=== PATIENT | female | born 1970 | race Caucasian/White ===

== ENCOUNTER 2017-06-17 14:29 | Inpatient (IN) | payer OTHER ==
--- NOTE | 2017-06-17 14:47 | PDOC ---
Rapid Medical Evaluation Time Seen by Provider: 06/17/17 14:44 Medical Evaluation: 06/17/17 14:44 I have performed a brief in-person evaluation of this patient. The patient presents with a chief complaint of: sharp pain to LLQ since yesterday x denies hematuria, hx of stones but this is different pain, +nausea, denies vomiting/diarrhea, fever yesterday 102F, LMP - "around beg to middle of month" Pertinent physical exam findings: well appearing, VSS, no abd tenderness/ guarding I have ordered the following: labs, urine The patient will proceed to the ED for further evaluation. Discharge Disposition - Diagnosis Left sided abdominal pain - Referrals - Patient Instructions - Post Discharge Activity
[2017-06-17 15:08] LABS: HEMOGLOBIN 13.4 GM/dL (10.7-15.3); MCH 29.7 pg (25.7-33.7); MCHC 34.5 g/dl (32.0-36.0); MEAN PLT VOLUME 8.8 fl (7.5-11.1); PLATELET COUNT 177 K/MM3 (134-434); RBC 4.53 M/mm3 (3.60-5.2); WHITE BLOOD COUNT 9.1 K/mm3 (4.0-10.0)
[2017-06-17 15:45] LABS: ALBUMIN 3.5 g/dl (3.4-5.0); ANION GAP 8 (8-16); BILIRUBIN,TOTAL 0.5 mg/dL (0.2-1.0); BLOOD UREA NITROGEN 5 mg/dL (7-18); CALCIUM 8.5 mg/dL (8.5-10.1); CHLORIDE 106 mmol/L (98-107); CO2 25 mmol/L (21-32); CREATININE 0.6 mg/dL (0.55-1.02); GLUCOSE,RANDOM 101 mg/dL (74-106); POTASSIUM 3.6 mmol/L (3.5-5.1); SGOT/AST 261 U/L (15-37); SODIUM 139 mmol/L (136-145); TOT PROT 7.2 g/dl (6.4-8.2)
[2017-06-17 15:46] LABS: ALK PHOS 330 U/L (45-117)
[2017-06-17 15:47] LABS: SGPT/ALT 457 U/L (12-78)
--- NOTE | 2017-06-17 16:07 | PDOC ---
History of Present Illness - General Chief Complaint: Pain Stated Complaint: LEFT SIDE PAIN Time Seen by Provider: 06/17/17 14:44 History Source: Patient Exam Limitations: No Limitations - History of Present Illness Initial Comments: 06/17/17 16:32 Patient is a 46-year-old female past medical history of depression, anxiety, asthma, who presents emergency department today complaining of left lower quadrant pain. Patient states her pain began approximately 3 days ago and has worsened since. She describes the pain as sharp. It radiates to her suprapubic region. She states that the pain is worse when sitting up. She is tried taking ibuprofen at home with no relief. She states that she ate out at [employer] 2- 3 days ago. Patient finished antibiotic treatment "amoxicillin "for recent tooth infection. Admits to subjective fevers, chills, abdominal pain. Denies shortness of breath, difficulty breathing, chest pain, palpitations, nausea, vomiting, diarrhea, constipation, frequency, urgency and hematuria. Last LMP was 05/31/2017. Past History - Travel Traveled outside of the country in the last 30 days: No Close contact w/someone who was outside of country & ill: No - Past Medical History Allergies/Adverse Reactions: Allergies Allergy/AdvReac Type Severity Reaction Status Date / Time No Known Allergies Allergy Verified 06/17/17 14:44 Home Medications: Ambulatory Orders Butalb/Acetaminophen/Caffeine [Bqojsg-Fyugmigs-Fvws 50-325-40] 1 each PO DAILY 06/17/17 Cholecalciferol (Vitamin D3) [Vitamin D3 -] 1,000 unit PO DAILY 06/17/17 Fluticasone Propionate [Flovent Diskus] 250 mcg IH DAILY 06/17/17 Hydroxyzine HCl 50 mg PO DAILY 06/17/17 Montelukast Na [Singulair -] 10 mg PO HS 06/17/17 Nystatin Cream [Mycostatin Cream -] 1 applic TP DAILY 06/17/17 Ranitidine [Zantac -] 150 mg PO BID 06/17/17 Trazodone HCl 50 mg PO DAILY 06/17/17 Norethindrone 0.35 mg PO DAILY 06/20/17 COPD: No Psychiatric Problems: Yes (depression, anxeity, panic attacks) Other medical history: migraines - Suicide/Smoking/Psychosocial Hx Smoking History: Never smoked Information on smoking cessation initiated: No Hx Alcohol Use: No Drug/Substance Use Hx: No Substance Use Type: None Review of Systems - Review of Systems Able to Perform ROS?: Yes Comments:: 06/17/17 16:29 CONSTITUTIONAL: Presnt: subjective fever, chills Absent: diaphoresis, generalized weakness, malaise, loss of appetite HEENT: Absent: rhinorrhea, nasal congestion, throat pain, throat swelling, difficulty swallowing, mouth swelling, ear pain, eye pain, visual Changes CARDIOVASCULAR: Absent: chest pain, loss of consciousness, palpitations, irregular heart rate, peripheral edema RESPIRATORY: Absent: cough, shortness of breath, dyspnea with exertion, orthopnea, wheezing, stridor, hemoptysis GASTROINTESTINAL: Present: abdominal pain, LLQ Absent: abdominal distension, nausea, vomiting, diarrhea, constipation, melena, hematochezia GENITOURINARY: Absent: dysuria, frequency, urgency, hesitancy, hematuria, flank pain, genital pain MUSCULOSKELETAL: Absent: myalgia, arthralgia, joint swelling SKIN: Absent: rash, itching, pallor HEMATOLOGIC/IMMUNOLOGIC: Absent: easy bleeding, easy bruising, lymphadenopathy, frequent infections ENDOCRINE: Absent: unexplained weight gain, unexplained weight loss, heat intolerance, cold intolerance NEUROLOGIC: Absent: headache, focal weakness or paresthesias, dizziness, unsteady gait, seizure, mental status changes, bladder or bowel incontinence PSYCHIATRIC: Absent: anxiety, depression, suicidal or homicidal ideation, hallucinations. Is the patient limited [place] proficient: No *Physical Exam - Vital Signs Last Vital Signs Temp Pulse Resp BP Pulse Ox 98.5 F 88 18 141/80 100 06/17/17 14:45 06/17/17 14:45 06/17/17 14:45 06/17/17 14:45 06/17/17 14:45 - Physical Exam Comments: 06/17/17 16:29 GENERAL: Well developed, well nourished. Awake and alert. No acute distress. HEENT: Normocephalic, atraumatic. PERRLA, EOMI. No conjunctival pallor. Sclera are non- icteric. Moist mucous membranes. Oropharynx is clear. NECK: Supple. Full ROM. No JVD. Carotid pulses 2+ and symmetric, without bruits. No thyromegaly. No lymphadenopathy. CARDIOVASCULAR: Regular rate and rhythm. No murmurs, rubs, or gallops. Distal pulses are 2+ and symmetric. PULMONARY: No evidence of respiratory distress. Lungs clear to auscultation bilaterally. No wheezing, rales or rhonchi. ABDOMINAL: Present: LLQ pain with light and deep palpation. Soft. Non-distended. No rebound or guarding. No organomegaly. Normoactive bowel sounds. MUSCULOSKELETAL Normal range of motion at all joints. No bony deformities or tenderness. No CVA tenderness. EXTREMITIES: No cyanosis. No clubbing. No edema. No calf tenderness. SKIN: Warm and dry. Normal capillary refill. No rashes. No jaundice. NEUROLOGICAL: Alert, awake, appropriate. Cranial nerves 2-12 intact. No deficits to light touch and temperature in face, upper extremities and lower extremities. No motor deficits in the in face, upper extremities and lower extremities. Normoreflexic in the upper and lower extremities. Normal speech. Toes are down- going bilaterally. Gait is normal without ataxia. PSYCHIATRIC: Cooperative. Good eye contact. Appropriate mood and affect. ED Treatment Course - LABORATORY CBC & Chemistry Diagram: 06/19/17 07:24 06/18/17 07:05 - ADDITIONAL ORDERS Additional order review: Laboratory Results 06/17/17 14:55 Sodium 139 Potassium 3.6 Chloride 106 Carbon Dioxide 25 Anion Gap 8 BUN 5 L Creatinine 0.6 Creat Clearance w eGFR > 60 Random Glucose 101 Calcium 8.5 Total Bilirubin 0.5 AST 261 H ALT 457 H Alkaline Phosphatase 330 H Total Protein 7.2 Albumin 3.5 06/17/17 14:55 RBC 4.53 MCV 86.0 MCHC 34.5 RDW 14.0 MPV 8.8 Neutrophils % No Result Required. Lymphocytes % No Result Required. Medical Decision Making - Medical Decision Making 06/17/17 16:30 Patient is a 46-year-old female with past medical history of depression, anxiety , asthma, who presents to emergency department today complaining of left lower quadrant pain. Patient recently finished amoxicillin for tooth infection. Also ate at a restaurant, possible food poisoning? Left lower quadrant pain on exam with light and deep palpation. Labs ordered RME. We'll scan patient at this time with IV contrast and oral contrast to rule out diverticulitis versus colitis. Less likely kidney stone or appendicitis given location of pain. We'll reevaluate. 06/17/17 18:28 Labs remarkable for elevated liver enzymes. Pt. still pending CT. 06/17/17 19:00 Sign out given to ERICK Vázquez. Pt. pending CT and dispo. *DC/Admit/Observation/Transfer Diagnosis at time of Disposition: Left sided abdominal pain, Splenic infarction - Referrals - Patient Instructions - Post Discharge Activity
[2017-06-17 16:31] LABS: URINE APPEARANCE SLCLOUDY; URINE BILIRUBIN NEGATIVE (<2.0 mg/dL); URINE BLOOD 1+ (NEGATIVE); URINE COLOR YELLOW; URINE GLUCOSE (UA) NEGATIVE (NEGATIVE); URINE KETONE NEGATIVE (NEGATIVE); URINE LEUK ESTERASE NEGATIVE (NEGATIVE); URINE NITRITE NEGATIVE (NEGATIVE); URINE PROTEIN NEGATIVE (NEGATIVE)
[2017-06-17] MEDS ORDERED: SODIUM CHLORIDE 1,000 ML IV STA (16:32)
[2017-06-17] MEDS ORDERED: ACETAMINOPHEN 1000 MG/100 ML VIAL (NON FORMULARY) IVPB ONE (16:32)
[2017-06-17 16:33] LABS: PLATELET ESTIMATE ADEQUATE
[2017-06-17 16:51] LABS: HCG,QUALITATIVE URINE NEGATIVE
[2017-06-17 16:56] LABS: EPI CELLS MODERATE /HPF (FEW); URINE BACTERIA RARE /hpf (NONE SEEN); URINE MUCUS RARE
[2017-06-17] MEDS ORDERED: ACETAMINOPHEN INJECTION 100 ML IVPB ONE (16:56)
--- NOTE | 2017-06-17 21:15 | PDOC ---
*Physical Exam - Vital Signs Last Vital Signs Temp Pulse Resp BP Pulse Ox 98.5 F 88 18 141/80 100 06/17/17 14:45 06/17/17 14:45 06/17/17 14:45 06/17/17 14:45 06/17/17 14:45 Heart Score/ECG Review - History History: Slightly suspicious - Electrocardiogram EKG: Normal - Age Age: >/= 65 - Risk Factors Risk Factors Heart Score: Yes Hx Obesity Based on the list above the patient has:: 1-2 risk factors - Troponin Troponin: </= normal limit - Score Heart Score - Total: 3 ED Treatment Course - LABORATORY CBC & Chemistry Diagram: 06/17/17 14:55 06/17/17 14:55 - ADDITIONAL ORDERS Additional order review: Laboratory Results 06/17/17 06/17/17 16:13 14:55 Sodium 139 Potassium 3.6 Chloride 106 Carbon Dioxide 25 Anion Gap 8 BUN 5 L Creatinine 0.6 Creat Clearance w eGFR > 60 Random Glucose 101 Calcium 8.5 Total Bilirubin 0.5 AST 261 H ALT 457 H Alkaline Phosphatase 330 H Total Protein 7.2 Albumin 3.5 Urine Color Yellow Urine Appearance Slcloudy Urine pH 5.0 Ur Specific [place] 1.013 Urine Protein Negative Urine Glucose (UA) Negative Urine Ketones Negative Urine Blood 1+ H Urine Nitrite Negative Urine Bilirubin Negative Urine Urobilinogen 2.0 H Ur Leukocyte Esterase Negative Urine WBC (Auto) 3 Urine RBC (Auto) 4 Ur Epithelial Cells Moderate Urine Bacteria Rare Urine Mucus Rare Urine HCG, Qual Negative 06/17/17 14:55 RBC 4.53 MCV 86.0 MCHC 34.5 RDW 14.0 MPV 8.8 Neutrophils % No Result Required. Lymphocytes % No Result Required. - Medications Given in the ED: ED Medications Discontinued Medications Generic Name Dose Route Start Last Admin Trade Name Freq PRN Reason Stop Dose Admin Acetaminophen 1,000 mg 06/17/17 16:32 06/17/17 17:01 Ofirmev Injection - IVPB 06/17/17 16:33 1,000 mg ONCE ONE Administration Sodium Chloride 1,000 mls @ 1,000 mls/hr 06/17/17 16:32 06/17/17 16:45 Normal Saline - IV 06/17/17 17:31 1,000 mls/hr ASDIR STA Administration Progress Note - Progress Note Progress Note: 2101hrs: Spoke to Dr. Quintanilla/GI section gang. As per Dr. Jarrett, pt needs to be admitted with a hematology consult. Dr Jarrett re Hospitalist admit. Dr. Quintanilla will see pt tomorrow. 2120hrs: Spoke to Dr. Villalobos/hematology. Start Heparin bolus then drip. Will see pt in the am 2122hrs: [facility] *DC/Admit/Observation/Transfer Diagnosis at time of Disposition: Left sided abdominal pain, Splenic infarction - Discharge Dispostion Admit: Yes - Referrals Referrals: ON STAFF,NOT [Primary Care Provider] - - Patient Instructions - Post Discharge Activity
[2017-06-17] MEDS ORDERED: HEPARIN NA (PORCINE) 5,000 UNITS/ML 1ML VIAL IVPUSH PRN ×2 (22:26)
[2017-06-17] MEDS ORDERED: ACETAMINOPHEN 325 MG TABLET (FP) PO PRN (23:59)
--- NOTE | 2017-06-18 00:01 | HP ---
CHIEF COMPLAINT: " LUQ pain, fever " PCP: Dr. Cole. HISTORY OF PRESENT ILLNESS: Patient is a 46 year old female presented to the ED with the chief complaint of "LUQ pain" x 3 days. As per the patient, she started having LUQ suddenly, periumbilical area, intermittent, sharp, stabbing type of pain, non radiating, not relieved by any measures, limiting her to move or even sleep, 10/10 in intensity prompting to visit the ED for further evaluation . It was associated with nausea but no vomiting. Since 3 days, also had chest tightness, in the sternal area, non radiating, 5/10 in intensity. Patient mentions she had a temp of 101 F, had tooth ache, x 1.5 wks ago for which she visited her dentist. She was told she had a tooth infection and was given Amoxicillin QID, course of treatment is not completed but she stopped it yesterday due to LUQ thinking the abx to be the attributing cause. Also has been taking Motrin for tooth ache and Fever x 1 week. Denies sob, cough, palpitation, headache, dizziness, loc, trauma. Gives h/o use of OCP for more than 10 yrs, stopped taking OCP's since Feb, 2017. Sleep disturbed due to pain. Appetite decreased. Bowel/Bladder habit normal. LMP: 05/31/2017 As per the ED PA, she spoke with Dr. Villalobos/Dr. Jarrett who recommended to start the patient on Heparin drip. ER course was notable for: (1) Afebrile, hemodynamically stable, Transaminitis (2) Abdomen/Pelvis CT: showed Splenic infarct, spleenomegaly (3) NS 1L; Heparin Drip Recent Travel: None PAST MEDICAL HISTORY: Depression, Anxiety, Asthma PAST SURGICAL HISTORY: None Social History: Smoking: Denies Alcohol: Rarely Drugs: Denies Family History: Non contributory Allergies No Known Allergies Allergy (Verified 06/17/17 14:44) HOME MEDICATIONS: Home Medications Medication Instructions Recorded Butalb/Acetaminophen/Caffeine 1 each PO DAILY 06/17/17 [[id number] 50-325-40] Cholecalciferol (Vitamin D3) 1,000 unit PO DAILY 06/17/17 [Vitamin D3 -] Fluticasone Propionate [Flovent 250 mcg IH DAILY 06/17/17 Diskus] Hydroxyzine HCl 50 mg PO DAILY 06/17/17 Montelukast Na [Singulair -] 10 mg PO HS 06/17/17 Nystatin Cream [Mycostatin Cream -] 1 applic TP DAILY 06/17/17 Ranitidine [Zantac -] 150 mg PO BID 06/17/17 Trazodone HCl 50 mg PO DAILY 06/17/17 REVIEW OF SYSTEMS CONSTITUTIONAL: Present: Fever Absent: chills, diaphoresis, generalized weakness, malaise, loss of appetite, weight change HEENT: Absent: rhinorrhea, nasal congestion, throat pain, throat swelling, difficulty swallowing, mouth swelling, ear pain, eye pain, visual changes CARDIOVASCULAR: Absent: chest pain, syncope, palpitations, irregular heart rate, lightheadedness , peripheral edema RESPIRATORY: Absent: cough, shortness of breath, dyspnea with exertion, orthopnea, wheezing, stridor, hemoptysis GASTROINTESTINAL: Present: abdominal pain, nausea Absent:abdominal distension, vomiting, diarrhea, constipation, melena, hematochezia GENITOURINARY: Absent: dysuria, frequency, urgency, hesitancy, hematuria, flank pain, genital pain MUSCULOSKELETAL: Absent: myalgia, arthralgia, joint swelling, back pain, neck pain SKIN: Absent: rash, itching, pallor HEMATOLOGIC/IMMUNOLOGIC: Absent: easy bleeding, easy bruising, lymphadenopathy, frequent infections ENDOCRINE: Absent: unexplained weight gain, unexplained weight loss, heat intolerance, cold intolerance NEUROLOGIC: Absent: headache, focal weakness or paresthesias, dizziness, unsteady gait, seizure, mental status changes, bladder or bowel incontinence PSYCHIATRIC: Absent: anxiety, depression, suicidal or homicidal ideation, hallucinations. PHYSICAL EXAMINATION Vital Signs - 24 hr 06/17/17 14:45 Temperature 98.5 F Pulse Rate 88 Respiratory 18 Rate Blood Pressure 141/80 O2 Sat by Pulse 100 Oximetry (%) GENERAL: Young obese female, lying comfortably in bed, Awake, alert, and fully oriented, in no acute distress. HEAD: Normal with no signs of trauma. EYES: EOM intact, no pallor or icterus. EARS, NOSE, THROAT: Ears normal. Moist mucous membranes. NECK: Supple. LUNGS: Breath sounds equal, clear to auscultation bilaterally. No wheezes, and no crackles. No accessory muscle use. HEART: Regular rate and rhythm, normal S1 and S2 without murmur. ABDOMEN: Soft, tenderness in the LUQ, umbilical area, not distended, normoactive bowel sounds, no guarding, no rebound, no masses. Palpable spleen. No hepatomegaly. MUSCULOSKELETAL: Normal range of motion at all joints. No bony deformities or tenderness. No CVA tenderness. UPPER EXTREMITIES: 2+ pulses, warm, well-perfused. No cyanosis. No clubbing. No peripheral edema. LOWER EXTREMITIES: 2+ pulses, warm, well-perfused. No calf tenderness. No peripheral edema. NEUROLOGICAL: No facial droop, Cranial nerves II-XII intact. Normal speech. Gait not observed. PSYCHIATRIC: Cooperative. Good eye contact. Appropriate mood and affect. SKIN: Warm, dry, normal turgor, no rashes or lesions noted, normal capillary refill. Laboratory Results - last 24 hr 06/17/17 06/17/17 06/17/17 14:55 14:55 16:13 WBC 9.1 RBC 4.53 Hgb 13.4 Hct 39.0 MCV 86.0 MCH 29.7 MCHC 34.5 RDW 14.0 Plt Count 177 MPV 8.8 Neutrophils % No Result Required. Neutrophils % (Manual) 28.0 L Band Neutrophils % 6.0 Lymphocytes % No Result Required. Lymphocytes % (Manual) 54.0 H Monocytes % (Manual) 1 L Eosinophils % (Manual) 1.0 Basophils % (Manual) 0.0 Platelet Estimate Adequate Sodium 139 Potassium 3.6 Chloride 106 Carbon Dioxide 25 Anion Gap 8 BUN 5 L Creatinine 0.6 Creat Clearance w eGFR > 60 Random Glucose 101 Calcium 8.5 Total Bilirubin 0.5 AST 261 H ALT 457 H Alkaline Phosphatase 330 H Total Protein 7.2 Albumin 3.5 Urine Color Yellow Urine Appearance Slcloudy Urine pH 5.0 Ur Specific [place] 1.013 Urine Protein Negative Urine Glucose (UA) Negative Urine Ketones Negative Urine Blood 1+ H Urine Nitrite Negative Urine Bilirubin Negative Urine Urobilinogen 2.0 H Ur Leukocyte Esterase Negative Urine WBC (Auto) 3 Urine RBC (Auto) 4 Ur Epithelial Cells Moderate Urine Bacteria Rare Urine Mucus Rare Urine HCG, Qual Negative Abdomen/Pelvis CT: A 4.3 x 2.7 cm splenic focus is seen strongly suggestive of infarction, probably acute or subacute. Correlate clinically and with follow-up CT. Mild splenomegaly (14.3 cm length). A 2 cm involuting left ovarian cyst is noted. No definite CT evidence of acute diverticulitis or colitis. A 1 cm left hepatic lobe hypodense focus is seen probably representing a cyst. Characterization is somewhat difficult on this exam due to the small size of this focus. Correlate with 3 month follow- up MRI or CT. ASSESSMENT/PLAN: Patient is a 46 year old female presented to the ED with the chief complaint of "LUQ pain" x 3 days. # Splenic infarction acute vs subacute likely due to use of OCP would like to r/o malignancy c/o LUQ, periumbilical area x [address] abdomen/Pelvis showed Acute vs subacute infarction 4.3 cm x 2.7 cm Admit in Med-Surg IV Heparin Drip started, monitor PTT and adjust as per protocol Watch for any bleeding Duplex of B/L lower ext-negative for DVT Dr. Ortiz consult requested Dr. Villalobos consult requested # LUQ pain could also be due to Left ovarian cyst 2cm, would recommend to follow up with [facility] as outpatient. # Transminitis AST/ALT/ALP: 261/451/330 Will send Hepatitis panel Repeat LFTS in AM # Chest pain low suspicion for ACS but will order Troponin to r/o EKG NSR # Depression/Anxiety Used to take Hydroxyzine 50mg Daily, Trazodone 50mg PO daily but stopped taking it # Asthma- Not in exacerbation Not taking [place]et[place]ast anymore . # FEN Not on IV fluids, can tolerate PO Electrolytes WNL Regular diet # Prophylaxis For DVT: On Heparin drip For GI: Ranitidine # Code Status: Full Code # Dispo: Admitted in Med Surg. Duration of stay unknown. Illness, Investigation and Plan of care explained to the patient. She verbalized understanding. Case discussed with Dr. Lunsford. Visit type - Emergency Visit Emergency Visit: Yes ED Registration Date: 06/17/17 Care time: The patient presented to the Emergency Department on the above date and was hospitalized for further evaluation of their emergent condition. - New Patient This patient is new to me today: Yes Date on this admission: 06/17/17 - Critical Care Critical Care patient: No Hospitalist Screening - Colonoscopy Questionnaire Colonoscopy Questionnaire: Colonoscopy Questionnaire - Patient: 50 - 75 years old and never had a screening colonoscopy: Unknown History of colon or rectal polyps, or CA: Unknown History of IBD, Crohn's disease or UC: Unknown History of abdominal radiation therapy as a child: Unknown - Relative: 1 with colon or rectal CA, or polyps at age 60 or younger: Unknown Colon or rectal CA diagnosed at age 45 or younger: Unknown Multiple relatives with colon or rectal CA: Unknown - Outcome: Screening Result: Negative Screen
[2017-06-18 00:43] LABS: INR 1.12 (0.82-1.09); PROTHROMBIN TIME (PATIENT) 12.6 SEC (9.7-13.0)
[2017-06-18] MEDS: HEPARIN INFUSION - 25,000 UNITS/500 ML INFUS.BAG IVPB SCH (02:26)
[2017-06-18 04:18] VITALS: BMI 34.2
--- NOTE | 2017-06-18 06:48 | PN ---
Teaching Attending Note Name of Resident: Caroline Lawson ATTENDING PHYSICIAN STATEMENT I saw and evaluated the patient. I reviewed the resident's note and discussed the case with the resident. I agree with the resident's findings and plan as documented. 46 y/o F presented c/o LLQ abdominal pain for 3 days with no improvement and chest tightness. Pain described as 10/10. Patient had recent dental infection and was treated with amoxicillin prior to onset of symptoms. On evaluation found to have splenic infarct. Patient started on heparin drip as per recommendation of GI and hematology consultants. morphine prn for pain. DVT prophylaxis already on anticoagulation.
[2017-06-18 07:45] LABS: HEMATOCRIT 38.1 % (32.4-45.2); HEMOGLOBIN 13.3 GM/dL (10.7-15.3); MCH 30.1 pg (25.7-33.7); MEAN CELL VOLUME 86.2 fl (80-96); MEAN PLT VOLUME 8.8 fl (7.5-11.1); PLATELET COUNT 166 K/MM3 (134-434); RBC 4.42 M/mm3 (3.60-5.2); RDW 13.9 % (11.6-15.6); WHITE BLOOD COUNT 7.7 K/mm3 (4.0-10.0)
[2017-06-18 08:53] LABS: CHLORIDE 105 mmol/L (98-107); POTASSIUM 3.5 mmol/L (3.5-5.1); SODIUM 140 mmol/L (136-145)
[2017-06-18 09:06] LABS: ALBUMIN 3.3 g/dl (3.4-5.0); ALK PHOS 298 U/L (45-117); ANION GAP 10 (8-16); BILIRUBIN,TOTAL 0.6 mg/dL (0.2-1.0); BLOOD UREA NITROGEN 4 mg/dL (7-18); CALCIUM 8.3 mg/dL (8.5-10.1); CO2 25 mmol/L (21-32); CREATININE 0.5 mg/dL (0.55-1.02); GLUCOSE,RANDOM 94 mg/dL (74-106); SGOT/AST 269 U/L (15-37); TOT PROT 6.8 g/dl (6.4-8.2)
[2017-06-18 09:07] LABS: SGPT/ALT 457 U/L (12-78)
[2017-06-18] MEDS ORDERED: PT OWN MED DRAWER 7, Y5N ONE (09:23)
[2017-06-18] MEDS: ONDANSETRON 4 MG/2 ML VIAL IVPB PRN ×2 (09:45→20:57)
[2017-06-18] MEDS: morphine SULFATE 4 MG/ML VIAL IVPUSH PRN ×2 (09:45→20:48)
[2017-06-18] MEDS: NYSTATIN 100,000 UNIT/GM TOPICAL CREAM 15 GM TUBE TP SCH (09:46)
[2017-06-18] MEDS ORDERED: RANITIDINE HCL 150 MG TABLET (FP) PO SCH (10:00)
--- NOTE | 2017-06-18 11:31 | EKG ---
Test Reason : Blood Pressure : / mmHG Vent. Rate : 073 BPM Atrial Rate : 073 BPM P-R Int : 136 ms QRS Dur : 072 ms QT Int : 364 ms P-R-T Axes : 021 014 023 degrees QTc Int : 401 ms NORMAL SINUS RHYTHM WITH SINUS ARRHYTHMIA NORMAL ECG NO PREVIOUS ECGS AVAILABLE Confirmed by LIVE GARCIA MD ([id number]) on 06/18/2017 11:31:14 AM Referred By: Confirmed By:LIVE GARCIA MD
--- NOTE | 2017-06-18 12:41 | CONSULT ---
Consult - text type - Consultation Consultation Note: HEMATOLOGY CONSULT NOTE HISTORY OF PRESENT ILLNESS: This is a 46 year old female who came in with Left upper quadrant pain for 2 days worse on inspiration. She also ahs periumbilical pain. She recently had a course of antibiotics for a suspected dental infection, completed 3 days ago which was mainly characteized by fever. No h/o of sore throat recently. She has been using OCP for 10 years but she is currently not on OCP. She never had blood clots before. No h/o of erythema after showering (PV). 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 The portal vein is intact. Recent Travel: None PAST MEDICAL HISTORY: Depression, Anxiety, Asthma PAST SURGICAL HISTORY: None Social History: Smoking: Denies Alcohol: Rarely Drugs: Denies Family History: Non contributory Allergies No Known Allergies Allergy (Verified 06/17/17 14:44) HOME MEDICATIONS: Home Medications Medication Instructions Recorded Butalb/Acetaminophen/Caffeine 1 each PO DAILY 06/17/17 [Nzylcu-Wqrrvgbp-Aaty 50-325-40] Cholecalciferol (Vitamin D3) 1,000 unit PO DAILY 06/17/17 [Vitamin D3 -] Fluticasone Propionate [Flovent 250 mcg IH DAILY 06/17/17 Diskus] Hydroxyzine HCl 50 mg PO DAILY 06/17/17 Montelukast Na [Singulair -] 10 mg PO HS 06/17/17 Nystatin Cream [Mycostatin Cream -] 1 applic TP DAILY 06/17/17 Ranitidine [Zantac -] 150 mg PO BID 06/17/17 Trazodone HCl 50 mg PO DAILY 06/17/17 REVIEW OF SYSTEMS CONSTITUTIONAL: Present: Fever Absent: chills, diaphoresis, generalized weakness, malaise, loss of appetite, weight change HEENT: Absent: rhinorrhea, nasal congestion, throat pain, throat swelling, difficulty swallowing, mouth swelling, ear pain, eye pain, visual changes CARDIOVASCULAR: Absent: chest pain, syncope, palpitations, irregular heart rate, lightheadedness , peripheral edema RESPIRATORY: Absent: cough, shortness of breath, dyspnea with exertion, orthopnea, wheezing, stridor, hemoptysis GASTROINTESTINAL: Present: abdominal pain, nausea Absent:abdominal distension, vomiting, diarrhea, constipation, melena, hematochezia GENITOURINARY: Absent: dysuria, frequency, urgency, hesitancy, hematuria, flank pain, genital pain MUSCULOSKELETAL: Absent: myalgia, arthralgia, joint swelling, back pain, neck pain SKIN: Absent: rash, itching, pallor HEMATOLOGIC/IMMUNOLOGIC: Absent: easy bleeding, easy bruising, lymphadenopathy, frequent infections ENDOCRINE: Absent: unexplained weight gain, unexplained weight loss, heat intolerance, cold intolerance NEUROLOGIC: Absent: headache, focal weakness or paresthesias, dizziness, unsteady gait, seizure, mental status changes, bladder or bowel incontinence PSYCHIATRIC: Absent: anxiety, depression, suicidal or homicidal ideation, hallucinations. PHYSICAL EXAMINATION Vital Signs Period Temp Pulse Resp BP Sys/Gauthier Pulse Ox Last 24 Hr 97.7 F-98.5 F 79-88 18-19 109-141/49-80 98-100 GENERAL: lying comfortably in bed, Awake, alert, and fully oriented, in no acute distress. HEAD: Normal with no signs of trauma. EYES: EOM intact, no pallor or icterus. EARS, NOSE, THROAT: Ears normal. Moist mucous membranes. NECK: Supple. LUNGS: Breath sounds equal, clear to auscultation bilaterally. No wheezes, and no crackles. No accessory muscle use. HEART: Regular rate and rhythm, normal S1 and S2 without murmur. ABDOMEN: Soft, tenderness in the LUQ, no guarding, no rebound, no masses. MUSCULOSKELETAL: Normal range of motion at all joints. No bony deformities or tenderness. No CVA tenderness. UPPER EXTREMITIES: 2+ pulses, warm, well-perfused. No cyanosis. No clubbing. No peripheral edema. LOWER EXTREMITIES: 2+ pulses, warm, well-perfused. No calf tenderness. No peripheral edema. NEUROLOGICAL: No facial droop, Cranial nerves II-XII intact. Normal speech. Gait not observed. PSYCHIATRIC: Cooperative. Good eye contact. Appropriate mood and affect. SKIN: Warm, dry, normal turgor, no rashes or lesions noted, normal capillary refill. CBC, BMP 06/18/17 07:05 06/18/17 07:05 Abdomen/Pelvis CT: A 4.3 x 2.7 cm splenic focus is seen strongly suggestive of infarction, probably acute or subacute. Correlate clinically and with follow-up CT. Mild splenomegaly (14.3 cm length). A 2 cm involuting left ovarian cyst is noted. No definite CT evidence of acute diverticulitis or colitis. A 1 cm left hepatic lobe hypodense focus is seen probably representing a cyst. Characterization is somewhat difficult on this exam due to the small size of this focus. Correlate with 3 month follow- up MRI or CT. Duplex of B/L lower ext-negative for DVT ASSESSMENT/PLAN: Patient is a 46 year old female presented to the ED with the chief complaint of "LUQ pain" x 3 days. Acute Splenic infarction The ddx is broad - Hypercoagulable state, MPN- PV anyi., Infective endocarditis- recent dental infection, Pancreatitis, EBV infection -I am inclined to think that this in an infectious cause at this time due to the recent h/o of fevers followed by transaminitis and splenic infarction -Continue heparin drip per protocol -We will send VAIBHAV mutations on Tuesday to r/o PV -Blood cx* 2 to r/o infective endocarditis, TTE initially -We will send hypercoagulable once she is off heparin and if her other tests are negative -EBV, Parvo virus, CMV serology (agree with Hepatitis serology) -Amylase, Lipase to r/o pancreatitis -An ID consult will be helpful if the primary team agrees -Continue pain control as per primary team Transaminitis
--- NOTE | 2017-06-18 13:24 | CON.GI ---
Consult Consult Specialty:: Gastroenterology ( covering Dr Cole) Referred by:: Neeraj Vázquez NP Reason for Consultation:: Abdominal pain - History of Present Illness Chief Complaint: Sharp left abdominal pain History of Present Illness: 46F developed abrupt onset left paraumbical pain yesterday. The pain is not affected by eating or defecation. She denies nausea or vomiting. The pain has a pleuritic component and is aggravated by deep inspiration and coughing. It is also aggravated by changing her position. She has chronic constipation but no other GI problems. 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 She denies IVDA,tattoos, blood transfusions and alcohol usage. She was taking control until 03/10. She denies any history of previous thrombosis or bleeding after wisdom tooth extractions. She did have post bunionectomy bleeding which was attributed to weight bearing too soon postoperatively. - History Source History Provided By: Patient Limitations to Obtaining History: No Limitations - Past Medical History Cardio/Vascular: Yes: Hyperlipdemia Pulmonary: Yes: Asthma Renal/: Yes: Renal Calculi (required ESWL) ...LMP: 05/31/17 ...: No Endocrine: Yes: Other (" prediabetic") - Past Surgical History Additional Surgical History: bunionectomy. wisdom teeth extractions - Alcohol/Substance Use Hx Alcohol Use: No - Smoking History Smoking history: Never smoked Home Medications - Allergies Allergies/Adverse Reactions: Allergies Allergy/AdvReac Type Severity Reaction Status Date / Time No Known Allergies Allergy Verified 06/17/17 14:44 - Home Medications Home Medications: Ambulatory Orders Butalb/Acetaminophen/Caffeine [Taqvpi-Ksrzioub-Bbtw 50-325-40] 1 each PO DAILY 06/17/17 Cholecalciferol (Vitamin D3) [Vitamin D3 -] 1,000 unit PO DAILY 06/17/17 Fluticasone Propionate [Flovent Diskus] 250 mcg IH DAILY 06/17/17 Hydroxyzine HCl 50 mg PO DAILY 06/17/17 Montelukast Na [Singulair -] 10 mg PO HS 06/17/17 Nystatin Cream [Mycostatin Cream -] 1 applic TP DAILY 06/17/17 Ranitidine [Zantac -] 150 mg PO BID 06/17/17 Trazodone HCl 50 mg PO DAILY 06/17/17 Family Disease History - Family Disease History Family Disease History: Diabetes: Father ( [place] in his 50's), Mother (thyroid disease, 85), Brother, Sister, Heart Disease: Father Review of Systems - Review of Systems Constitutional: reports: No Symptoms Eyes: reports: No Symptoms HENT: reports: No Symptoms Neck: reports: No Symptoms Cardiovascular: reports: No Symptoms Respiratory: reports: No Symptoms Gastrointestinal: reports: Constipation Genitourinary: reports: No Symptoms Musculoskeletal: reports: No Symptoms Neurological: reports: No Symptoms Physical Exam-GI Vital Signs: Vital Signs Temperature 98.0 F 06/18/17 11:00 Pulse Rate 82 06/18/17 11:00 Respiratory Rate 19 06/18/17 11:00 Blood Pressure 124/69 06/18/17 11:00 O2 Sat by Pulse Oximetry (%) 98 06/18/17 03:45 CBC,CMP WBC 7.7 K/mm3 (4.0-10.0) 06/18/17 07:05 RBC 4.42 M/mm3 (3.60-5.2) 06/18/17 07:05 Hgb 13.3 GM/dL (10.7-15.3) 06/18/17 07:05 Hct 38.1 % (32.4-45.2) 06/18/17 07:05 MCV 86.2 fl (80-96) 06/18/17 07:05 MCH 30.1 pg (25.7-33.7) 06/18/17 07:05 MCHC 35.0 g/dl (32.0-36.0) 06/18/17 07:05 RDW 13.9 % (11.6-15.6) 06/18/17 07:05 Plt Count 166 K/MM3 (134-434) 06/18/17 07:05 MPV 8.8 fl (7.5-11.1) 06/18/17 07:05 Neutrophils % No Result Required. 06/18/17 07:05 Neutrophils % (Manual) 28.0 % (42.8-82.8) L 06/17/17 14:55 Band Neutrophils % 6.0 % 06/17/17 14:55 Lymphocytes % No Result Required. 06/18/17 07:05 Lymphocytes % (Manual) 54.0 % (8-40) H 06/17/17 14:55 Monocytes % (Manual) 1 % (3.8-10.2) L 06/17/17 14:55 Eosinophils % (Manual) 1.0 % (0-4.5) 06/17/17 14:55 Basophils % (Manual) 0.0 % (0-2.0) 06/17/17 14:55 Platelet Estimate Adequate 06/17/17 14:55 Sodium 140 mmol/L (136-145) 06/18/17 07:05 Potassium 3.5 mmol/L (3.5-5.1) 06/18/17 07:05 Chloride 105 mmol/L (98-107) 06/18/17 07:05 Carbon Dioxide 25 mmol/L (21-32) 06/18/17 07:05 Anion Gap 10 (8-16) 06/18/17 07:05 BUN 4 mg/dL (7-18) L 06/18/17 07:05 Creatinine 0.5 mg/dL (0.55-1.02) L 06/18/17 07:05 Creat Clearance w eGFR > 60 (>60) 06/18/17 07:05 Random Glucose 94 mg/dL (74-106) 06/18/17 07:05 Calcium 8.3 mg/dL (8.5-10.1) L 06/18/17 07:05 Total Bilirubin 0.6 mg/dL (0.2-1.0) 06/18/17 07:05 AST 269 U/L (15-37) H 06/18/17 07:05 ALT 457 U/L (12-78) H 06/18/17 07:05 Alkaline Phosphatase 298 U/L (45-117) H 06/18/17 07:05 Troponin I < 0.02 ng/ml (0.00-0.05) 06/18/17 07:05 Total Protein 6.8 g/dl (6.4-8.2) 06/18/17 07:05 Albumin 3.3 g/dl (3.4-5.0) L 06/18/17 07:05 Current Medications Generic Name Dose Route Start Last Admin Trade Name Freq PRN Reason Stop Dose Admin Acetaminophen 650 mg 04/27/18 23:59 Tylenol - PO 06/19/17 06:00 ONCE PRN PAIN LEVEL 7 - 10 Heparin Sodium (Porcine) 1,000 unit 06/17/17 22:26 06/18/17 11:46 Heparin - IVPUSH 1,000 unit PRN PRN Administration Heparin Heparin Sodium (Porcine) 5,000 unit 06/17/17 22:26 Heparin - IVPUSH PRN PRN Heparin Heparin Sodium/Dextrose 25,000 units in 500 mls @ 20 mls/hr 06/17/17 22:30 11:46 Heparin Infusion - IVPB 1,100 units/hr TITR DAKSHA 22 mls/hr Protocol Titration 1,000 UNITS/HR Morphine Sulfate 1 mg 06/18/17 06:49 06/18/17 09:45 Morphine Sulfate IVPUSH 1 mg Q6H PRN Administration PAIN LEVEL 6-10 Nystatin 1 applic 06/18/17 10:00 06/18/17 09:46 Mycostatin Cream - TP Not Given DAILY [facility] Ondansetron HCl 4 mg 06/18/17 09:26 06/18/17 09:45 Zofran Injection IVPB 4 mg Q6H PRN Administration NAUSEA AND/OR VOMITING Constitutional: Yes: Calm Eyes: Yes: Conjunctiva Clear HENT: Yes: Normocephalic Neck: Yes: Trachea Midline Cardiovascular: Yes: Regular Rate and Rhythm Respiratory: Yes: CTA Bilaterally ...Auscultate: Yes: Normoactive Bowel Sounds ...Palpate: Yes: Tenderness (left subcostal and left paraumbilical areas) ...Rectal Exam: Yes: Guaiac Negative, Sphincter Tone Normal Edema: No Peripheral Pulses WNL: Yes Neurological: Yes: Alert, Oriented Labs: CBC, BMP 06/18/17 07:05 06/18/17 07:05 INR, PTT INR 1.12 (0.82-1.09) 06/17/17 23:39 Laboratory Tests 06/17/17 06/18/17 06/18/17 14:55 07:05 07:05 Hgb 13.3 Plt Count 166 Total Bilirubin 0.5 0.6 AST 261 H 269 H ALT 457 H 457 H Alkaline Phosphatase 330 H 298 H Albumin 3.5 Imaging - Results Cat Scan: Report Reviewed (Flakito Joshi Name: [facility] DEPARTMENT OF RADIOLOGY Phys: Sciliano, Yumiko PA : 1970 Age: 46 Sex: F [facility] Acct: [id number] Loc: [address] Exam Date: 06/17/17 Status: KAYE Jasso [id number] Unit Number: [id number] EXAM#: TYPE/EXAM: RESULT: [id number] CT/ABDOMEN PELVIS CT WITH CONTR Abdomen / pelvis CT (with intravenous and oral contrast) Clinical information given: left lower quadrant pain Multiplanar imaging was performed utilizing intravenous as well as oral contrast. No prior imaging studies are available at this facility for direct comparison. An approximately 4.3 x 2.7 cm nonenhancing wedge-shaped focus is seen within the spleen inferiorly strongly suggestive of infarction, probably acute/subacute. The spleen is enlarged measuring 14.3 cm in length. The splenic vein appears patent. No evidence of pneumoperitoneum , free intraperitoneal fluid or bowel obstruction. A 2 cm involuting left ovarian cyst is seen. No CT evidence of acute diverticulitis or colitis. Mild to moderate colitis may not be demonstrable on CT. The partially visualized appendix demonstrates no obvious pathology. A discrete 1 cm left hepatic lobe low-attenuation focus is seen probably representing a cyst. The pancreas, gallbladder, adrenal glands and right kidney demonstrate no discrete abnormality. No biliary tract dilatation is noted. 3 mm nonobstructing left renal lower pole calculus There is no aortic aneurysm. No definite lymphadenopathy is identified. There is no gross small bowel pathology. The visualized osseous structures demonstrate no obvious acute abnormality. IMPRESSION: A 4.3 x 2.7 cm splenic focus is seen strongly suggestive of infarction, probably acute or subacute. Correlate clinically and with follow-up CT. Mild splenomegaly (14.3 cm length). A 2 cm involuting left ovarian cyst is noted. No definite CT evidence of acute diverticulitis or colitis. A 1 cm left hepatic lobe hypodense focus is seen probably representing a cyst. Characterization is somewhat difficult on this exam due to the small size of this focus. Correlate with 3 month follow - up MRI or CT. Reported By: Cristian Littlejohn MD 06/17/171929 Yumiko Brice Technologist: Rivera Gunn Transcribed Date/Time: 1929 [employer] Dba: Cristian Littlejohn Printed Date/Time: By: Signed by: Cristian Littlejohn Signed on: 17-Jun-2017 19:31) Problem List - Problems (1) Splenic infarction Assessment/Plan: Tamara pain appears to be related to the splenic infarction which seems to be related to her control usage. Given her lack of etiologies for liver disease and given the hypolucent liver area on the CT a hepatic thrombosis is also possible. I will nevertheless screen for chronic liver diseases and get a GB sonogram. Miralax xavi be given for her constipation Code(s): D73.5 - INFARCTION OF SPLEEN (2) Renal calculi Code(s): N20.0 - CALCULUS OF KIDNEY (3) Asthma Code(s): J45.909 - UNSPECIFIED ASTHMA, UNCOMPLICATED (4) Constipation Assessment/Plan: Suspect functional constipation. Will order Miralax Code(s): K59.00 - CONSTIPATION, UNSPECIFIED (5) Left sided abdominal pain Code(s): R10.9 - UNSPECIFIED ABDOMINAL PAIN (6) Abnormal liver enzymes Assessment/Plan: Will screen for liver diseases and gallstones but given hypolucent area on CT a hepatic thrombosis is possible. Code(s): R74.8 - ABNORMAL LEVELS OF OTHER SERUM ENZYMES
[2017-06-18 13:47] LABS: AMYLASE 31 U/L (25-115); LIPASE 74 U/L (73-393)
[2017-06-18 15:05] LABS: PLATELET ESTIMATE NORMAL
[2017-06-19 07:45] LABS: BASO % 0.4 % (0-2.0); EOS % 0.5 % (0-4.5); HEMATOCRIT 37.2 % (32.4-45.2); LYMPH % 52.8 % (8-40); MCHC 34.9 g/dl (32.0-36.0); MEAN CELL VOLUME 85.9 fl (80-96); MEAN PLT VOLUME 8.5 fl (7.5-11.1); MONO % 9.3 % (3.8-10.2); PLATELET COUNT 183 K/MM3 (134-434); RBC 4.33 M/mm3 (3.60-5.2); RDW 13.8 % (11.6-15.6)
[2017-06-19 08:55] LABS: ALBUMIN 3.1 g/dl (3.4-5.0); BILIRUBIN,DIRECT 0.3 mg/dL (0.0-0.2); BILIRUBIN,TOTAL 0.5 mg/dL (0.2-1.0); TOT PROT 7.1 g/dl (6.4-8.2)
--- NOTE | 2017-06-19 09:24 | PN ---
<Alvin Tinsley - Last Filed: 06/19/17 13:54> Physical Exam: SUBJECTIVE: Patient seen and examined. requests to change pain medication, morphine is making her dizzy and gives her a headache as it is wearing off. feels more comfortable since admission. denies sob, had some substernal chest pain wit/movement in bed last night, nonradiating, now resolved. OBJECTIVE: Vital Signs Period Temp Pulse Resp BP Sys/Gauthier Pulse Ox Last 24 Hr 97.7 F-99.3 F 82-97 19-22 124-142/60-74 98 GENERAL: The patient is awake, alert, in no acute distress. HEAD: Normal with no signs of trauma. EYES: PERRL, extraocular movements intact, sclera anicteric, conjunctiva clear. No ptosis. ENT: oropharynx clear without exudates, moist mucous membranes. no thrush NECK: Trachea midline, full range of motion, supple. no lad, no thyromegaly LUNGS: Breath sounds equal, clear to auscultation bilaterally, no wheezes, no crackles, no accessory muscle use. HEART: Regular rate and rhythm, S1, S2 without murmur, rub or gallop. ABDOMEN: Soft, nontender, nondistended, normoactive bowel sounds, no guarding, no rebound, no masses. EXTREMITIES: 2+ dp and radial b/l pulses, warm, well-perfused, no edema. NEUROLOGICAL: Cranial nerves II through XII grossly intact. Normal speech. facial symmetry PSYCH: Normal mood, normal affect. SKIN: Warm, dry, normal turgor, no rashes or lesions noted Laboratory Results - last 24 hr 06/18/17 06/18/17 06/18/17 06:55 07:05 07:05 WBC RBC Hgb Hct MCV MCH MCHC RDW Plt Count MPV Neutrophils % Neutrophils % (Manual) 21.2 L D Band Neutrophils % 13.1 Lymphocytes % Lymphocytes % (Manual) 48.5 H Monocytes % Monocytes % (Manual) 7 D Eosinophils % Eosinophils % (Manual) 1.0 Basophils % Basophils % (Manual) 0.0 Myelocytes % (Man) 0 Promyelocytes % (Man) 0 Blast Cells % (Manual) 0 Nucleated RBC % 0 Metamyelocytes 0 Platelet Estimate Normal PTT (Actin FS) Sodium 140 Potassium 3.5 Chloride 105 Carbon Dioxide 25 Anion Gap 10 BUN 4 L Creatinine 0.5 L Creat Clearance w eGFR > 60 Random Glucose 94 Calcium 8.3 L Ferritin Total Bilirubin 0.6 Direct Bilirubin AST 269 H ALT 457 H Alkaline Phosphatase 298 H Troponin I Cancelled < 0.02 C-Reactive Protein Total Protein 6.8 Albumin 3.3 L Total Amylase 31 Lipase 74 Hep C Ab Diagnostic Liver Fibrosis Interp 06/18/17 06/18/17 06/19/17 09:35 18:00 07:24 WBC RBC Hgb Hct MCV MCH MCHC RDW Plt Count MPV Neutrophils % Neutrophils % (Manual) Band Neutrophils % Lymphocytes % Lymphocytes % (Manual) Monocytes % Monocytes % (Manual) Eosinophils % Eosinophils % (Manual) Basophils % Basophils % (Manual) Myelocytes % (Man) Promyelocytes % (Man) Blast Cells % (Manual) Nucleated RBC % Metamyelocytes Platelet Estimate PTT (Actin FS) 52.2 H 58.6 H Sodium Potassium Chloride Carbon Dioxide Anion Gap BUN Creatinine Creat Clearance w eGFR Random Glucose Calcium Ferritin Total Bilirubin Direct Bilirubin AST ALT Alkaline Phosphatase Troponin I C-Reactive Protein Total Protein Albumin Total Amylase Lipase Hep C Ab Diagnostic <0.1 Liver Fibrosis Interp 06/19/17 06/19/17 06/19/17 07:24 07:24 07:24 WBC 9.0 RBC 4.33 Hgb 13.0 Hct 37.2 MCV 85.9 MCH 30.0 MCHC 34.9 RDW 13.8 Plt Count 183 MPV 8.5 Neutrophils % 37.0 L Neutrophils % (Manual) Band Neutrophils % Lymphocytes % 52.8 H Lymphocytes % (Manual) Monocytes % 9.3 Monocytes % (Manual) Eosinophils % 0.5 Eosinophils % (Manual) Basophils % 0.4 Basophils % (Manual) Myelocytes % (Man) Promyelocytes % (Man) Blast Cells % (Manual) Nucleated RBC % Metamyelocytes Platelet Estimate PTT (Actin FS) Sodium Potassium Chloride Carbon Dioxide Anion Gap BUN Creatinine Creat Clearance w eGFR Random Glucose Calcium Ferritin 474.841 H Total Bilirubin 0.5 Direct Bilirubin 0.3 H AST 228 H ALT 457 H Alkaline Phosphatase 303 H Troponin I C-Reactive Protein 1.8 H Total Protein 7.1 Albumin 3.1 L Total Amylase Lipase Hep C Ab Diagnostic Liver Fibrosis Interp Active Medications Generic Name Dose Route Start Last Admin Trade Name Freq PRN Reason Stop Dose Admin Heparin Sodium (Porcine) 1,000 unit 06/17/17 22:26 06/18/17 11:46 Heparin - IVPUSH 1,000 unit PRN PRN Administration Heparin Heparin Sodium (Porcine) 5,000 unit 06/17/17 22:26 Heparin - IVPUSH PRN PRN Heparin Heparin Sodium/Dextrose 25,000 units in 500 mls @ 20 mls/hr 06/17/17 22:30 11:46 Heparin Infusion - IVPB 1,100 units/hr TITR DAKSHA 22 mls/hr Protocol Titration 1,000 UNITS/HR Morphine Sulfate 1 mg 06/18/17 06:49 06/18/17 20:48 Morphine Sulfate IVPUSH 1 mg Q6H PRN Administration PAIN LEVEL 6-10 Nystatin 1 applic 06/18/17 10:00 06/18/17 09:46 Mycostatin Cream - TP Not Given DAILY [facility] Ondansetron HCl 4 mg 06/18/17 09:26 06/18/17 20:57 Zofran Injection IVPB 4 mg Q6H PRN Administration NAUSEA AND/OR VOMITING Polyethylene Glycol 17 gm 06/19/17 10:00 Miralax (For Daily Use) - PO DAILY [facility] ASSESSMENT/PLAN: 46 yr old woman with hx migraines, asthma presents with abdominal pain found to have splenic infarction #spleenic infarction, etiology unclear. multiple differentials including: SE of control, endocarditis s/p dental surgery for dental infection, EBV or other viral syndrome, coagulopathy - lab work-up pending to identify cause, per GI and hematology - TTE likely tomorrow to r/o vegetations, bld cx pending, - heparin drip as per protocol, goal PTT 50-60 - pain control; changed morphine to oxycodone 5mg q6hr - zofran 4mg ivpb q6hr prn #Transaminitis - given hypolucent area on CT a hepatic thrombosis is possible - continue to trend - avoid hepatotoxic medications - u/s without gallstones, no ductal dilation, hepatocellular disease with fatty liver #constipation - no bm in 2 days - miralax qd #asthma - continue flovent #Migraine - defer foirocet due to acetominophen for now, if it worsens will explore options for pain control with patient #dvt - on heparin drip #diet - regular Visit type - Emergency Visit Emergency Visit: No - New Patient This patient is new to me today: Yes Date on this admission: 06/19/17 - Critical Care Critical Care patient: No - Discharge Referral Referred to [facility] No <Tisha Veloz - Last Filed: 06/19/17 19:38> Physical Exam: Continue Current management. Continue IV heparin . Labs are pending for EBV, anticoagable w/u , GI and hematology on the case.
--- NOTE | 2017-06-19 10:12 | PN ---
Progress Note (short form) - Note Progress Note: HEMATOLOGY Progress Note: Patient seen and examined Her pain is better No complaints Vital Signs Period Temp Pulse Resp BP Sys/Gauthier Pulse Ox Last 24 Hr 97.7 F-99.3 F 82-97 19-22 124-142/60-74 98 AFVSS HEENT: [place], EOM Intact Skin: No rashes, Integument intact CBC, BMP 06/19/17 07:24 06/18/17 07:05 Current Medications Generic Name Dose Route Start Last Admin Trade Name Freq PRN Reason Stop Dose Admin Docusate Sodium 100 mg 06/19/17 10:00 Colace - PO DAILY DAK[facility] Heparin Sodium (Porcine) 1,000 unit 06/17/17 22:26 06/18/17 11:46 Heparin - IVPUSH 1,000 unit PRN PRN Administration Heparin Heparin Sodium (Porcine) 5,000 unit 06/17/17 22:26 Heparin - IVPUSH PRN PRN Heparin Heparin Sodium/Dextrose 25,000 units in 500 mls @ 20 mls/hr 06/17/17 22:30 11:46 Heparin Infusion - IVPB 1,100 units/hr TITR DAKSHA 22 mls/hr Protocol Titration 1,000 UNITS/HR Nystatin 1 applic 06/18/17 10:00 06/18/17 09:46 Mycostatin Cream - TP Not Given DAILY [facility] Ondansetron HCl 4 mg 06/18/17 09:26 06/18/17 20:57 Zofran Injection IVPB 4 mg Q6H PRN Administration NAUSEA AND/OR VOMITING Oxycodone HCl 5 mg 06/19/17 09:26 Roxicodone - PO Q6H PRN PAIN LEVEL 4 - 6 Polyethylene Glycol 17 gm 06/19/17 10:00 Miralax (For Daily Use) - PO DAILY [facility] Labs: reviewed A/P Patient is a 46 year old female presented to the ED with the chief complaint of LUQ pain due to a splenic infarct Acute Splenic infarction and transaminitis The ddx is broad - Hypercoagulable state, MPN- PV anyi., Infective endocarditis- recent dental infection, Pancreatitis, EBV infection -I am inclined to think that this in an infectious cause at this time due to the recent h/o of fevers followed by transaminitis and splenic infarction -Continue heparin drip per protocol -We will send VAIBHAV mutations on Tuesday to r/o PV -Blood cx* 2 to r/o infective endocarditis, TTE initially -We will send hypercoagulable once she is off heparin and if her other tests are negative -EBV, (?mononucleosis, recent h/o of dental infection on antibiotics followed by transmainitis and splenomegaly) -Parvo virus, CMV serology (agree with Hepatitis serology) -Amylase, Lipase - normal -An ID consult will be helpful if the primary team agrees -Continue pain control as per primary team
[2017-06-19] MEDS ORDERED: PT OWN MED DRAWER 7, Y5N ONE ×2 (10:21→23:13)
[2017-06-19] MEDS: DOCUSATE SODIUM 100 MG CAPSULE (FP) PO SCH (10:27)
[2017-06-19] MEDS: ONDANSETRON 4 MG/2 ML VIAL IVPB PRN (10:27)
[2017-06-19] MEDS: oxyCODONE HCL 5 MG TABLET PO PRN ×3 (10:28→23:09)
[2017-06-19] MEDS: POLYETHYLENE GLYCOL 3350 119 GM BTL PO SCH (10:31)
[2017-06-19] MEDS: NYSTATIN 100,000 UNIT/GM TOPICAL CREAM 15 GM TUBE TP SCH (10:32)
--- NOTE | 2017-06-19 11:05 | PN ---
GI Progress Note Subjective: GI Note ( covering Dr Cole) : Abdominal pain had subsided but recurred when she got out of bed. Tolerating feedings.LFTs minimally changed. CRP surprisingly low - Objective Vital Signs: Vital Signs Temperature 98.7 F 06/19/17 06:27 Pulse Rate 89 06/19/17 06:27 Respiratory Rate 20 06/19/17 06:27 Blood Pressure 142/73 06/19/17 06:27 O2 Sat by Pulse Oximetry (%) 98 06/18/17 21:00 Laboratory Tests 06/18/17 06/19/17 06/19/17 07:05 07:24 07:24 Ferritin 474.841 H Total Bilirubin 0.6 0.5 Direct Bilirubin 0.3 H AST 269 H 228 H ALT 457 H 457 H Alkaline Phosphatase 298 H 303 H C-Reactive Protein 1.8 H Albumin 3.1 L Total Amylase 31 Lipase 74 Constitutional: Anxious ...Auscultate: Yes: Normoactive Bowel Sounds ...Palpate: Yes: Soft, Tenderness (less tender today in LUQ) Labs: CBC, BMP 06/19/17 07:24 06/18/17 07:05 INR, PTT INR 1.12 (0.82-1.09) 06/17/17 23:39 Problem List - Problems (1) Splenic infarction Assessment/Plan: Pain due to splenic infarction. Possible liver thrombosis as well. Agree with need for TTE to exclude SBE but will start with echo. Code(s): D73.5 - INFARCTION OF SPLEEN (2) Renal calculi Code(s): N20.0 - CALCULUS OF KIDNEY (3) Asthma Code(s): J45.909 - UNSPECIFIED ASTHMA, UNCOMPLICATED (4) Constipation Code(s): K59.00 - CONSTIPATION, UNSPECIFIED (5) Left sided abdominal pain Code(s): R10.9 - UNSPECIFIED ABDOMINAL PAIN (6) Abnormal liver enzymes Assessment/Plan: HCV negative, others pending. Await sonogram for gallstones. Discussed possibility of BERMUDEZ and the need to adopt a Weight Watcher's type diet and exercise regimen Code(s): R74.8 - ABNORMAL LEVELS OF OTHER SERUM ENZYMES
[2017-06-19] MEDS: MOMETASONE FUROATE 220 MCG/IH INHALER IH SCH (23:21)
[2017-06-20] MEDS: HEPARIN INFUSION - 25,000 UNITS/500 ML INFUS.BAG IVPB SCH ×4 (02:16→23:16)
[2017-06-20] MEDS: oxyCODONE HCL 5 MG TABLET PO PRN ×3 (06:27→16:57)
[2017-06-20 08:15] LABS: BILIRUBIN,DIRECT 0.4 mg/dL (0.0-0.2); BILIRUBIN,TOTAL 0.6 mg/dL (0.2-1.0); TOT PROT 7.1 g/dl (6.4-8.2)
[2017-06-20] MEDS: POLYETHYLENE GLYCOL 3350 119 GM BTL PO SCH (09:24)
[2017-06-20] MEDS: DOCUSATE SODIUM 100 MG CAPSULE (FP) PO SCH (09:24)
[2017-06-20] MEDS ORDERED: PT OWN MED DRAWER 7, Y5N ONE (09:27)
[2017-06-20] MEDS: ONDANSETRON 4 MG/2 ML VIAL IVPB PRN ×2 (10:10→16:48)
--- NOTE | 2017-06-20 11:21 | PN ---
<Soren Wyatt - Last Filed: 06/20/17 15:28> Physical Exam: SUBJECTIVE: Patient seen and examined No acute events overnight. Patient continues to have pain. OBJECTIVE: Vital Signs Period Temp Pulse Resp BP Sys/Gauthier Pulse Ox Last 24 Hr 98.0 F-98.6 F 72-85 20-22 120-142/62-77 98 GENERAL: The patient is awake, alert, in no acute distress. HEAD: Normal with no signs of trauma. EYES: PERRL, extraocular movements intact, sclera anicteric, conjunctiva clear. No ptosis. ENT: oropharynx clear without exudates, moist mucous membranes. no thrush NECK: Trachea midline, full range of motion, supple. no lad, no thyromegaly LUNGS: Breath sounds equal, clear to auscultation bilaterally, no wheezes, no crackles, no accessory muscle use. HEART: Regular rate and rhythm, S1, S2 without murmur, rub or gallop. ABDOMEN: Soft, nontender, nondistended, normoactive bowel sounds, no guarding, no rebound, no masses. EXTREMITIES: 2+ dp and radial b/l pulses, warm, well-perfused, no edema. NEUROLOGICAL: Cranial nerves II through XII grossly intact. Normal speech. facial symmetry PSYCH: Normal mood, normal affect. SKIN: Warm, dry, normal turgor, no rashes or lesions noted Laboratory Results - last 24 hr 06/20/17 06/20/17 06:35 06:35 PTT (Actin FS) 53.4 H Total Bilirubin 0.6 Direct Bilirubin 0.4 H AST 272 H ALT 454 H Alkaline Phosphatase 295 H Total Protein 7.1 Albumin 3.0 L Active Medications Generic Name Dose Route Start Last Admin Trade Name Freq PRN Reason Stop Dose Admin Docusate Sodium 100 mg 06/19/17 10:00 06/20/17 09:24 Colace - PO 100 mg DAILY DAKSHA Administration Heparin Sodium (Porcine) 1,000 unit 06/17/17 22:26 06/18/17 11:46 Heparin - IVPUSH 1,000 unit PRN PRN Administration Heparin Heparin Sodium (Porcine) 5,000 unit 06/17/17 22:26 Heparin - IVPUSH PRN PRN Heparin Heparin Sodium/Dextrose 25,000 units in 500 mls @ 20 mls/hr 06/17/17 22:30 05:18 Heparin Infusion - IVPB 1,100 units/hr TITR DAKSHA 22 mls/hr Protocol Administration 1,000 UNITS/HR Mometasone Furoate 1 puff 06/19/17 22:00 06/19/17 23:21 Asmanex 220mcg - IH 1 puff HS DAKSHA Administration Nystatin 1 applic 06/18/17 10:00 06/19/17 10:32 Mycostatin Cream - TP 1 applic DAILY DAKSHA Administration Ondansetron HCl 4 mg 06/18/17 09:26 06/20/17 10:10 Zofran Injection IVPB 4 mg Q6H PRN Administration NAUSEA AND/OR VOMITING Oxycodone HCl 10 mg 06/20/17 11:06 06/20/17 11:18 Roxicodone - PO 10 mg Q4H PRN Administration PAIN LEVEL 4 - 6 Polyethylene Glycol 17 gm 06/19/17 10:00 06/20/17 09:24 Miralax (For Daily Use) - PO 17 gm DAILY DAKSHA Administration ASSESSMENT/PLAN: 46 yr old woman with hx migraines, asthma presents with abdominal pain 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 multiple differentials including: SE of control, endocarditis s/p dental surgery for dental infection, EBV or other viral syndrome, coagulopathy - TTE-- PASP 37 mmHg, no vegetations. LV normal. EF normal - heparin drip as per protocol, goal PTT 50-60 - pain control; changed morphine to oxycodone 10mg q4hr - zofran 4mg ivpb q6hr prn #Transaminitis - given hypolucent area on CT a hepatic thrombosis is possible - continue to trend - avoid hepatotoxic medications - u/s without gallstones, no ductal dilation, hepatocellular disease with fatty liver #constipation - miralax qd #asthma - continue flovent #Migraine - defer foirocet due to acetominophen for now, if it worsens will explore options for pain control with patient #dvt - on heparin drip #diet - regular Visit type - Emergency Visit Emergency Visit: Yes ED Registration Date: 06/17/17 Care time: The patient presented to the Emergency Department on the above date and was hospitalized for further evaluation of their emergent condition. - New Patient This patient is new to me today: Yes Date on this admission: 06/20/17 - Critical Care Critical Care patient: No <Tisha Veloz - Last Filed: 06/20/17 21:01> Physical Exam: Patient continues to have pain, will increase to 10mg po q6h Oxycodone prn. Vital Signs Temperature 99.4 F 06/20/17 16:15 Pulse Rate 82 06/20/17 16:15 Respiratory Rate 20 06/20/17 16:15 Blood Pressure 124/69 06/20/17 16:15 O2 Sat by Pulse Oximetry (%) 98 06/20/17 09:00 CBCD WBC 9.0 K/mm3 (4.0-10.0) 06/19/17 07:24 RBC 4.33 M/mm3 (3.60-5.2) 06/19/17 07:24 Hgb 13.0 GM/dL (10.7-15.3) 06/19/17 07:24 Hct 37.2 % (32.4-45.2) 06/19/17 07:24 MCV 85.9 fl (80-96) 06/19/17 07:24 MCHC 34.9 g/dl (32.0-36.0) 06/19/17 07:24 RDW 13.8 % (11.6-15.6) 06/19/17 07:24 Plt Count 183 K/MM3 (134-434) 06/19/17 07:24 MPV 8.5 fl (7.5-11.1) 06/19/17 07:24 CMP Sodium 140 mmol/L (136-145) 06/18/17 07:05 Potassium 3.5 mmol/L (3.5-5.1) 06/18/17 07:05 Chloride 105 mmol/L (98-107) 06/18/17 07:05 Carbon Dioxide 25 mmol/L (21-32) 06/18/17 07:05 Anion Gap 10 (8-16) 06/18/17 07:05 BUN 4 mg/dL (7-18) L 06/18/17 07:05 Creatinine 0.5 mg/dL (0.55-1.02) L 06/18/17 07:05 Creat Clearance w eGFR > 60 (>60) 06/18/17 07:05 Random Glucose 94 mg/dL (74-106) 06/18/17 07:05 Calcium 8.3 mg/dL (8.5-10.1) L 06/18/17 07:05 Total Bilirubin 0.6 mg/dL (0.2-1.0) 06/20/17 06:35 AST 272 U/L (15-37) H 06/20/17 06:35 ALT 454 U/L (12-78) H 06/20/17 06:35 Alkaline Phosphatase 295 U/L (45-117) H 06/20/17 06:35 Total Protein 7.1 g/dl (6.4-8.2) 06/20/17 06:35 Albumin 3.0 g/dl (3.4-5.0) L 06/20/17 06:35 CARDIAC ENZYMES Troponin I < 0.02 ng/ml (0.00-0.05) 06/18/17 07:05 Current Medications Generic Name Dose Route Start Last Admin Trade Name Freq PRN Reason Stop Dose Admin Docusate Sodium 100 mg 06/19/17 10:00 06/20/17 09:24 Colace - PO 100 mg DAILY DAKSHA Administration Heparin Sodium (Porcine) 1,000 unit 06/17/17 22:26 06/18/17 11:46 Heparin - IVPUSH 1,000 unit PRN PRN Administration Heparin Heparin Sodium (Porcine) 5,000 unit 06/17/17 22:26 Heparin - IVPUSH PRN PRN Heparin Heparin Sodium/Dextrose 25,000 units in 500 mls @ 20 mls/hr 06/17/17 22:30 05:18 Heparin Infusion - IVPB 1,100 units/hr TITR DAKSHA 22 mls/hr Protocol Administration 1,000 UNITS/HR Mometasone Furoate 1 puff 06/19/17 22:00 06/19/17 23:21 Asmanex 220mcg - IH 1 puff HS DAKSHA Administration Nystatin 1 applic 06/18/17 10:00 06/20/17 13:35 Mycostatin Cream - TP 1 applic DAILY DAKSHA Administration Ondansetron HCl 4 mg 06/18/17 09:26 06/20/17 16:48 Zofran Injection IVPB 4 mg Q6H PRN Administration NAUSEA AND/OR VOMITING Oxycodone HCl 10 mg 06/20/17 11:06 06/20/17 16:57 Roxicodone - PO 10 mg Q6H PRN Administration PAIN LEVEL 4 - 6 Polyethylene Glycol 17 gm 06/19/17 10:00 06/20/17 09:24 Miralax (For Daily Use) - PO 17 gm DAILY DAKSHA Administration Home Medications Medication Instructions Recorded Butalb/Acetaminophen/Caffeine 1 each PO DAILY 06/17/17 [Ujorar-Qiyvkkbp-Bvrg 50-325-40] Cholecalciferol (Vitamin D3) 1,000 unit PO DAILY 06/17/17 [Vitamin D3 -] Fluticasone Propionate [Flovent 250 mcg IH DAILY 06/17/17 Diskus] Hydroxyzine HCl 50 mg PO DAILY 06/17/17 Montelukast Na [Singulair -] 10 mg PO HS 06/17/17 Nystatin Cream [Mycostatin Cream -] 1 applic TP DAILY 06/17/17 Ranitidine [Zantac -] 150 mg PO BID 06/17/17 Trazodone HCl 50 mg PO DAILY 06/17/17 Norethindrone 0.35 mg PO DAILY 06/20/17
--- NOTE | 2017-06-20 12:24 | EKG ---
Test Reason : Blood Pressure : / mmHG Vent. Rate : 084 BPM Atrial Rate : 084 BPM P-R Int : 148 ms QRS Dur : 086 ms QT Int : 364 ms P-R-T Axes : 026 014 023 degrees QTc Int : 430 ms NORMAL SINUS RHYTHM NORMAL ECG WHEN COMPARED WITH ECG OF 17-JUN-2017 21:44, NO SIGNIFICANT CHANGE WAS FOUND Confirmed by JEAN CRUZ MD ([id number]) on 06/20/2017 12:24:39 PM Referred By: Dave ALEXANDER Confirmed By:JEAN CURZ MD
[2017-06-20] MEDS: NYSTATIN 100,000 UNIT/GM TOPICAL CREAM 15 GM TUBE TP SCH (13:35)
--- NOTE | 2017-06-20 18:38 | PN ---
Progress Note (short form) - Note Progress Note: Patient seen and examined c/o LUQ pain Last Vital Signs Temp Pulse Resp BP Pulse Ox 99.4 F 82 20 124/69 98 06/20/17 16:15 06/20/17 16:15 06/20/17 16:15 06/20/17 16:15 06/20/17 09:00 Cor: RSR, No murmurs, No gallops Lungs: Clear to P&A Abd: Soft, Normal bowel sounds, No organomegaly Ext:No significant edema Abnormal Lab Results 06/20/17 06/20/17 06:35 06:35 PTT (Actin FS) 53.4 H Direct Bilirubin 0.4 H AST 272 H ALT 454 H Alkaline Phosphatase 295 H Albumin 3.0 L Active Medications Generic Name Dose Route Start Last Admin Trade Name Freq PRN Reason Stop Dose Admin Docusate Sodium 100 mg 06/19/17 10:00 06/20/17 09:24 Colace - PO 100 mg DAILY DAKSHA Administration Heparin Sodium (Porcine) 1,000 unit 06/17/17 22:26 06/18/17 11:46 Heparin - IVPUSH 1,000 unit PRN PRN Administration Heparin Heparin Sodium (Porcine) 5,000 unit 06/17/17 22:26 Heparin - IVPUSH PRN PRN Heparin Heparin Sodium/Dextrose 25,000 units in 500 mls @ 20 mls/hr 06/17/17 22:30 05:18 Heparin Infusion - IVPB 1,100 units/hr TITR DAKSHA 22 mls/hr Protocol Administration 1,000 UNITS/HR Mometasone Furoate 1 puff 06/19/17 22:00 06/19/17 23:21 Asmanex 220mcg - IH 1 puff HS DAKSHA Administration Nystatin 1 applic 06/18/17 10:00 06/20/17 13:35 Mycostatin Cream - TP 1 applic DAILY DAKSHA Administration Ondansetron HCl 4 mg 06/18/17 09:26 06/20/17 16:48 Zofran Injection IVPB 4 mg Q6H PRN Administration NAUSEA AND/OR VOMITING Oxycodone HCl 10 mg 06/20/17 11:06 06/20/17 16:57 Roxicodone - PO 10 mg Q4H PRN Administration PAIN LEVEL 4 - 6 Polyethylene Glycol 17 gm 06/19/17 10:00 06/20/17 09:24 Miralax (For Daily Use) - PO 17 gm DAILY DAKSHA Administration A/P 46 y/o patient with h/o tooth infection 2 weeks ago, comes in with LUQ abdominal pain, splenic infarct, abnotmal LFTs, lymphocytosis will check thrombophilia w/u, MPD w/u. Flow, JAK2, PNH w/u, DARLEEN,RF Check protein studies, ESR, CRP cultures neg. --chck ID consult abnl LFTs? fatty liver. checking duplex Agree with heparin --bridge to coumadin?
[2017-06-20] MEDS: MOMETASONE FUROATE 220 MCG/IH INHALER IH SCH (23:17)
[2017-06-21 00:14] LABS: HBSAG SCREEN Negative (Negative); HEP A AB, IGM Negative (Negative); HEP B CORE AB, TOT Negative (Negative)
[2017-06-21] MEDS: oxyCODONE HCL 5 MG TABLET PO PRN ×2 (03:23→17:55)
[2017-06-21] MEDS: ONDANSETRON 4 MG/2 ML VIAL IVPB PRN ×2 (03:24→10:52)
[2017-06-21 07:50] LABS: HEMATOCRIT 36.7 % (32.4-45.2); HEMOGLOBIN 12.7 GM/dL (10.7-15.3); MCH 29.8 pg (25.7-33.7); MCHC 34.7 g/dl (32.0-36.0); MEAN PLT VOLUME 8.8 fl (7.5-11.1); PLATELET COUNT 194 K/MM3 (134-434); RBC 4.27 M/mm3 (3.60-5.2); RDW 13.8 % (11.6-15.6); WHITE BLOOD COUNT 9.7 K/mm3 (4.0-10.0)
[2017-06-21] MEDS ORDERED: PT OWN MED DRAWER 7, Y5N ONE (07:59)
[2017-06-21 08:54] LABS: ALBUMIN 3.1 g/dl (3.4-5.0); ANION GAP 9 (8-16); BILIRUBIN,DIRECT 0.3 mg/dL (0.0-0.2); CALCIUM 8.6 mg/dL (8.5-10.1); CHLORIDE 101 mmol/L (98-107); CO2 28 mmol/L (21-32); CREATININE 0.6 mg/dL (0.55-1.02); GLUCOSE,RANDOM 88 mg/dL (74-106); POTASSIUM 3.5 mmol/L (3.5-5.1); SGOT/AST 229 U/L (15-37); SODIUM 138 mmol/L (136-145)
[2017-06-21 08:56] LABS: ALK PHOS 294 U/L (45-117); BILIRUBIN,TOTAL 0.6 mg/dL (0.2-1.0); BLOOD UREA NITROGEN 5 mg/dL (7-18); TOT PROT 7.3 g/dl (6.4-8.2)
--- NOTE | 2017-06-21 09:02 | PN ---
Teaching Attending Note Name of Resident: Soren Wyatt ATTENDING PHYSICIAN STATEMENT I saw and evaluated the patient. I reviewed the resident's note and discussed the case with the resident. I agree with the resident's findings and plan as documented. SUBJECTIVE: Patient continues to have LUQ pain, otherwise no acute distress. OBJECTIVE: Vital Signs Temperature 99.3 F 06/21/17 06:00 Pulse Rate 90 06/21/17 06:00 Respiratory Rate 20 06/21/17 06:00 Blood Pressure 128/54 06/21/17 06:00 O2 Sat by Pulse Oximetry (%) 98 06/20/17 21:00 GENERAL: The patient is awake, alert, in no acute distress. HEAD: Normal with no signs of trauma. EYES: PERRL, extraocular movements intact, sclera anicteric, conjunctiva clear. ENT: oropharynx clear without exudates, moist mucous membranes. no thrush NECK: Trachea midline, full range of motion, supple. no lad, no thyromegaly LUNGS: Breath sounds equal, clear to auscultation bilaterally, no wheezes, no crackles, no accessory muscle use. HEART: Regular rate and rhythm, S1, S2 positive without murmur, rub or gallop. ABDOMEN: Soft, mild tenderness on palpation LUQ , nondistended, normoactive bowel sounds, no guarding, no rebound, no masses. EXTREMITIES: pulses are positive , warm, well-perfused, no edema. NEUROLOGICAL: Cranial nerves II through XII grossly intact. Normal speech. PSYCH: Normal mood, normal affect. SKIN: Warm, dry, normal turgor, no rashes or lesions noted CBCD WBC 9.7 K/mm3 (4.0-10.0) 06/21/17 06:15 RBC 4.27 M/mm3 (3.60-5.2) 06/21/17 06:15 Hgb 12.7 GM/dL (10.7-15.3) 06/21/17 06:15 Hct 36.7 % (32.4-45.2) 06/21/17 06:15 MCV 86.0 fl (80-96) 06/21/17 06:15 MCHC 34.7 g/dl (32.0-36.0) 06/21/17 06:15 RDW 13.8 % (11.6-15.6) 05/01/18 06:15 Plt Count 194 K/MM3 (134-434) 06/21/17 06:15 MPV 8.8 fl (7.5-11.1) 06/21/17 06:15 CMP Sodium 140 mmol/L (136-145) 06/18/17 07:05 Potassium 3.5 mmol/L (3.5-5.1) 06/18/17 07:05 Chloride 105 mmol/L (98-107) 06/18/17 07:05 Carbon Dioxide 25 mmol/L (21-32) 06/18/17 07:05 Anion Gap 10 (8-16) 06/18/17 07:05 BUN 4 mg/dL (7-18) L 06/18/17 07:05 Creatinine 0.5 mg/dL (0.55-1.02) L 06/18/17 07:05 Creat Clearance w eGFR > 60 (>60) 06/18/17 07:05 Random Glucose 94 mg/dL (74-106) 06/18/17 07:05 Calcium 8.3 mg/dL (8.5-10.1) L 06/18/17 07:05 Total Bilirubin 0.6 mg/dL (0.2-1.0) 06/20/17 06:35 AST 272 U/L (15-37) H 06/20/17 06:35 ALT 454 U/L (12-78) H 06/20/17 06:35 Alkaline Phosphatase 295 U/L (45-117) H 06/20/17 06:35 Total Protein 7.1 g/dl (6.4-8.2) 06/20/17 06:35 Albumin 3.0 g/dl (3.4-5.0) L 06/20/17 06:35 CARDIAC ENZYMES Troponin I < 0.02 ng/ml (0.00-0.05) 06/18/17 07:05 Current Medications Generic Name Dose Route Start Last Admin Trade Name Freq PRN Reason Stop Dose Admin Docusate Sodium 100 mg 06/19/17 10:00 06/20/17 09:24 Colace - PO 100 mg DAILY DAKSHA Administration Heparin Sodium (Porcine) 1,000 unit 06/17/17 22:26 06/18/17 11:46 Heparin - IVPUSH 1,000 unit PRN PRN Administration Heparin Heparin Sodium (Porcine) 5,000 unit 06/17/17 22:26 Heparin - IVPUSH PRN PRN Heparin Heparin Sodium/Dextrose 25,000 units in 500 mls @ 20 mls/hr 06/17/17 22:30 23:16 Heparin Infusion - IVPB Not Given TITR [facility] Protocol 1,000 UNITS/HR Mometasone Furoate 1 puff 06/19/17 22:00 06/20/17 23:17 Asmanex 220mcg - IH Not Given HS [facility] Nystatin 1 applic 06/18/17 10:00 06/20/17 13:35 Mycostatin Cream - TP 1 applic DAILY [facility] Administration Ondansetron HCl 4 mg 06/18/17 09:26 06/21/17 03:24 Zofran Injection IVPB 4 mg Q6H PRN Administration NAUSEA AND/OR VOMITING Oxycodone HCl 10 mg 06/20/17 21:00 06/21/17 03:23 Roxicodone - PO 10 mg Q6H PRN Administration PAIN LEVEL 4 - 6 Polyethylene Glycol 17 gm 06/19/17 10:00 06/20/17 09:24 Miralax (For Daily Use) - PO 17 gm DAILY [facility] Administration Home Medications Medication Instructions Recorded Butalb/Acetaminophen/Caffeine 1 each PO DAILY 06/17/17 [Oqttaf-Tadszkpl-Ksku 50-325-40] Cholecalciferol (Vitamin D3) 1,000 unit PO DAILY 06/17/17 [Vitamin D3 -] Fluticasone Propionate [Flovent 250 mcg IH DAILY 06/17/17 Diskus] Hydroxyzine HCl 50 mg PO DAILY 06/17/17 Montelukast Na [Singulair -] 10 mg PO HS 06/17/17 Nystatin Cream [Mycostatin Cream -] 1 applic TP DAILY 06/17/17 Ranitidine [Zantac -] 150 mg PO BID 06/17/17 Trazodone HCl 50 mg PO DAILY 06/17/17 Norethindrone 0.35 mg PO DAILY 06/20/17 Microbiology Laboratory Tests 06/18/17 06/18/17 06/19/17 07:05 09:35 07:24 CLARISSA & SPEP Interp Total Protein (CLARISSA) Albumin (CLARISSA) Albumin/Globulin (CLARISSA) Uyqqg-7-Dbygftfkb CLARISSA Dwgwz-4-Huuupnjqb CLARISSA Gamma Globulins (CLARISSA) CLARISSA M-Micheal IEP IgG IEP IgA IEP IgM Rheumatoid Factor DARLEEN Screen Iuic-5-Wdmrlswssqax Ab Beta-2-GPI IgM Ab Smooth Musc &CERTIFIED PATHOLOGY ASSISTANT Intrp Anti-Cardiolipin IgG Ab Anti-Cardiolipin IgA Ab Free [place] LC, Quant Free Lambda LC, Quant Free [place]/Lambda Ratio CMV IgM Ab Pending CMV DNA Qual PCR Pending EBV Nuclear Antigen Pending Hep A IgM Ab Confirm Negative Hepatitis A Ab Total Positive H Hep Bs Antigen Negative Hep Bs Antibody Reactive Hep B Core Total Ab Negative Hep C Ab Diagnostic <0.1 Parvovirus B19 IgG Ab Pending Parvovirus B19 IgM Ab Pending Prothrombin [id number] Mut Factor II DNA Comment 06/19/17 06/21/17 06/21/17 07:24 06:15 06:15 CLARISSA & SPEP Interp Total Protein (CLARISSA) Albumin (CLARISSA) Albumin/Globulin (CLARISSA) Coini-2-Ycezkayiy CLARISSA Mzdxi-2-Lkrgvoejl CLARISSA Gamma Globulins (CLARISSA) CLARISSA M-Micheal IEP IgG IEP IgA IEP IgM Rheumatoid Factor 22.3 H DARLEEN Screen Negative Tbcw-7-Yvdeliuqavme Ab Beta-2-GPI IgM Ab Smooth Musc &CERTIFIED PATHOLOGY ASSISTANT Intrp 17 Anti-Cardiolipin IgG Ab Anti-Cardiolipin IgA Ab Free [place] LC, Quant Pending Free Lambda LC, Quant Pending Free [place]/Lambda Ratio Pending CMV IgM Ab CMV DNA Qual PCR EBV Nuclear Antigen Hep A IgM Ab Confirm Hepatitis A Ab Total Hep Bs Antigen Hep Bs Antibody Hep B Core Total Ab Hep C Ab Diagnostic Parvovirus B19 IgG Ab Parvovirus B19 IgM Ab Prothrombin [id number] Mut Factor II DNA Comment 06/21/17 06/21/17 06:15 09:05 CLARISSA & SPEP Interp Pending Total Protein (CLARISSA) Pending Albumin (CLARISSA) Pending Albumin/Globulin (CLARISSA) Pending Psgxv-4-Vpdlsiujn CLARISSA Pending Sodze-0-Xvhwppbsd CLARISSA Pending Gamma Globulins (CLARISSA) Pending CLARISSA M-Micheal Pending IEP IgG Pending IEP IgA Pending IEP IgM Pending Rheumatoid Factor DARLEEN Screen Korw-8-Gnhuqompkevf Ab Pending Beta-2-GPI IgM Ab Pending Smooth Musc &CERTIFIED PATHOLOGY ASSISTANT Intrp Anti-Cardiolipin IgG Ab Pending Anti-Cardiolipin IgA Ab Pending Free [place] LC, Quant Free Lambda LC, Quant Free [place]/Lambda Ratio CMV IgM Ab CMV DNA Qual PCR EBV Nuclear Antigen Hep A IgM Ab Confirm Hepatitis A Ab Total Hep Bs Antigen Hep Bs Antibody Hep B Core Total Ab Hep C Ab Diagnostic Parvovirus B19 IgG Ab Parvovirus B19 IgM Ab Prothrombin [id number] Mut Pending Factor II DNA Comment Pending 06/18/17 17:55 Blood - Peripheral Venous Blood Culture - Preliminary NO GROWTH OBTAINED AFTER 48 HOURS, INCUBATION TO CONTINUE FOR 3 DAYS. 06/18/17 17:55 Blood - Peripheral Venous Blood Culture - Preliminary NO GROWTH OBTAINED AFTER 48 HOURS, INCUBATION TO CONTINUE FOR 3 DAYS. 06/17/17 16:13 Urine - Urine Clean Catch Urine Culture - Final NO GROWTH OBTAINED CT of abdomen: 1cm left hepatic lobe hypodense foci presenting a cyst ASSESSMENT AND PLAN: 46 yr old woman with hx migraines, asthma presents with abdominal pain found to have splenic infarction # Acute splenic infarction, etiology unclear Possible due to EBV/Infectios [place] , with use of antibiotic anyi B LACTAMS. Possible SE of control, possible endocarditis s/p dental surgery for dental infection : echo was negative for vegetations. LV normal. EF normal, If high suspesion of endocarditis suspected we will need ADRIEN ; coagulopathy continue heparin drip as per protocol, goal PTT 50-60, pain control; changed morphine to oxycodone 10mg q4hr, zofran 4mg ivpb q6hr prn #Transaminitis - given hypoense area on CT a hepatic thrombosis is possible, will monitor, will continue to monitor US: positive for fatty Liver, avoid hepatotoxic agents. #constipation on miralax qd continue #asthma continue flovent #Migraine - defer Fioricet due to acetaminophen for now #dvt - on heparin drip #diet - regular Laboratory Tests 06/17/17 06/18/17 06/18/17 16:13 07:05 09:35 Direct Bilirubin AST ALT Alkaline Phosphatase Urine Total Protein Urine PEP Interpret Urine HCG, Qual Negative CSF IgG Interpretation CLARISSA & SPEP Interp Total Protein (CLARISSA) Albumin (CLARISSA) Albumin/Globulin (CLARISSA) Dntgm-2-Smqewvyvk CLARISSA Aakwr-7-Ivjgyczoy CLARISSA Gamma Globulins (CLARISSA) CLARISSA M-Micheal IEP IgG IEP IgA IEP IgM Rheumatoid Factor DARLEEN Screen Lmcm-2-Ogkdljixinyd Ab Beta-2-GPI IgM Ab Smooth Musc &CERTIFIED PATHOLOGY ASSISTANT Intrp Anti-Cardiolipin IgG Ab Anti-Cardiolipin IgA Ab Anti-Cardiolipin IgM Ab Free [place] LC, Quant Free Lambda LC, Quant Free [place]/Lambda Ratio CMV IgM Ab CMV DNA Qual PCR EBV Nuclear Antigen Hep A IgM Ab Confirm Negative Hepatitis A Ab Total Positive H Hep Bs Antigen Negative Hep Bs Antibody Reactive Hep B Core Total Ab Negative Hep C Ab Diagnostic <0.1 Parvovirus B19 IgG Ab Parvovirus B19 IgM Ab Prothrombin [id number] Mut Factor II DNA Comment 06/19/17 06/19/17 06/21/17 07:24 07:24 06:15 Direct Bilirubin 0.3 H AST 229 H ALT 459 H Alkaline Phosphatase 294 H Urine Total Protein Urine PEP Interpret Urine HCG, Qual CSF IgG Interpretation Pending CLARISSA & SPEP Interp Total Protein (CLARISSA) Albumin (CLARISSA) Albumin/Globulin (CLARISSA) Sapco-3-Zjrbysqoj CLARISSA Nrdca-7-Zqjijksrv CLARISSA Gamma Globulins (CLARISSA) CLARISSA M-Micheal IEP IgG IEP IgA IEP IgM Rheumatoid Factor DARLEEN Screen Negative Polu-1-Owsgdzqsozqd Ab Beta-2-GPI IgM Ab Smooth Musc &CERTIFIED PATHOLOGY ASSISTANT Intrp 17 Anti-Cardiolipin IgG Ab Anti-Cardiolipin IgA Ab Anti-Cardiolipin IgM Ab Free [place] LC, Quant Free Lambda LC, Quant Free [place]/Lambda Ratio CMV IgM Ab Pending CMV DNA Qual PCR Pending EBV Nuclear Antigen >600 Hep A IgM Ab Confirm Hepatitis A Ab Total Hep Bs Antigen Hep Bs Antibody Hep B Core Total Ab Hep C Ab Diagnostic Parvovirus B19 IgG Ab Pending Parvovirus B19 IgM Ab Pending Prothrombin [id number] Mut Factor II DNA Comment 06/21/17 06/21/17 06/21/17 06:15 06:15 06:15 Direct Bilirubin AST ALT Alkaline Phosphatase Urine Total Protein Pending Urine PEP Interpret Pending Urine HCG, Qual CSF IgG Interpretation CLARISSA & SPEP Interp Pending Total Protein (CLARISSA) Pending Albumin (CLARISSA) Pending Albumin/Globulin (CLARISSA) Pending Zwods-1-Ehpepuwle CLARISSA Pending Hkimw-1-Iyzobfgad CLARISSA Pending Gamma Globulins (CLARISSA) Pending CLARISSA M-Micheal Pending IEP IgG Pending IEP IgA Pending IEP IgM Pending Rheumatoid Factor 22.3 H DARLEEN Screen Pgyu-3-Uphkzfvcteqb Ab Beta-2-GPI IgM Ab Smooth Musc &CERTIFIED PATHOLOGY ASSISTANT Intrp Anti-Cardiolipin IgG Ab Anti-Cardiolipin IgA Ab Anti-Cardiolipin IgM Ab Free [place] LC, Quant Pending Free Lambda LC, Quant Pending Free [place]/Lambda Ratio Pending CMV IgM Ab CMV DNA Qual PCR EBV Nuclear Antigen Hep A IgM Ab Confirm Hepatitis A Ab Total Hep Bs Antigen Hep Bs Antibody Hep B Core Total Ab Hep C Ab Diagnostic Parvovirus B19 IgG Ab Parvovirus B19 IgM Ab Prothrombin [id number] Mut Factor II DNA Comment 06/21/17 09:05 Direct Bilirubin AST ALT Alkaline Phosphatase Urine Total Protein Urine PEP Interpret Urine HCG, Qual CSF IgG Interpretation CLARISSA & SPEP Interp Total Protein (CLARISSA) Albumin (CLARISSA) Albumin/Globulin (CLARISSA) Fchvh-2-Fbsljevqn CLARISSA Vzvgg-8-Cfllutoqe CLARISSA Gamma Globulins (CLARISSA) CLARISSA M-Micheal IEP IgG IEP IgA IEP IgM Rheumatoid Factor DARLEEN Screen Fyxl-0-Ebzkkwxrvrte Ab Pending Beta-2-GPI IgM Ab Pending Smooth Musc &CERTIFIED PATHOLOGY ASSISTANT Intrp Anti-Cardiolipin IgG Ab Pending Anti-Cardiolipin IgA Ab Pending Anti-Cardiolipin IgM Ab Pending Free [place] LC, Quant Free Lambda LC, Quant Free [place]/Lambda Ratio CMV IgM Ab CMV DNA Qual PCR EBV Nuclear Antigen Hep A IgM Ab Confirm Hepatitis A Ab Total Hep Bs Antigen Hep Bs Antibody Hep B Core Total Ab Hep C Ab Diagnostic Parvovirus B19 IgG Ab Parvovirus B19 IgM Ab Prothrombin [id number] Mut Pending Factor II DNA Comment Pending
[2017-06-21 09:16] LABS: PLATELET ESTIMATE NORMAL; SGPT/ALT 459 U/L (12-78)
[2017-06-21] MEDS: DOCUSATE SODIUM 100 MG CAPSULE (FP) PO SCH (09:44)
[2017-06-21] MEDS: POLYETHYLENE GLYCOL 3350 119 GM BTL PO SCH (09:45)
[2017-06-21] MEDS: NYSTATIN 100,000 UNIT/GM TOPICAL CREAM 15 GM TUBE TP SCH (09:45)
--- NOTE | 2017-06-21 10:21 | PN ---
Physical Exam: SUBJECTIVE: Patient seen and examined No acute events overnight. Patient continues to have abdominal pain. OBJECTIVE: Vital Signs Period Temp Pulse Resp BP Sys/Gauthier Pulse Ox Last 24 Hr 98.6 F-99.4 F 82-97 20-20 120-128/54-71 98 GENERAL: The patient is awake, alert, in no acute distress. HEAD: Normal with no signs of trauma. EYES: PERRL, extraocular movements intact, sclera anicteric, conjunctiva clear. No ptosis. ENT: oropharynx clear without exudates, moist mucous membranes. no thrush NECK: Trachea midline, full range of motion, supple. no lad, no thyromegaly LUNGS: Breath sounds equal, clear to auscultation bilaterally, no wheezes, no crackles, no accessory muscle use. HEART: Regular rate and rhythm, S1, S2 without murmur, rub or gallop. ABDOMEN: Soft, mild suprapubic/epigastric tenderness, nondistended, normoactive bowel sounds, no guarding, no rebound, no masses. EXTREMITIES: 2+ dp and radial b/l pulses, warm, well-perfused, no edema. NEUROLOGICAL: Cranial nerves II through XII grossly intact. Normal speech. facial symmetry PSYCH: Normal mood, normal affect. SKIN: Warm, dry, normal turgor, no rashes or lesions noted Laboratory Results - last 24 hr 06/18/17 06/19/17 06/21/17 07:05 07:24 06:15 WBC RBC Hgb Hct MCV MCH MCHC RDW Plt Count MPV Neutrophils % Neutrophils % (Manual) Band Neutrophils % Lymphocytes % Lymphocytes % (Manual) Monocytes % (Manual) Eosinophils % (Manual) Basophils % (Manual) Myelocytes % (Man) Promyelocytes % (Man) Blast Cells % (Manual) Nucleated RBC % Metamyelocytes Platelet Estimate ESR PTT (Actin FS) 51.8 H Sodium Potassium Chloride Carbon Dioxide Anion Gap BUN Creatinine Random Glucose Calcium Total Bilirubin Direct Bilirubin AST ALT Alkaline Phosphatase Total Protein Albumin Rheumatoid Factor DARLEEN Screen Negative Smooth Musc &[employer]CH[employer] Intrp 17 Hep A IgM Ab Confirm Negative Hepatitis A Ab Total Positive H Hep Bs Antigen Negative Hep Bs Antibody Reactive Hep B Core Total Ab Negative 06/21/17 06/21/17 06/21/17 06:15 06:15 06:15 WBC 9.7 RBC 4.27 Hgb 12.7 Hct 36.7 MCV 86.0 MCH 29.8 MCHC 34.7 RDW 13.8 Plt Count 194 MPV 8.8 Neutrophils % No Result Required. Neutrophils % (Manual) 32.0 L D Band Neutrophils % 0.0 Lymphocytes % No Result Required. Lymphocytes % (Manual) 40.0 Monocytes % (Manual) 4 Eosinophils % (Manual) 1.0 Basophils % (Manual) 1.0 D Myelocytes % (Man) 0 Promyelocytes % (Man) 0 Blast Cells % (Manual) 0 Nucleated RBC % 1 H Metamyelocytes 0 Platelet Estimate Normal ESR PTT (Actin FS) Sodium 138 Potassium 3.5 Chloride 101 Carbon Dioxide 28 Anion Gap 9 BUN 5 L Creatinine 0.6 Random Glucose 88 Calcium 8.6 Total Bilirubin 0.6 Direct Bilirubin 0.3 H AST 229 H ALT 459 H Alkaline Phosphatase 294 H Total Protein 7.3 Albumin 3.1 L Rheumatoid Factor 22.3 H DARLEEN Screen Smooth Musc &[employer] Intrp Hep A IgM Ab Confirm Hepatitis A Ab Total Hep Bs Antigen Hep Bs Antibody Hep B Core Total Ab 06/21/17 06:15 WBC RBC Hgb Hct MCV MCH MCHC RDW Plt Count MPV Neutrophils % Neutrophils % (Manual) Band Neutrophils % Lymphocytes % Lymphocytes % (Manual) Monocytes % (Manual) Eosinophils % (Manual) Basophils % (Manual) Myelocytes % (Man) Promyelocytes % (Man) Blast Cells % (Manual) Nucleated RBC % Metamyelocytes Platelet Estimate ESR 33 H PTT (Actin FS) Sodium Potassium Chloride Carbon Dioxide Anion Gap BUN Creatinine Random Glucose Calcium Total Bilirubin Direct Bilirubin AST ALT Alkaline Phosphatase Total Protein Albumin Rheumatoid Factor DARLEEN Screen Smooth Musc &[employer] Intrp Hep A IgM Ab Confirm Hepatitis A Ab Total Hep Bs Antigen Hep Bs Antibody Hep B Core Total Ab Active Medications Generic Name Dose Route Start Last Admin Trade Name Freq PRN Reason Stop Dose Admin Docusate Sodium 100 mg 06/19/17 10:00 06/21/17 09:44 Colace - PO 100 mg DAILY DAKSHA Administration Heparin Sodium (Porcine) 1,000 unit 06/17/17 22:26 06/18/17 11:46 Heparin - IVPUSH 1,000 unit PRN PRN Administration Heparin Heparin Sodium (Porcine) 5,000 unit 06/17/17 22:26 Heparin - IVPUSH PRN PRN Heparin Heparin Sodium/Dextrose 25,000 units in 500 mls @ 20 mls/hr 06/17/17 22:30 23:16 Heparin Infusion - IVPB Not Given TITR DAKSHA Protocol 1,000 UNITS/HR Mometasone Furoate 1 puff 06/19/17 22:00 06/20/17 23:17 Asmanex 220mcg - IH Not Given HS DAKSHA Nystatin 1 applic 06/18/17 10:00 06/21/17 09:45 Mycostatin Cream - TP 1 applic DAILY DAKSHA Administration Ondansetron HCl 4 mg 06/18/17 09:26 06/21/17 03:24 Zofran Injection IVPB 4 mg Q6H PRN Administration NAUSEA AND/OR VOMITING Oxycodone HCl 10 mg 06/20/17 21:00 06/21/17 03:23 Roxicodone - PO 10 mg Q6H PRN Administration PAIN LEVEL 4 - 6 Polyethylene Glycol 17 gm 06/19/17 10:00 06/21/17 09:45 Miralax (For Daily Use) - PO 17 gm DAILY DAKSHA Administration ASSESSMENT/PLAN: 46 yr old woman with hx migraines, asthma presents with abdominal pain 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 multiple differentials including: SE of control, endocarditis s/p dental surgery for dental infection, EBV or other viral syndrome, coagulopathy - TTE-- PASP 37 mmHg, no vegetations. LV normal. EF normal - heparin drip as per protocol, goal PTT 50-60 - pain control; continue oxycodone 10mg q4hr - zofran 4mg ivpb q6hr prn -cardio consulted for ADRIEN, cardiac causes = #Transaminitis - given hypolucent area on CT a hepatic thrombosis is possible - continue to trend - avoid hepatotoxic medications - u/s without gallstones, no ductal dilation, hepatocellular disease with fatty liver #constipation - miralax qd #asthma - continue flovent #Migraine - defer foirocet due to acetominophen for now, if it worsens will explore options for pain control with patient #dvt - on heparin drip #diet - regular Visit type - Emergency Visit Emergency Visit: Yes ED Registration Date: 06/17/17 Care time: The patient presented to the Emergency Department on the above date and was hospitalized for further evaluation of their emergent condition. - New Patient This patient is new to me today: No - Critical Care Critical Care patient: No
--- NOTE | 2017-06-21 12:17 | PN ---
Progress Note (short form) - Note Progress Note: ID Consult dictated 46 y/o female admitted with splenic infarct after recent dental infection. Low index of suspicion for septic emboli secondary to infectious endocarditis. Will repeat BC, ESR, CRP. Observe off antibiotics. HIV testing (pt consents)
--- NOTE | 2017-06-21 13:20 | CONS ---
INFECTIOUS DISEASE CONSULTATION DATE OF CONSULTATION: DATE OF DICTATION: 06/21/2017 Patient is a 46-year-old female who is evaluated for possible septic emboli. She was admitted to the hospital on June 17, 2017, with left paraumbilical pain and fever. She was found on CAT scan to have a splenic infarct. Her course was complicated by continued abdominal pain and elevated liver enzymes. A workup for hypercoagulable state is in progress. Of note, the patient had a dental infection approximately 1 week prior to onset of symptoms. She reports seeing a dentist and was advised to have a tooth extraction because the tooth was infected. She was given a course of amoxicillin which she took. She reports resolution of the dental pain. Patient did complain of fever prior to admission. However, she has been afebrile in the hospital. At the present time, she is awake and alert. She has no complaints of fever or shaking chills. No sore throat, neck pain, cervical lymphadenopathy, and no complaints of chest pain, shortness of breath, cough, sputum production, vomiting, or diarrhea. PAST MEDICAL HISTORY: Positive for asthma. ALLERGIES: No known allergies. SOCIAL HISTORY: She lives at home. She is not presently working. She denies any ill contacts. No contacts with small children. She denies HIV risk factors, states she tested HIV negative 3 months ago. Denies tobacco, alcohol, or illicit drug use. No recent travel. She was born in [place] and has been a long-time resident. LABORATORY DATA: White count 9.7; hematocrit 36.7; platelet count 194; neutrophils 32, lymphocytes 40, monocytes 4. ESR 33. C-reactive protein 1.8. Creatinine 0.6. Blood cultures negative. Echocardiogram negative for valvular vegetations. PHYSICAL EXAMINATION: General: She is awake, in no acute distress, supine in bed. Vital Signs: Temperature 99.4; blood pressure 124/71; pulse 90, regular; respirations 20 per minute. HEENT: Sclerae are anicteric. Oropharynx: No injection or exudate. No gingival inflammation. Neck: Supple. No palpable adenopathy. Heart: Sounds S1, S2. No murmur. Lungs: Clear. Abdomen: Soft. There is left paraumbilical tenderness to palpation. No mass, rebound, or rigidity. Extremities: Negative for edema. Skin: No rash. IMPRESSION: A 46-year-old female admitted with splenic infarct and elevated liver enzymes after recent dental infection. A low index of suspicion for septic emboli secondary to infectious endocarditis. We will repeat blood cultures, sedimentation rate, and C-reactive protein. Observe off antibiotic therapy. HIV testing (patient consents). Continue hypercoagulable workup. Will follow. Thank you for the kind referral. JOSE ALMODOVAR M.D. [id number]
--- NOTE | 2017-06-21 14:11 | PN ---
Progress Note (short form) - Note Progress Note: pt seen and examined chart reviewed pain persistent. EBV nuclear antigen positive. Cor: RSR, No murmurs, No gallops Lungs: Clear to P&A Abd: Soft, Normal bowel sounds, No organomegaly Ext:No significant edema Temp Pulse Resp BP Pulse Ox 99.4 F 90 20 124/71 98 06/21/17 10:00 06/21/17 10:00 06/21/17 10:00 06/21/17 10:00 06/21/17 09:00 CBC, BMP 06/21/17 06:15 06/21/17 06:15 Current Medications Generic Name Dose Route Start Last Admin Trade Name Freq PRN Reason Stop Dose Admin Docusate Sodium 100 mg 06/19/17 10:00 06/21/17 09:44 Colace - PO 100 mg DAILY DAKSHA Administration Heparin Sodium (Porcine) 1,000 unit 06/17/17 22:26 06/18/17 11:46 Heparin - IVPUSH 1,000 unit PRN PRN Administration Heparin Heparin Sodium (Porcine) 5,000 unit 06/17/17 22:26 Heparin - IVPUSH PRN PRN Heparin Heparin Sodium/Dextrose 25,000 units in 500 mls @ 20 mls/hr 06/17/17 22:30 23:16 Heparin Infusion - IVPB Not Given TITR [facility] Protocol 1,000 UNITS/HR Sodium Chloride 1,000 mls @ 125 mls/hr 06/21/17 12:15 1/2 Normal Saline IV ASDIR DAKSHA Mometasone Furoate 1 puff 06/19/17 22:00 06/20/17 23:17 Asmanex 220mcg - IH Not Given HS [facility] Nystatin 1 applic 06/18/17 10:00 06/21/17 09:45 Mycostatin Cream - TP 1 applic DAILY DAKSHA Administration Ondansetron HCl 4 mg 06/18/17 09:26 06/21/17 10:52 Zofran Injection IVPB 4 mg Q6H PRN Administration NAUSEA AND/OR VOMITING Oxycodone HCl 10 mg 06/20/17 21:00 06/21/17 03:23 Roxicodone - PO 10 mg Q6H PRN Administration PAIN LEVEL 4 - 6 Polyethylene Glycol 17 gm 06/19/17 10:00 06/21/17 09:45 Miralax (For Daily Use) - PO 17 gm DAILY DAKSHA Administration Splenic infarct ?likely hepatic thrombosis recent Tooth infection Transaminitis ?etiology Fatty liver vs hepatocellular disease---> ??cause of such high LFTs ID c/s reviewed EBV nuclear Ag >600, positive. For Cardiology c/s to r./o cardio-embolic cause Hypercoag w/u pending GI w/u pending Rx: for Now c/w Heparin drip. care home AC to be decided --bridge to coumadin?
[2017-06-21 14:16] LABS: PROTEIN C ACTIVITY 95 % (73-180)
[2017-06-21] MEDS: SODIUM CHLORIDE 0.45% 1,000 ML IV SCH (18:53)
[2017-06-21] MEDS: HEPARIN INFUSION - 25,000 UNITS/500 ML INFUS.BAG IVPB SCH ×2 (23:27→23:28)
[2017-06-21] MEDS: MOMETASONE FUROATE 220 MCG/IH INHALER IH SCH (23:27)
[2017-06-22 07:29] LABS: HEMATOCRIT 36.3 % (32.4-45.2); HEMOGLOBIN 12.6 GM/dL (10.7-15.3); MCH 29.9 pg (25.7-33.7); MCHC 34.6 g/dl (32.0-36.0); MEAN CELL VOLUME 86.3 fl (80-96); MEAN PLT VOLUME 8.4 fl (7.5-11.1); PLATELET COUNT 191 K/MM3 (134-434); RDW 14.2 % (11.6-15.6); WHITE BLOOD COUNT 9.9 K/mm3 (4.0-10.0)
[2017-06-22 07:59] LABS: CHLORIDE 101 mmol/L (98-107); POTASSIUM 3.7 mmol/L (3.5-5.1); SODIUM 138 mmol/L (136-145)
[2017-06-22 08:10] LABS: ALK PHOS 285 U/L (45-117); ANION GAP 10 (8-16); BILIRUBIN,TOTAL 0.6 mg/dL (0.2-1.0); BLOOD UREA NITROGEN 5 mg/dL (7-18); CALCIUM 8.4 mg/dL (8.5-10.1); CO2 27 mmol/L (21-32); CREATININE 0.6 mg/dL (0.55-1.02); GLUCOSE,RANDOM 95 mg/dL (74-106); SGOT/AST 154 U/L (15-37); SGPT/ALT 365 U/L (12-78); TOT PROT 7.1 g/dl (6.4-8.2)
[2017-06-22 10:12] LABS: ALPHA 2 MACROGLOBULINS,QN 197 mg/dL (110-276); ALT(SGPT)P5P 407 IU/L (0-40); CHOLESTEROL TOTAL 152 mg/dL (100-199); FIBROSIS SCORE 0.47 (0.00-0.21); GGT= 780 IU/L (0-60); GLUCOSE SERUM 97 mg/dL (65-99); HEIGHT 64 in (.); WEIGHT- 199 LBS (.)
[2017-06-22] MEDS: NYSTATIN 100,000 UNIT/GM TOPICAL CREAM 15 GM TUBE TP SCH (10:32)
[2017-06-22] MEDS: DOCUSATE SODIUM 100 MG CAPSULE (FP) PO SCH (10:32)
[2017-06-22] MEDS: POLYETHYLENE GLYCOL 3350 119 GM BTL PO SCH ×2 (10:32→21:55)
[2017-06-22] MEDS: SODIUM CHLORIDE 0.45% 1,000 ML IV SCH ×2 (10:34→12:56)
[2017-06-22] MEDS: oxyCODONE HCL 5 MG TABLET PO PRN ×2 (10:40→21:55)
--- NOTE | 2017-06-22 12:07 | PN ---
Progress Note, Physician History of Present Illness: complaints of minimal pain in the left upper quadrant. No acute events overnight. Also, the liver report noted and discussed with the patient. - Current Medication List Current Medications: Active Medications Docusate Sodium (Colace -) 100 mg PO DAILY DAKSHA Last Admin: 06/22/17 10:32 Dose: 100 mg Heparin Sodium (Porcine) (Heparin -) 1,000 unit IVPUSH PRN PRN PRN Reason: Heparin Last Admin: 06/18/17 11:46 Dose: 1,000 unit Heparin Sodium (Porcine) (Heparin -) 5,000 unit IVPUSH PRN PRN PRN Reason: Heparin Heparin Sodium/Dextrose (Heparin Infusion -) 25,000 units in 500 mls @ 20 mls/ hr IVPB TITR DAKSHA; 1,000 UNITS/HR PRN Reason: Protocol Last Titration: 06/22/17 08:42 Dose: 1,100 units/hr, 22 mls/hr Sodium Chloride (1/2 Normal Saline) 1,000 mls @ 125 mls/hr IV ASDIR DAKSHA Last Admin: 06/22/17 10:34 Dose: 125 mls/hr Mometasone Furoate (Asmanex 220mcg -) 1 puff IH HS DAKSHA Last Admin: 06/21/17 23:27 Dose: Not Given Nystatin (Mycostatin Cream -) 1 applic TP DAILY DAKSHA Last Admin: 06/22/17 10:32 Dose: 1 applic Ondansetron HCl (Zofran Injection) 4 mg IVPB Q6H PRN PRN Reason: NAUSEA AND/OR VOMITING Last Admin: 06/21/17 10:52 Dose: 4 mg Oxycodone HCl (Roxicodone -) 10 mg PO Q6H PRN PRN Reason: PAIN LEVEL 4 - 6 Last Admin: 06/22/17 10:40 Dose: 10 mg Polyethylene Glycol (Miralax (For Daily Use) -) 17 gm PO DAILY DAKSHA Last Admin: 06/22/17 10:32 Dose: 17 gm - Objective Vital Signs: Vital Signs Temperature 99.3 F 06/22/17 06:14 Pulse Rate 92 H 06/22/17 06:14 Respiratory Rate 20 06/22/17 06:14 Blood Pressure 114/59 06/22/17 06:14 O2 Sat by Pulse Oximetry (%) 98 06/21/17 21:00 Constitutional: Yes: No Distress Eyes: Yes: Conjunctiva Clear HENT: Yes: Atraumatic Neck: Yes: Supple Cardiovascular: Yes: Regular Rate and Rhythm Respiratory: Yes: Regular Gastrointestinal: Yes: Normal Bowel Sounds, Soft. No: Tenderness Neurological: Yes: Alert, Oriented Labs: CBC, BMP 06/22/17 06:49 06/22/17 06:49 INR, PTT INR 1.12 (0.82-1.09) 06/17/17 23:39 Laboratory Results - last 24 hr 06/19/17 06/19/17 06/21/17 07:24 07:24 06:15 WBC RBC Hgb Hct MCV MCH MCHC RDW Plt Count MPV Total Counted Neutrophils % Neutrophils % (Manual) Band Neutrophils % Lymphocytes % Lymphocytes % (Manual) Monocytes % (Manual) Metamyelocytes ESR Haptoglobin 137 PTT (Actin FS) Protein C Activity 95 Protein S Activity 60 L Sodium Potassium Chloride Carbon Dioxide Anion Gap BUN Creatinine Creat Clearance w eGFR Glucose 97 Random Glucose Calcium Total Bilirubin 0.3 GGT 780 H AST 226 H ALT 407 H Alkaline Phosphatase Liver Fibrosis Score 0.47 H Liver Fibrosis Stage F1-f2 C-Reactive Protein Total Protein Total Protein (PEP) Albumin Albumin (PEP) Globulin Albumin/Globulin Ratio Bohwl-1-Ebyccdyfj (%) Oosid-6-Frzfyefqs (%) Banwy-2-Vspuabxfapote 197 Beta Globulins Beta Globulins (%) Gamma Globulins (%) M-Micheal % Triglycerides 231 H Cholesterol 152 Apolipoprotein A-1 100 L TSH 3.30 Patient Height (cm) 64 Patient Weight (kg) 199 CSF IgG Interpretation CLARISSA M-Micheal Rheumatoid Factor 22.3 H EBV Nuclear Antigen >600.0 H HIV 1&2 Antibody Screen HIV P24 Antigen Ref Test Comments 06/21/17 06/21/17 06/22/17 06:15 06:15 06:49 WBC RBC Hgb Hct MCV MCH MCHC RDW Plt Count MPV Total Counted Neutrophils % Neutrophils % (Manual) Band Neutrophils % Lymphocytes % Lymphocytes % (Manual) Monocytes % (Manual) Metamyelocytes ESR Haptoglobin PTT (Actin FS) 50.6 H Protein C Activity Protein S Activity Sodium Potassium Chloride Carbon Dioxide Anion Gap BUN Creatinine Creat Clearance w eGFR Glucose Random Glucose Calcium Total Bilirubin GGT AST ALT Alkaline Phosphatase Liver Fibrosis Score Liver Fibrosis Stage C-Reactive Protein Total Protein Total Protein (PEP) Cancelled Albumin Albumin (PEP) Cancelled Globulin Cancelled Albumin/Globulin Ratio Cancelled Qvwhd-2-Eyvapqput (%) Cancelled Jlxof-9-Legxrvpqf (%) Cancelled Xlyfv-5-Gyxvjlwchpisd Beta Globulins Cancelled Beta Globulins (%) Cancelled Gamma Globulins (%) Cancelled M-Micheal % Cancelled Triglycerides Cholesterol Apolipoprotein A-1 TSH Cancelled Patient Height (cm) Patient Weight (kg) CSF IgG Interpretation CLARISSA M-Micheal Cancelled Rheumatoid Factor EBV Nuclear Antigen HIV 1&2 Antibody Screen HIV P24 Antigen Ref Test Comments Cancelled 06/22/17 06/22/17 06/22/17 06:49 06:49 06:49 WBC RBC Hgb Hct MCV MCH MCHC RDW Plt Count MPV Total Counted Neutrophils % Neutrophils % (Manual) Band Neutrophils % Lymphocytes % Lymphocytes % (Manual) Monocytes % (Manual) Metamyelocytes ESR 64 H Haptoglobin PTT (Actin FS) Protein C Activity Protein S Activity Sodium 138 Potassium 3.7 Chloride 101 Carbon Dioxide 27 Anion Gap 10 BUN 5 L Creatinine 0.6 Creat Clearance w eGFR > 60 Glucose Random Glucose 95 Calcium 8.4 L Total Bilirubin 0.6 GGT AST 154 H ALT 365 H Alkaline Phosphatase 285 H Liver Fibrosis Score Liver Fibrosis Stage C-Reactive Protein 1.6 H Total Protein 7.1 Total Protein (PEP) Albumin 3.0 L Albumin (PEP) Globulin Albumin/Globulin Ratio Ovkio-9-Pwwsmopop (%) Iccik-7-Dujqezujb (%) Bghht-7-Qestknkbtxnaj Beta Globulins Beta Globulins (%) Gamma Globulins (%) M-Micheal % Triglycerides Cholesterol Apolipoprotein A-1 TSH Patient Height (cm) Patient Weight (kg) CSF IgG Interpretation CLARISSA M-Micheal Rheumatoid Factor EBV Nuclear Antigen HIV 1&2 Antibody Screen Negative HIV P24 Antigen Negative Ref Test Comments 06/22/17 06:49 WBC 9.9 RBC 4.20 Hgb 12.6 Hct 36.3 MCV 86.3 MCH 29.9 MCHC 34.6 RDW 14.2 Plt Count 191 MPV 8.4 Total Counted 100 Neutrophils % No Result Required. Neutrophils % (Manual) 43.0 D Band Neutrophils % 4.0 Lymphocytes % No Result Required. Lymphocytes % (Manual) 40.0 Monocytes % (Manual) 5 Metamyelocytes 1 D ESR Haptoglobin PTT (Actin FS) Protein C Activity Protein S Activity Sodium Potassium Chloride Carbon Dioxide Anion Gap BUN Creatinine Creat Clearance w eGFR Glucose Random Glucose Calcium Total Bilirubin GGT AST ALT Alkaline Phosphatase Liver Fibrosis Score Liver Fibrosis Stage C-Reactive Protein Total Protein Total Protein (PEP) Albumin Albumin (PEP) Globulin Albumin/Globulin Ratio Tavpp-8-Blfqqcnmb (%) Ftgnr-8-Qifbljxqn (%) Cemyg-7-Qfkphxqdfvlrt Beta Globulins Beta Globulins (%) Gamma Globulins (%) M-Micheal % Triglycerides Cholesterol Apolipoprotein A-1 TSH Patient Height (cm) Patient Weight (kg) CSF IgG Interpretation CLARISSA M-Micheal Rheumatoid Factor EBV Nuclear Antigen HIV 1&2 Antibody Screen HIV P24 Antigen Ref Test Comments Laboratory Tests 06/17/17 06/17/17 06/17/17 14:55 14:55 16:13 WBC 9.1 RBC 4.53 Hgb 13.4 Hct 39.0 MCV 86.0 MCH 29.7 MCHC 34.5 RDW 14.0 Plt Count 177 MPV 8.8 Total Counted Neutrophils % No Result Required. Neutrophils % (Manual) 28.0 L Band Neutrophils % 6.0 Lymphocytes % No Result Required. Lymphocytes % (Manual) 54.0 H Monocytes % Monocytes % (Manual) 1 L Eosinophils % Eosinophils % (Manual) 1.0 Basophils % Basophils % (Manual) 0.0 Myelocytes % (Man) Promyelocytes % (Man) Blast Cells % (Manual) Nucleated RBC % Metamyelocytes Platelet Estimate Adequate ESR Haptoglobin PT with INR INR PTT (Actin FS) Protein C Activity Protein S Activity Sodium 139 Potassium 3.6 Chloride 106 Carbon Dioxide 25 Anion Gap 8 BUN 5 L Creatinine 0.6 Creat Clearance w eGFR > 60 Glucose Random Glucose 101 Calcium 8.5 Ferritin Total Bilirubin 0.5 Direct Bilirubin GGT AST 261 H ALT 457 H Alkaline Phosphatase 330 H Liver Fibrosis Score Liver Fibrosis Stage Troponin I C-Reactive Protein Total Protein 7.2 Total Protein (PEP) Albumin 3.5 Albumin (PEP) Globulin Albumin/Globulin Ratio Yqmkh-7-Hnqcfdyad (%) Vqrnk-4-Fhtwdnneb (%) Tmsqs-9-Lxtmzetwqnvxe Beta Globulins Beta Globulins (%) Gamma Globulins (%) M-Micheal % Triglycerides Cholesterol Apolipoprotein A-1 Total Amylase Lipase TSH Patient Height (cm) Patient Weight (kg) Urine Color Yellow Urine Appearance Slcloudy Urine pH 5.0 Ur Specific [place] 1.013 Urine Protein Negative Urine Glucose (UA) Negative Urine Ketones Negative Urine Blood 1+ H Urine Nitrite Negative Urine Bilirubin Negative Urine Urobilinogen 2.0 H Ur Leukocyte Esterase Negative Urine WBC (Auto) 3 Urine RBC (Auto) 4 Ur Epithelial Cells Moderate Urine Bacteria Rare Urine Mucus Rare Urine HCG, Qual Negative CSF IgG Interpretation CLARISSA M-Micheal Rheumatoid Factor DARLEEN Screen Smooth Musc &GENER[employer] Intrp EBV Nuclear Antigen Hep A IgM Ab Confirm Hepatitis A Ab Total Hep Bs Antigen Hep Bs Antibody Hep B Core Total Ab Hep C Ab Diagnostic Liver Fibrosis Interp HIV 1&2 Antibody Screen HIV P24 Antigen Ref Test Comments Blood Type Antibody Screen 06/17/17 06/17/17 06/18/17 23:39 23:39 00:00 WBC RBC Hgb Hct MCV MCH MCHC RDW Plt Count MPV Total Counted Neutrophils % Neutrophils % (Manual) Band Neutrophils % Lymphocytes % Lymphocytes % (Manual) Monocytes % Monocytes % (Manual) Eosinophils % Eosinophils % (Manual) Basophils % Basophils % (Manual) Myelocytes % (Man) Promyelocytes % (Man) Blast Cells % (Manual) Nucleated RBC % Metamyelocytes Platelet Estimate ESR Haptoglobin PT with INR 12.60 INR 1.12 PTT (Actin FS) 40.0 H Protein C Activity Protein S Activity Sodium Potassium Chloride Carbon Dioxide Anion Gap BUN Creatinine Creat Clearance w eGFR Glucose Random Glucose Calcium Ferritin Total Bilirubin Direct Bilirubin GGT AST ALT Alkaline Phosphatase Liver Fibrosis Score Liver Fibrosis Stage Troponin I C-Reactive Protein Total Protein Total Protein (PEP) Albumin Albumin (PEP) Globulin Albumin/Globulin Ratio Tnwyp-3-Ufokghfja (%) Mjxam-1-Mnvwhceyy (%) Sqpew-1-Pspggvqdohbcx Beta Globulins Beta Globulins (%) Gamma Globulins (%) M-Micheal % Triglycerides Cholesterol Apolipoprotein A-1 Total Amylase Lipase TSH Patient Height (cm) Patient Weight (kg) Urine Color Urine Appearance Urine pH Ur Specific [place] Urine Protein Urine Glucose (UA) Urine Ketones Urine Blood Urine Nitrite Urine Bilirubin Urine Urobilinogen Ur Leukocyte Esterase Urine WBC (Auto) Urine RBC (Auto) Ur Epithelial Cells Urine Bacteria Urine Mucus Urine HCG, Qual CSF IgG Interpretation CLARISSA M-Micheal Rheumatoid Factor DARLEEN Screen Smooth Musc &[employer] Intrp EBV Nuclear Antigen Hep A IgM Ab Confirm Hepatitis A Ab Total Hep Bs Antigen Hep Bs Antibody Hep B Core Total Ab Hep C Ab Diagnostic Liver Fibrosis Interp HIV 1&2 Antibody Screen HIV P24 Antigen Ref Test Comments Blood Type O NEGATIVE Antibody Screen Negative 06/18/17 06/18/17 06/18/17 06:55 07:05 07:05 WBC 7.7 RBC 4.42 Hgb 13.3 Hct 38.1 MCV 86.2 MCH 30.1 MCHC 35.0 RDW 13.9 Plt Count 166 MPV 8.8 Total Counted Neutrophils % No Result Required. Neutrophils % (Manual) 21.2 L D Band Neutrophils % 13.1 Lymphocytes % No Result Required. Lymphocytes % (Manual) 48.5 H Monocytes % Monocytes % (Manual) 7 D Eosinophils % Eosinophils % (Manual) 1.0 Basophils % Basophils % (Manual) 0.0 Myelocytes % (Man) 0 Promyelocytes % (Man) 0 Blast Cells % (Manual) 0 Nucleated RBC % 0 Metamyelocytes 0 Platelet Estimate Normal ESR Haptoglobin PT with INR INR PTT (Actin FS) Protein C Activity Protein S Activity Sodium 140 Potassium 3.5 Chloride 105 Carbon Dioxide 25 Anion Gap 10 BUN 4 L Creatinine 0.5 L Creat Clearance w eGFR > 60 Glucose Random Glucose 94 Calcium 8.3 L Ferritin Total Bilirubin 0.6 Direct Bilirubin GGT AST 269 H ALT 457 H Alkaline Phosphatase 298 H Liver Fibrosis Score Liver Fibrosis Stage Troponin I Cancelled < 0.02 C-Reactive Protein Total Protein 6.8 Total Protein (PEP) Albumin 3.3 L Albumin (PEP) Globulin Albumin/Globulin Ratio Tlbuv-3-Oawdmmkuo (%) Neiik-8-Eezqnimij (%) Csiob-0-Wntjzecuqryly Beta Globulins Beta Globulins (%) Gamma Globulins (%) M-Micheal % Triglycerides Cholesterol Apolipoprotein A-1 Total Amylase 31 Lipase 74 TSH Patient Height (cm) Patient Weight (kg) Urine Color Urine Appearance Urine pH Ur Specific [place] Urine Protein Urine Glucose (UA) Urine Ketones Urine Blood Urine Nitrite Urine Bilirubin Urine Urobilinogen Ur Leukocyte Esterase Urine WBC (Auto) Urine RBC (Auto) Ur Epithelial Cells Urine Bacteria Urine Mucus Urine HCG, Qual CSF IgG Interpretation CLARISSA M-Micheal Rheumatoid Factor DARLEEN Screen Smooth Musc &[employer] Intrp EBV Nuclear Antigen Hep A IgM Ab Confirm Hepatitis A Ab Total Hep Bs Antigen Hep Bs Antibody Hep B Core Total Ab Hep C Ab Diagnostic Liver Fibrosis Interp HIV 1&2 Antibody Screen HIV P24 Antigen Ref Test Comments Blood Type Antibody Screen 06/18/17 06/18/17 06/18/17 07:05 07:05 09:35 WBC RBC Hgb Hct MCV MCH MCHC RDW Plt Count MPV Total Counted Neutrophils % Neutrophils % (Manual) Band Neutrophils % Lymphocytes % Lymphocytes % (Manual) Monocytes % Monocytes % (Manual) Eosinophils % Eosinophils % (Manual) Basophils % Basophils % (Manual) Myelocytes % (Man) Promyelocytes % (Man) Blast Cells % (Manual) Nucleated RBC % Metamyelocytes Platelet Estimate ESR Haptoglobin PT with INR INR PTT (Actin FS) 42.9 H Protein C Activity Protein S Activity Sodium Potassium Chloride Carbon Dioxide Anion Gap BUN Creatinine Creat Clearance w eGFR Glucose Random Glucose Calcium Ferritin Total Bilirubin Direct Bilirubin GGT AST ALT Alkaline Phosphatase Liver Fibrosis Score Liver Fibrosis Stage Troponin I C-Reactive Protein Total Protein Total Protein (PEP) Albumin Albumin (PEP) Globulin Albumin/Globulin Ratio Tbvob-9-Eswknrneh (%) Jliiq-4-Nqiaztzja (%) Qezva-5-Watmqlyqngswl Beta Globulins Beta Globulins (%) Gamma Globulins (%) M-Micheal % Triglycerides Cholesterol Apolipoprotein A-1 Total Amylase Lipase TSH Patient Height (cm) Patient Weight (kg) Urine Color Urine Appearance Urine pH Ur Specific [place] Urine Protein Urine Glucose (UA) Urine Ketones Urine Blood Urine Nitrite Urine Bilirubin Urine Urobilinogen Ur Leukocyte Esterase Urine WBC (Auto) Urine RBC (Auto) Ur Epithelial Cells Urine Bacteria Urine Mucus Urine HCG, Qual CSF IgG Interpretation CLARISSA M-Micheal Rheumatoid Factor DARLEEN Screen Smooth Musc &[employer] Intrp EBV Nuclear Antigen Hep A IgM Ab Confirm Negative Hepatitis A Ab Total Positive H Hep Bs Antigen Negative Hep Bs Antibody Reactive Hep B Core Total Ab Negative Hep C Ab Diagnostic <0.1 Liver Fibrosis Interp HIV 1&2 Antibody Screen HIV P24 Antigen Ref Test Comments Blood Type Antibody Screen 06/18/17 06/19/17 06/19/17 18:00 07:24 07:24 WBC RBC Hgb Hct MCV MCH MCHC RDW Plt Count MPV Total Counted Neutrophils % Neutrophils % (Manual) Band Neutrophils % Lymphocytes % Lymphocytes % (Manual) Monocytes % Monocytes % (Manual) Eosinophils % Eosinophils % (Manual) Basophils % Basophils % (Manual) Myelocytes % (Man) Promyelocytes % (Man) Blast Cells % (Manual) Nucleated RBC % Metamyelocytes Platelet Estimate ESR Haptoglobin PT with INR INR PTT (Actin FS) 52.2 H 58.6 H Protein C Activity Protein S Activity Sodium Potassium Chloride Carbon Dioxide Anion Gap BUN Creatinine Creat Clearance w eGFR Glucose Random Glucose Calcium Ferritin Total Bilirubin Direct Bilirubin GGT AST ALT Alkaline Phosphatase Liver Fibrosis Score Liver Fibrosis Stage Troponin I C-Reactive Protein Total Protein Total Protein (PEP) Albumin Albumin (PEP) Globulin Albumin/Globulin Ratio Rqaci-9-Enlrlgfhf (%) Vjyua-6-Irbuiovrl (%) Ijwzx-0-Wvaxgazgxoyjf Beta Globulins Beta Globulins (%) Gamma Globulins (%) M-Micheal % Triglycerides Cholesterol Apolipoprotein A-1 Total Amylase Lipase TSH Patient Height (cm) Patient Weight (kg) Urine Color Urine Appearance Urine pH Ur Specific [place] Urine Protein Urine Glucose (UA) Urine Ketones Urine Blood Urine Nitrite Urine Bilirubin Urine Urobilinogen Ur Leukocyte Esterase Urine WBC (Auto) Urine RBC (Auto) Ur Epithelial Cells Urine Bacteria Urine Mucus Urine HCG, Qual CSF IgG Interpretation CLARISSA M-Micheal Rheumatoid Factor DARLEEN Screen Smooth Musc &[employer] Intrp EBV Nuclear Antigen >600.0 H Hep A IgM Ab Confirm Hepatitis A Ab Total Hep Bs Antigen Hep Bs Antibody Hep B Core Total Ab Hep C Ab Diagnostic Liver Fibrosis Interp HIV 1&2 Antibody Screen HIV P24 Antigen Ref Test Comments Blood Type Antibody Screen 06/19/17 06/19/17 06/19/17 07:24 07:24 07:24 WBC 9.0 RBC 4.33 Hgb 13.0 Hct 37.2 MCV 85.9 MCH 30.0 MCHC 34.9 RDW 13.8 Plt Count 183 MPV 8.5 Total Counted Neutrophils % 37.0 L Neutrophils % (Manual) Band Neutrophils % Lymphocytes % 52.8 H Lymphocytes % (Manual) Monocytes % 9.3 Monocytes % (Manual) Eosinophils % 0.5 Eosinophils % (Manual) Basophils % 0.4 Basophils % (Manual) Myelocytes % (Man) Promyelocytes % (Man) Blast Cells % (Manual) Nucleated RBC % Metamyelocytes Platelet Estimate ESR Haptoglobin PT with INR INR PTT (Actin FS) Protein C Activity Protein S Activity Sodium Potassium Chloride Carbon Dioxide Anion Gap BUN Creatinine Creat Clearance w eGFR Glucose Random Glucose Calcium Ferritin 474.841 H Total Bilirubin 0.5 Direct Bilirubin 0.3 H GGT AST 228 H ALT 457 H Alkaline Phosphatase 303 H Liver Fibrosis Score Liver Fibrosis Stage Troponin I C-Reactive Protein 1.8 H Total Protein 7.1 Total Protein (PEP) Albumin 3.1 L Albumin (PEP) Globulin Albumin/Globulin Ratio Faylw-4-Wunjkpuqh (%) Qdtxi-9-Gqcqihprz (%) Cvwew-3-Pozyuksfkmlwa Beta Globulins Beta Globulins (%) Gamma Globulins (%) M-Micheal % Triglycerides Cholesterol Apolipoprotein A-1 Total Amylase Lipase TSH Patient Height (cm) Patient Weight (kg) Urine Color Urine Appearance Urine pH Ur Specific [place] Urine Protein Urine Glucose (UA) Urine Ketones Urine Blood Urine Nitrite Urine Bilirubin Urine Urobilinogen Ur Leukocyte Esterase Urine WBC (Auto) Urine RBC (Auto) Ur Epithelial Cells Urine Bacteria Urine Mucus Urine HCG, Qual CSF IgG Interpretation CLARISSA M-Micheal Rheumatoid Factor DARLEEN Screen Smooth Musc &[employer] Intrp EBV Nuclear Antigen Hep A IgM Ab Confirm Hepatitis A Ab Total Hep Bs Antigen Hep Bs Antibody Hep B Core Total Ab Hep C Ab Diagnostic Liver Fibrosis Interp HIV 1&2 Antibody Screen HIV P24 Antigen Ref Test Comments Blood Type Antibody Screen 06/19/17 06/20/17 06/20/17 07:24 06:35 06:35 WBC RBC Hgb Hct MCV MCH MCHC RDW Plt Count MPV Total Counted Neutrophils % Neutrophils % (Manual) Band Neutrophils % Lymphocytes % Lymphocytes % (Manual) Monocytes % Monocytes % (Manual) Eosinophils % Eosinophils % (Manual) Basophils % Basophils % (Manual) Myelocytes % (Man) Promyelocytes % (Man) Blast Cells % (Manual) Nucleated RBC % Metamyelocytes Platelet Estimate ESR Haptoglobin 137 PT with INR INR PTT (Actin FS) 53.4 H Protein C Activity 95 Protein S Activity 60 L Sodium Potassium Chloride Carbon Dioxide Anion Gap BUN Creatinine Creat Clearance w eGFR Glucose 97 Random Glucose Calcium Ferritin Total Bilirubin 0.3 0.6 Direct Bilirubin 0.4 H GGT 780 H AST 226 H 272 H ALT 407 H 454 H Alkaline Phosphatase 295 H Liver Fibrosis Score 0.47 H Liver Fibrosis Stage F1-f2 Troponin I C-Reactive Protein Total Protein 7.1 Total Protein (PEP) Albumin 3.0 L Albumin (PEP) Globulin Albumin/Globulin Ratio Gzufi-8-Wqoesdmja (%) Axfwg-7-Dgzaxyteh (%) Zkguh-4-Huupuaponmobs 197 Beta Globulins Beta Globulins (%) Gamma Globulins (%) M-Micheal % Triglycerides 231 H Cholesterol 152 Apolipoprotein A-1 100 L Total Amylase Lipase TSH Patient Height (cm) 64 Patient Weight (kg) 199 Urine Color Urine Appearance Urine pH Ur Specific [place] Urine Protein Urine Glucose (UA) Urine Ketones Urine Blood Urine Nitrite Urine Bilirubin Urine Urobilinogen Ur Leukocyte Esterase Urine WBC (Auto) Urine RBC (Auto) Ur Epithelial Cells Urine Bacteria Urine Mucus Urine HCG, Qual CSF IgG Interpretation CLARISSA M-Micheal Rheumatoid Factor DARLEEN Screen Negative Smooth Musc &[employer] Intrp 17 EBV Nuclear Antigen Hep A IgM Ab Confirm Hepatitis A Ab Total Hep Bs Antigen Hep Bs Antibody Hep B Core Total Ab Hep C Ab Diagnostic Liver Fibrosis Interp HIV 1&2 Antibody Screen HIV P24 Antigen Ref Test Comments Blood Type Antibody Screen 06/21/17 06/21/17 06/21/17 06:15 06:15 06:15 WBC 9.7 RBC 4.27 Hgb 12.7 Hct 36.7 MCV 86.0 MCH 29.8 MCHC 34.7 RDW 13.8 Plt Count 194 MPV 8.8 Total Counted Neutrophils % No Result Required. Neutrophils % (Manual) 32.0 L D Band Neutrophils % 0.0 Lymphocytes % No Result Required. Lymphocytes % (Manual) 40.0 Monocytes % Monocytes % (Manual) 4 Eosinophils % Eosinophils % (Manual) 1.0 Basophils % Basophils % (Manual) 1.0 D Myelocytes % (Man) 0 Promyelocytes % (Man) 0 Blast Cells % (Manual) 0 Nucleated RBC % 1 H Metamyelocytes 0 Platelet Estimate Normal ESR Haptoglobin PT with INR INR PTT (Actin FS) 51.8 H Protein C Activity Protein S Activity Sodium 138 Potassium 3.5 Chloride 101 Carbon Dioxide 28 Anion Gap 9 BUN 5 L Creatinine 0.6 Creat Clearance w eGFR Glucose Random Glucose 88 Calcium 8.6 Ferritin Total Bilirubin 0.6 Direct Bilirubin 0.3 H GGT AST 229 H ALT 459 H Alkaline Phosphatase 294 H Liver Fibrosis Score Liver Fibrosis Stage Troponin I C-Reactive Protein Total Protein 7.3 Total Protein (PEP) Albumin 3.1 L Albumin (PEP) Globulin Albumin/Globulin Ratio Pnyhl-3-Lkgcndjso (%) Fidsi-8-Vyjybnijf (%) Qjzlc-5-Qzokyoecokvob Beta Globulins Beta Globulins (%) Gamma Globulins (%) M-Micheal % Triglycerides Cholesterol Apolipoprotein A-1 Total Amylase Lipase TSH Patient Height (cm) Patient Weight (kg) Urine Color Urine Appearance Urine pH Ur Specific [place] Urine Protein Urine Glucose (UA) Urine Ketones Urine Blood Urine Nitrite Urine Bilirubin Urine Urobilinogen Ur Leukocyte Esterase Urine WBC (Auto) Urine RBC (Auto) Ur Epithelial Cells Urine Bacteria Urine Mucus Urine HCG, Qual CSF IgG Interpretation CLARISSA M-Micheal Rheumatoid Factor DARLEEN Screen Smooth Musc &[employer] Intrp EBV Nuclear Antigen Hep A IgM Ab Confirm Hepatitis A Ab Total Hep Bs Antigen Hep Bs Antibody Hep B Core Total Ab Hep C Ab Diagnostic Liver Fibrosis Interp HIV 1&2 Antibody Screen HIV P24 Antigen Ref Test Comments Blood Type Antibody Screen 06/21/17 06/21/17 06/21/17 06:15 06:15 06:15 WBC RBC Hgb Hct MCV MCH MCHC RDW Plt Count MPV Total Counted Neutrophils % Neutrophils % (Manual) Band Neutrophils % Lymphocytes % Lymphocytes % (Manual) Monocytes % Monocytes % (Manual) Eosinophils % Eosinophils % (Manual) Basophils % Basophils % (Manual) Myelocytes % (Man) Promyelocytes % (Man) Blast Cells % (Manual) Nucleated RBC % Metamyelocytes Platelet Estimate ESR 33 H Haptoglobin PT with INR INR PTT (Actin FS) Protein C Activity Protein S Activity Sodium Potassium Chloride Carbon Dioxide Anion Gap BUN Creatinine Creat Clearance w eGFR Glucose Random Glucose Calcium Ferritin Total Bilirubin Direct Bilirubin GGT AST ALT Alkaline Phosphatase Liver Fibrosis Score Liver Fibrosis Stage Troponin I C-Reactive Protein Total Protein Total Protein (PEP) Cancelled Albumin Albumin (PEP) Cancelled Globulin Cancelled Albumin/Globulin Ratio Cancelled Hhssk-1-Guyjwgzkp (%) Cancelled Hxbol-2-Sjjaosqwb (%) Cancelled Gymmk-0-Lhimjnhvseyds Beta Globulins Cancelled Beta Globulins (%) Cancelled Gamma Globulins (%) Cancelled M-Micheal % Cancelled Triglycerides Cholesterol Apolipoprotein A-1 Total Amylase Lipase TSH 3.30 Patient Height (cm) Patient Weight (kg) Urine Color Urine Appearance Urine pH Ur Specific [place] Urine Protein Urine Glucose (UA) Urine Ketones Urine Blood Urine Nitrite Urine Bilirubin Urine Urobilinogen Ur Leukocyte Esterase Urine WBC (Auto) Urine RBC (Auto) Ur Epithelial Cells Urine Bacteria Urine Mucus Urine HCG, Qual CSF IgG Interpretation CLARISSA M-Micheal Cancelled Rheumatoid Factor 22.3 H DARLEEN Screen Smooth Musc &[employer] Intrp EBV Nuclear Antigen Hep A IgM Ab Confirm Hepatitis A Ab Total Hep Bs Antigen Hep Bs Antibody Hep B Core Total Ab Hep C Ab Diagnostic Liver Fibrosis Interp HIV 1&2 Antibody Screen HIV P24 Antigen Ref Test Comments Cancelled Blood Type Antibody Screen 06/21/17 06/22/17 06/22/17 06:15 06:49 06:49 WBC RBC Hgb Hct MCV MCH MCHC RDW Plt Count MPV Total Counted Neutrophils % Neutrophils % (Manual) Band Neutrophils % Lymphocytes % Lymphocytes % (Manual) Monocytes % Monocytes % (Manual) Eosinophils % Eosinophils % (Manual) Basophils % Basophils % (Manual) Myelocytes % (Man) Promyelocytes % (Man) Blast Cells % (Manual) Nucleated RBC % Metamyelocytes Platelet Estimate ESR Haptoglobin PT with INR INR PTT (Actin FS) 50.6 H Protein C Activity Protein S Activity Sodium 138 Potassium 3.7 Chloride 101 Carbon Dioxide 27 Anion Gap 10 BUN 5 L Creatinine 0.6 Creat Clearance w eGFR > 60 Glucose Random Glucose 95 Calcium 8.4 L Ferritin Total Bilirubin 0.6 Direct Bilirubin GGT AST 154 H ALT 365 H Alkaline Phosphatase 285 H Liver Fibrosis Score Liver Fibrosis Stage Troponin I C-Reactive Protein 1.6 H Total Protein 7.1 Total Protein (PEP) Albumin 3.0 L Albumin (PEP) Globulin Albumin/Globulin Ratio Jaxka-5-Gdvarqioo (%) Fgxip-1-Etdzxpqzh (%) Sceub-6-Dsehvgsoihaxu Beta Globulins Beta Globulins (%) Gamma Globulins (%) M-Micheal % Triglycerides Cholesterol Apolipoprotein A-1 Total Amylase Lipase TSH Cancelled Patient Height (cm) Patient Weight (kg) Urine Color Urine Appearance Urine pH Ur Specific [place] Urine Protein Urine Glucose (UA) Urine Ketones Urine Blood Urine Nitrite Urine Bilirubin Urine Urobilinogen Ur Leukocyte Esterase Urine WBC (Auto) Urine RBC (Auto) Ur Epithelial Cells Urine Bacteria Urine Mucus Urine HCG, Qual CSF IgG Interpretation CLARISSA M-Micheal Rheumatoid Factor DARLEEN Screen Smooth Musc &GENERAL PASSENGER AGENT Intrp EBV Nuclear Antigen Hep A IgM Ab Confirm Hepatitis A Ab Total Hep Bs Antigen Hep Bs Antibody Hep B Core Total Ab Hep C Ab Diagnostic Liver Fibrosis Interp HIV 1&2 Antibody Screen HIV P24 Antigen Ref Test Comments Blood Type Antibody Screen 06/22/17 06/22/17 06/22/17 06:49 06:49 06:49 WBC 9.9 RBC 4.20 Hgb 12.6 Hct 36.3 MCV 86.3 MCH 29.9 MCHC 34.6 RDW 14.2 Plt Count 191 MPV 8.4 Total Counted 100 Neutrophils % No Result Required. Neutrophils % (Manual) 43.0 D Band Neutrophils % 4.0 Lymphocytes % No Result Required. Lymphocytes % (Manual) 40.0 Monocytes % Monocytes % (Manual) 5 Eosinophils % Eosinophils % (Manual) Basophils % Basophils % (Manual) Myelocytes % (Man) Promyelocytes % (Man) Blast Cells % (Manual) Nucleated RBC % Metamyelocytes 1 D Platelet Estimate ESR 64 H Haptoglobin PT with INR INR PTT (Actin FS) Protein C Activity Protein S Activity Sodium Potassium Chloride Carbon Dioxide Anion Gap BUN Creatinine Creat Clearance w eGFR Glucose Random Glucose Calcium Ferritin Total Bilirubin Direct Bilirubin GGT AST ALT Alkaline Phosphatase Liver Fibrosis Score Liver Fibrosis Stage Troponin I C-Reactive Protein Total Protein Total Protein (PEP) Albumin Albumin (PEP) Globulin Albumin/Globulin Ratio Gcsep-4-Lfoqkqgom (%) Uggjs-9-Uesmtylgp (%) Owuqa-1-Fjrixykwmehme Beta Globulins Beta Globulins (%) Gamma Globulins (%) M-Micheal % Triglycerides Cholesterol Apolipoprotein A-1 Total Amylase Lipase TSH Patient Height (cm) Patient Weight (kg) Urine Color Urine Appearance Urine pH Ur Specific [place] Urine Protein Urine Glucose (UA) Urine Ketones Urine Blood Urine Nitrite Urine Bilirubin Urine Urobilinogen Ur Leukocyte Esterase Urine WBC (Auto) Urine RBC (Auto) Ur Epithelial Cells Urine Bacteria Urine Mucus Urine HCG, Qual CSF IgG Interpretation CLARISSA M-Micheal Rheumatoid Factor DARLEEN Screen Smooth Musc &GENERAL PASSENGER AGENT Intrp EBV Nuclear Antigen Hep A IgM Ab Confirm Hepatitis A Ab Total Hep Bs Antigen Hep Bs Antibody Hep B Core Total Ab Hep C Ab Diagnostic Liver Fibrosis Interp HIV 1&2 Antibody Screen Negative HIV P24 Antigen Negative Ref Test Comments Blood Type Antibody Screen Problem List - Problems (1) Abnormal liver enzymes Code(s): R74.8 - ABNORMAL LEVELS OF OTHER SERUM ENZYMES Assessment/Plan 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 Workup so far positive only for EBV. ?Treat. Given recent infection and antibiotic use, suspect drug-induced liver injury. It may take up to 6 weeks for liver chemistry to improve. Liver chemistry follow-up in one 2 weeks was discussed with the patient. Await coagulopathy workup results.
--- NOTE | 2017-06-22 12:07 | CON.CARD ---
Consult Consult Specialty:: Cardiology Referred by:: Dr. Ramsey Reason for Consultation:: Evaluate for cardioembolic source - History of Present Illness Chief Complaint: LUQ pain History of Present Illness: 46F developed abrupt onset left paraumbical pain yesterday with pleuritic component and is aggravated by deep inspiration and coughing. It is also aggravated by changing her position. She was taking control until 03/10. She denies any history of previous thrombosis or bleeding after wisdom tooth extractions. 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 - History Source History Provided By: Patient Limitations to Obtaining History: No Limitations - Past Medical History Cardio/Vascular: Yes: Hyperlipdemia Pulmonary: Yes: Asthma Renal/: Yes: Renal Calculi (required ESWL) ...LMP: 05/31/17 ...: No Endocrine: Yes: Other (" prediabetic") - Past Surgical History Additional Surgical History: bunionectomy. wisdom teeth extractions - Alcohol/Substance Use Hx Alcohol Use: No - Smoking History Smoking history: Never smoked Home Medications - Allergies Allergies/Adverse Reactions: Allergies Allergy/AdvReac Type Severity Reaction Status Date / Time No Known Allergies Allergy Verified 06/17/17 14:44 - Home Medications Home Medications: Ambulatory Orders Butalb/Acetaminophen/Caffeine [Xpbhym-Ustdojyj-Eivi 50-325-40] 1 each PO DAILY 06/17/17 Cholecalciferol (Vitamin D3) [Vitamin D3 -] 1,000 unit PO DAILY 06/17/17 Fluticasone Propionate [Flovent Diskus] 250 mcg IH DAILY 06/17/17 Nystatin Cream [Mycostatin Cream -] 1 applic TP DAILY 06/17/17 Ranitidine [Zantac -] 150 mg PO BID 06/17/17 Norethindrone 0.35 mg PO DAILY 06/20/17 Family Disease History - Family Disease History Family Disease History: Diabetes: Father ( [place] in his 50's), Mother (thyroid disease, 85), Brother, Sister, Heart Disease: Father Review of Systems - Review of Systems Gastrointestinal: reports: Abdominal Pain Vital Signs: Vital Signs Temperature 99.3 F 06/22/17 06:14 Pulse Rate 92 H 06/22/17 06:14 Respiratory Rate 20 06/22/17 06:14 Blood Pressure 114/59 06/22/17 06:14 O2 Sat by Pulse Oximetry (%) 98 06/21/17 21:00 Constitutional: Yes: No Distress, Calm Neck: Yes: Supple Respiratory: Yes: Regular, CTA Bilaterally Gastrointestinal: Yes: Soft, Hypoactive Bowel Sounds, Tenderness (LUQ) Cardiovascular: Yes: Regular Rate and Rhythm JVD: No Carotid Bruit: No Heart Sounds: Yes: S1, S2 Edema: No - Other Data Labs, Other Data: CBC, BMP 06/22/17 06:49 06/22/17 06:49 INR, PTT INR 1.12 (0.82-1.09) 06/17/17 23:39 NSR @ [address]-T changes Echo: Report Reviewed Ejection Fraction %: LVEF > or = 40 % Imaging - Results Chest X-ray: Report Reviewed (NAD) Ultrasound: Report Reviewed (Paltent hepatic, portal veins, splenic and bilateral renal veins) Problem List - Problems (1) Abnormal liver enzymes Code(s): R74.8 - ABNORMAL LEVELS OF OTHER SERUM ENZYMES (2) Splenic infarction Code(s): D73.5 - INFARCTION OF SPLEEN Assessment/Plan 1. Splenic infarction r/o cardioembolic source 2. 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 Heparin->Coumadin per INR, monitor LFTs 2. Hypercoagulable w/u ongoing, avoid OCPs 3. Holter monitor, then event recorder to r/o PAF if above unrevealing 4. ADRIEN as outpatient to exclude ENRIQUETA thrombus 5. Thank you for consultative opportunity
[2017-06-22] MEDS ORDERED: MAG HYDROX/AL HYDROX/SIMETH 30 ML UNIT-DOSE CUP PO ONE (13:44)
--- NOTE | 2017-06-22 14:27 | PN ---
Physical Exam: SUBJECTIVE: Patient seen and examined No acute events overnight. Patient continues to have abdominal pain but has improved. OBJECTIVE: Vital Signs Period Temp Pulse Resp BP Sys/Gauthier Pulse Ox Last 24 Hr 98.5 F-99.3 F 88-113 20-20 114-132/59-95 96-98 GENERAL: The patient is awake, alert, in no acute distress. HEAD: Normal with no signs of trauma. EYES: Extraocular movements intact, sclera anicteric, conjunctiva clear. No ptosis. ENT: Oropharynx clear without exudates, moist mucous membranes. no thrush. + left upper molar impacted tooth NECK: Trachea midline, full range of motion, supple. no lad, no thyromegaly LUNGS: Breath sounds equal, clear to auscultation bilaterally, no wheezes, no crackles, no accessory muscle use. HEART: Regular rate and rhythm, S1, S2 without murmur, rub or gallop. ABDOMEN: Soft, LLQ/suprapubic tenderness, nondistended, normoactive bowel sounds , no guarding, no rebound, no masses. EXTREMITIES: 2+ dp and radial b/l pulses, warm, well-perfused, no edema. NEUROLOGICAL: Cranial nerves II through XII grossly intact. Normal speech. facial symmetry PSYCH: Normal mood, normal affect. SKIN: Warm, dry, normal turgor, no rashes or lesions noted Laboratory Results - last 24 hr 06/19/17 06/19/17 06/21/17 07:24 07:24 06:15 WBC RBC Hgb Hct MCV MCH MCHC RDW Plt Count MPV Total Counted Neutrophils % Neutrophils % (Manual) Band Neutrophils % Lymphocytes % Lymphocytes % (Manual) Monocytes % (Manual) Metamyelocytes ESR Haptoglobin 137 PTT (Actin FS) Sodium Potassium Chloride Carbon Dioxide Anion Gap BUN Creatinine Creat Clearance w eGFR Glucose 97 Random Glucose Calcium Total Bilirubin 0.3 GGT 780 H AST 226 H ALT 407 H Alkaline Phosphatase Liver Fibrosis Score 0.47 H Liver Fibrosis Stage F1-f2 C-Reactive Protein Total Protein Total Protein (PEP) Albumin Albumin (PEP) Globulin Albumin/Globulin Ratio Pdcoz-4-Esmbogpub (%) Dafxj-4-Ijqievpsy (%) Vjxao-9-Ccuvksqbypvik 197 Beta Globulins Beta Globulins (%) Gamma Globulins (%) M-Micheal % Triglycerides 231 H Cholesterol 152 Apolipoprotein A-1 100 L TSH 3.30 Patient Height (cm) 64 Patient Weight (kg) 199 CSF IgG Interpretation CLARISSA M-Micheal CMV DNA Qual PCR Positive H EBV Nuclear Antigen >600.0 H HIV 1&2 Antibody Screen HIV P24 Antigen Ref Test Comments 06/21/17 06/22/17 06/22/17 06:15 06:49 06:49 WBC RBC Hgb Hct MCV MCH MCHC RDW Plt Count MPV Total Counted Neutrophils % Neutrophils % (Manual) Band Neutrophils % Lymphocytes % Lymphocytes % (Manual) Monocytes % (Manual) Metamyelocytes ESR Haptoglobin PTT (Actin FS) 50.6 H Sodium 138 Potassium 3.7 Chloride 101 Carbon Dioxide 27 Anion Gap 10 BUN 5 L Creatinine 0.6 Creat Clearance w eGFR > 60 Glucose Random Glucose 95 Calcium 8.4 L Total Bilirubin 0.6 GGT AST 154 H ALT 365 H Alkaline Phosphatase 285 H Liver Fibrosis Score Liver Fibrosis Stage C-Reactive Protein 1.6 H Total Protein 7.1 Total Protein (PEP) Cancelled Albumin 3.0 L Albumin (PEP) Cancelled Globulin Cancelled Albumin/Globulin Ratio Cancelled Veewj-6-Cfcfiptbu (%) Cancelled Stbky-8-Difgrcnzc (%) Cancelled Mcmtb-5-Xguzjbcsendjt Beta Globulins Cancelled Beta Globulins (%) Cancelled Gamma Globulins (%) Cancelled M-Micheal % Cancelled Triglycerides Cholesterol Apolipoprotein A-1 TSH Patient Height (cm) Patient Weight (kg) CSF IgG Interpretation CLARISSA M-Micheal Cancelled CMV DNA Qual PCR EBV Nuclear Antigen HIV 1&2 Antibody Screen HIV P24 Antigen Ref Test Comments Cancelled 06/22/17 06/22/17 06/22/17 06:49 06:49 06:49 WBC 9.9 RBC 4.20 Hgb 12.6 Hct 36.3 MCV 86.3 MCH 29.9 MCHC 34.6 RDW 14.2 Plt Count 191 MPV 8.4 Total Counted 100 Neutrophils % No Result Required. Neutrophils % (Manual) 43.0 D Band Neutrophils % 4.0 Lymphocytes % No Result Required. Lymphocytes % (Manual) 40.0 Monocytes % (Manual) 5 Metamyelocytes 1 D ESR 64 H Haptoglobin PTT (Actin FS) Sodium Potassium Chloride Carbon Dioxide Anion Gap BUN Creatinine Creat Clearance w eGFR Glucose Random Glucose Calcium Total Bilirubin GGT AST ALT Alkaline Phosphatase Liver Fibrosis Score Liver Fibrosis Stage C-Reactive Protein Total Protein Total Protein (PEP) Albumin Albumin (PEP) Globulin Albumin/Globulin Ratio Izvlj-5-Gkwwevtwl (%) Anlwh-9-Distcorjn (%) Uizfn-6-Folhoqagbruvy Beta Globulins Beta Globulins (%) Gamma Globulins (%) M-Micheal % Triglycerides Cholesterol Apolipoprotein A-1 TSH Patient Height (cm) Patient Weight (kg) CSF IgG Interpretation CLARISSA M-Micheal CMV DNA Qual PCR EBV Nuclear Antigen HIV 1&2 Antibody Screen Negative HIV P24 Antigen Negative Ref Test Comments Active Medications Generic Name Dose Route Start Last Admin Trade Name Freq PRN Reason Stop Dose Admin Docusate Sodium 100 mg 06/19/17 10:00 06/22/17 10:32 Colace - PO 100 mg DAILY DAKSHA Administration Heparin Sodium (Porcine) 1,000 unit 06/17/17 22:26 06/18/17 11:46 Heparin - IVPUSH 1,000 unit PRN PRN Administration Heparin Heparin Sodium (Porcine) 5,000 unit 06/17/17 22:26 Heparin - IVPUSH PRN PRN Heparin Heparin Sodium/Dextrose 25,000 units in 500 mls @ 20 mls/hr 06/17/17 22:30 08:42 Heparin Infusion - IVPB 1,100 units/hr TITR DAKSHA 22 mls/hr Protocol Titration 1,000 UNITS/HR Sodium Chloride 1,000 mls @ 125 mls/hr 06/21/17 12:15 06/22/17 12:56 1/2 Normal Saline IV Not Given ASDIR DAKSHA Mometasone Furoate 1 puff 06/19/17 22:00 06/21/17 23:27 Asmanex 220mcg - IH Not Given HS DAKSHA Nystatin 1 applic 06/18/17 10:00 06/22/17 10:32 Mycostatin Cream - TP 1 applic DAILY DAKSHA Administration Ondansetron HCl 4 mg 06/18/17 09:26 06/21/17 10:52 Zofran Injection IVPB 4 mg Q6H PRN Administration NAUSEA AND/OR VOMITING Oxycodone HCl 10 mg 06/20/17 21:00 06/22/17 10:40 Roxicodone - PO 10 mg Q6H PRN Administration PAIN LEVEL 4 - 6 Polyethylene Glycol 17 gm 06/22/17 22:00 Miralax (For Daily Use) - PO BID [facility] ASSESSMENT/PLAN: 46 y.o. 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 multiple differentials including: SE of control, endocarditis s/p dental surgery for dental infection, EBV or other viral syndrome, coagulopathy, PFO - TTE-- PASP 37 mmHg, no vegetations. LV normal. EF normal - heparin drip as per protocol, goal PTT 50-60 - pain control; continue oxycodone 10mg q4hr - zofran 4mg ivpb q6hr prn -cardio consulted for cardiac causes -Holter monitor ordered per cardio -Hyperocagulable workup in progress -EBV +, CMV+ #Transaminitis - given hypolucent area on CT a hepatic thrombosis is possible - continue to trend - avoid hepatotoxic medications - u/s without gallstones, no ductal dilation, hepatocellular disease with fatty liver -portal vein patent #constipation - miralax qd #asthma - continue flovent #Migraine - defer foirocet due to acetominophen for now, if it worsens will explore options for pain control with patient #dvt - on heparin drip #diet - regular Visit type - Emergency Visit Emergency Visit: Yes ED Registration Date: 06/17/17 Care time: The patient presented to the Emergency Department on the above date and was hospitalized for further evaluation of their emergent condition. - New Patient This patient is new to me today: No - Critical Care Critical Care patient: No
--- NOTE | 2017-06-22 15:15 | PN ---
Teaching Attending Note Name of Resident: Andre Delcid ATTENDING PHYSICIAN STATEMENT I saw and evaluated the patient. I reviewed the resident's note and discussed the case with the resident. I agree with the resident's findings and plan as documented. SUBJECTIVE: has RUQ pain,especially with breathing . No fever or chills . no SOB , no palpitations , no CP . has her period today OBJECTIVE: NAd CV: RRR, no MRG Lungs CLTA . Abd: soft, TTP in suprapubic area nd LUQ. no rebound tenderness or guarding . nl BS Ext: no edema or erythema or tenderness ASSESSMENT AND PLAN: 46 y/o lady with h/o Asthma and migraine who presented with LUQ pain and was found to have splenic infarct . 1- Acute splenic infarct . unknown etiology but could be due to splenomegaly in the setting of EBV infection. Unlikely endocarditis with spetic emboli as blood cx is neg to date . repeat pending . Unclear if pt is still hypercoagulable after discontinuing her OCP three months ago. No portal vein thrombosis on US . - cont heparin gtt. - will discuss with heme choice of oral AC, but probably will be coumadin as NOACS are not well studies in this condition - duration of AC to be determined - holter and ADRIEN as out pt - doubt RA although RF +. check CCP. - hypercoagulability w/u pending 2- Transaminitis : likely due to EBV infection in a back ground of fatty liver. -Hep serology neg , but missing Hep B core igM abs to detect acute hep B in window ( unlikely ) 3- 2 cm L ovarian cyst: pt made aware of need to f/u with [employer] dispo : HLOC pending w/u and bridging to coumadin if feasible
--- NOTE | 2017-06-22 16:45 | PATH ---
Surgical Pathology Report Patient Name: JOANN CHOW [facility]. Rec. #: [id number] /Age/Gender: 1970 (Age: 46) / F Account: [id number] Location: [facility] MED/SURG Taken: 06/21/2017 Received: 06/21/2017 Reported: 06/22/2017 Physicians: Marlene Massey M.D. Specimen(s) Received PERIPHERAL BLOOD Clinical History Left sided abdominal pain Final Diagnosis COMPREHENSIVE FLOW CYTOMETRY performed and interpreted at [place], [place] ([id number]) INTERPRETATION: Granulocytopenia with no discrete atypical immunophenotypic findings seen. PAROXYSMAL NOCTURNAL HEMOGLOBINURIA ASSAY BY FLOW performed and interpreted at [place], [place] ([id number]) INTERPRETATION: No phenotypic evidence of Paroxysmal Nocturnal Hemoglobulinuria (PNH). Comment: Additional molecular studies are pending. Findings will be reported separately. [facility] reports for details. Electronically Signed Ranjana Puri M.D. Addendum Reported: 06/24/2017 Addendum Diagnosis JAK2 (V617F) MUTATION ANALYSIS BY PCR performed and interpreted at [place], [place] ([id number]) shows the following: RESULTS: Only the wild-type JAK2 sequence was detected. INTERPRETATION: Negative for JAK2 (V617F) Mutation. See [facility] report ([id number]) for additional details. Ranjana Puri M.D. Addendum Reported: 06/28/2017 Addendum Diagnosis BCR-ABL Gene Rearrangement (IS) Analysis performed and interpreted at [facility] [place], [place] ([id number]) shows the following: RESULTS: Negative BCR/ABL Major breakpoints (b2a2 and b3a2): Not Detected BCR/ABL Minor breakpoint (e1a2): Not Detected INTERPRETATION: No BCR-ABL translocation was detected in this sample. See [facility] report ([id number]) for additional details. Ranjana Puri M.D. Gross Description Received are 3 green top tubes and 3 lavender top tubes of blood which are sent to [facility]. DL/06/21/2017 saudi/06/21/2017
--- NOTE | 2017-06-22 17:29 | PN ---
Progress Note (short form) - Note Progress Note: pt seen and examined chart reviewed pain persistent. EBV nuclear antigen positive. CMV PCR + PNH negative Cor: RSR, No murmurs, No gallops Lungs: Clear to P&A Abd: Soft, Normal bowel sounds, No organomegaly Ext:No significant edema Last Vital Signs Temp Pulse Resp BP Pulse Ox 98.3 F 107 H 20 111/62 96 06/22/17 17:27 06/22/17 17:27 06/22/17 17:27 06/22/17 17:27 06/22/17 09:00 CBC, BMP 06/22/17 06:49 06/22/17 06:49 Current Medications Generic Name Dose Route Start Last Admin Trade Name Freq PRN Reason Stop Dose Admin Docusate Sodium 100 mg 06/19/17 10:00 06/22/17 10:32 Colace - PO 100 mg DAILY DAKSHA Administration Heparin Sodium (Porcine) 1,000 unit 06/17/17 22:26 06/18/17 11:46 Heparin - IVPUSH 1,000 unit PRN PRN Administration Heparin Heparin Sodium (Porcine) 5,000 unit 06/17/17 22:26 Heparin - IVPUSH PRN PRN Heparin Heparin Sodium/Dextrose 25,000 units in 500 mls @ 20 mls/hr 06/17/17 22:30 08:42 Heparin Infusion - IVPB 1,100 units/hr TITR DAKSHA 22 mls/hr Protocol Titration 1,000 UNITS/HR Sodium Chloride 1,000 mls @ 125 mls/hr 06/21/17 12:15 06/22/17 12:56 1/2 Normal Saline IV Not Given ASDIR DAKSHA Mometasone Furoate 1 puff 06/19/17 22:00 06/21/17 23:27 Asmanex 220mcg - IH Not Given HS DAKSHA Nystatin 1 applic 06/18/17 10:00 06/22/17 10:32 Mycostatin Cream - TP 1 applic DAILY DAKSHA Administration Ondansetron HCl 4 mg 06/18/17 09:26 06/21/17 10:52 Zofran Injection IVPB 4 mg Q6H PRN Administration NAUSEA AND/OR VOMITING Oxycodone HCl 10 mg 06/20/17 21:00 06/22/17 10:40 Roxicodone - PO 10 mg Q6H PRN Administration PAIN LEVEL 4 - 6 Polyethylene Glycol 17 gm 06/22/17 22:00 Miralax (For Daily Use) - PO BID DAKSHA Warfarin Sodium 7.5 mg 06/22/17 18:00 Coumadin - PO 06/22/17 18:01 ONCE@1800 ONE Splenic infarct etiology ?infectious CMV PCR + , f/u with ID EBV Nuclear Ag + indicating past infection Appreciate Cardiology c/s to r./o cardio-embolic cause Hypercoag w/u pending GI w/u for OP Rx: for Now c/w 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
[2017-06-22] MEDS ORDERED: WARFARIN NA 7.5 MG TABLET (FP) PO ONE (18:00)
[2017-06-22] MEDS: MOMETASONE FUROATE 220 MCG/IH INHALER IH SCH (21:55)
[2017-06-23 00:11] LABS: SERUM IRON SATURATION 29 % (15-55); TOTAL IRON BINDING CAPACITY 328 ug/dL (250-450); UIBC 233 ug/dL (131-425)
[2017-06-23] MEDS: HEPARIN INFUSION - 25,000 UNITS/500 ML INFUS.BAG IVPB SCH ×2 (05:01→21:43)
--- NOTE | 2017-06-23 07:45 | PN ---
Physical Exam: SUBJECTIVE: Patient seen and examined No acute events overnight. Patient feeling increased chest tightness and right thigh pain that is new today. OBJECTIVE: Vital Signs Period Temp Pulse Resp BP Sys/[place] Pulse Ox Last 24 Hr 98.3 F-99.7 F 80-113 18-20 111-134/62-95 92-96 GENERAL: The patient is awake, alert, in no acute distress. HEAD: Normal with no signs of trauma. EYES: Extraocular movements intact, sclera anicteric, conjunctiva clear. No ptosis. ENT: Oropharynx clear without exudates, moist mucous membranes. no thrush. + left upper molar impacted tooth NECK: Trachea midline, full range of motion, supple. no lad, no thyromegaly LUNGS: Breath sounds equal, clear to auscultation bilaterally, no wheezes, no crackles, no accessory muscle use. HEART: Regular rate and rhythm, S1, S2 without murmur, rub or gallop. ABDOMEN: Soft, LUQ tenderness, nondistended, normoactive bowel sounds, no guarding, no rebound, no masses. EXTREMITIES: 2+ dp and radial b/l pulses, warm, well-perfused, no edema. MSK: right thigh tenderness NEUROLOGICAL: Cranial nerves II through XII grossly intact. Normal speech. facial symmetry PSYCH: Normal mood, normal affect. SKIN: Warm, dry, normal turgor, no rashes or lesions noted Laboratory Results - last 24 hr 06/19/17 06/19/17 06/22/17 07:24 07:24 06:49 WBC RBC Hgb Hct MCV MCH MCHC RDW Plt Count MPV Total Counted Neutrophils % Neutrophils % (Manual) Band Neutrophils % Lymphocytes % Lymphocytes % (Manual) Monocytes % (Manual) Metamyelocytes ESR Haptoglobin 137 PTT (Actin FS) 50.6 H Sodium Potassium Chloride Carbon Dioxide Anion Gap BUN Creatinine Creat Clearance w eGFR Glucose 97 Random Glucose Calcium Iron 95 TIBC 328 Iron Saturation 29 Total Bilirubin 0.3 GGT 780 H AST 226 H ALT 407 H Alkaline Phosphatase Liver Fibrosis Score 0.47 H Liver Fibrosis Stage F1-f2 C-Reactive Protein Total Protein Albumin Bnhpl-8-Updsjfuqmpdjm 197 Triglycerides 231 H Cholesterol 152 Apolipoprotein A-1 100 L Patient Height (cm) 64 Patient Weight (kg) 199 CSF IgG Interpretation CMV IgM Ab 215.0 H CMV DNA Qual PCR Positive H HIV 1&2 Antibody Screen HIV P24 Antigen 06/22/17 06/22/17 06/22/17 06:49 06:49 06:49 WBC RBC Hgb Hct MCV MCH MCHC RDW Plt Count MPV Total Counted Neutrophils % Neutrophils % (Manual) Band Neutrophils % Lymphocytes % Lymphocytes % (Manual) Monocytes % (Manual) Metamyelocytes ESR 64 H Haptoglobin PTT (Actin FS) Sodium 138 Potassium 3.7 Chloride 101 Carbon Dioxide 27 Anion Gap 10 BUN 5 L Creatinine 0.6 Creat Clearance w eGFR > 60 Glucose Random Glucose 95 Calcium 8.4 L Iron TIBC Iron Saturation Total Bilirubin 0.6 GGT AST 154 H ALT 365 H Alkaline Phosphatase 285 H Liver Fibrosis Score Liver Fibrosis Stage C-Reactive Protein 1.6 H Total Protein 7.1 Albumin 3.0 L Ltzds-4-Lytgulzivzlbv Triglycerides Cholesterol Apolipoprotein A-1 Patient Height (cm) Patient Weight (kg) CSF IgG Interpretation CMV IgM Ab CMV DNA Qual PCR HIV 1&2 Antibody Screen Negative HIV P24 Antigen Negative 06/22/17 06:49 WBC 9.9 RBC 4.20 Hgb 12.6 Hct 36.3 MCV 86.3 MCH 29.9 MCHC 34.6 RDW 14.2 Plt Count 191 MPV 8.4 Total Counted 100 Neutrophils % No Result Required. Neutrophils % (Manual) 43.0 D Band Neutrophils % 4.0 Lymphocytes % No Result Required. Lymphocytes % (Manual) 40.0 Monocytes % (Manual) 5 Metamyelocytes 1 D ESR Haptoglobin PTT (Actin FS) Sodium Potassium Chloride Carbon Dioxide Anion Gap BUN Creatinine Creat Clearance w eGFR Glucose Random Glucose Calcium Iron TIBC Iron Saturation Total Bilirubin GGT AST ALT Alkaline Phosphatase Liver Fibrosis Score Liver Fibrosis Stage C-Reactive Protein Total Protein Albumin Btvom-5-Sagofacidlejo Triglycerides Cholesterol Apolipoprotein A-1 Patient Height (cm) Patient Weight (kg) CSF IgG Interpretation CMV IgM Ab CMV DNA Qual PCR HIV 1&2 Antibody Screen HIV P24 Antigen Active Medications Generic Name Dose Route Start Last Admin Trade Name Freq PRN Reason Stop Dose Admin Docusate Sodium 100 mg 06/19/17 10:00 06/22/17 10:32 Colace - PO 100 mg DAILY DAKSHA Administration Heparin Sodium (Porcine) 1,000 unit 06/17/17 22:26 06/18/17 11:46 Heparin - IVPUSH 1,000 unit PRN PRN Administration Heparin Heparin Sodium (Porcine) 5,000 unit 06/17/17 22:26 Heparin - IVPUSH PRN PRN Heparin Heparin Sodium/Dextrose 25,000 units in 500 mls @ 20 mls/hr 06/17/17 22:30 05:01 Heparin Infusion - IVPB 1,100 units/hr TITR DAKSHA 22 mls/hr Protocol Administration 1,000 UNITS/HR Sodium Chloride 1,000 mls @ 125 mls/hr 06/21/17 12:15 06/22/17 12:56 1/2 Normal Saline IV Not Given ASDIR DAKSHA Mometasone Furoate 1 puff 06/19/17 22:00 06/22/17 21:55 Asmanex 220mcg - IH Not Given HS DAKSHA Nystatin 1 applic 06/18/17 10:00 06/22/17 10:32 Mycostatin Cream - TP 1 applic DAILY DAKSHA Administration Ondansetron HCl 4 mg 06/18/17 09:26 06/21/17 10:52 Zofran Injection IVPB 4 mg Q6H PRN Administration NAUSEA AND/OR VOMITING Oxycodone HCl 10 mg 06/20/17 21:00 06/22/17 21:55 Roxicodone - PO 10 mg Q6H PRN Administration PAIN LEVEL 4 - 6 Polyethylene Glycol 17 gm 06/22/17 22:00 06/22/17 21:55 Miralax (For Daily Use) - PO 17 gm BID DAKSHA Administration ASSESSMENT/PLAN: 46 y.o. 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 multiple differentials including: SE of control, endocarditis s/p dental surgery for dental infection, EBV or other viral syndrome, coagulopathy, PFO - TTE-- PASP 37 mmHg, no vegetations. LV normal. EF normal - heparin drip as per protocol, goal PTT 60-80. New protocol in place - pain control; continue oxycodone 10mg q4hr - zofran 4mg ivpb q6hr prn - Cardio consulted for cardiac causes -Holter monitor ordered per cardio, ADRIEN can be down outpt if needed -Hyperocagulable workup in progress -EBV +, CMV+ and IgM positive -Coumadin started, 5 mg given today @ 1800 -CCPp pending #Transaminitis - given hypolucent area on CT a hepatic thrombosis is possible - continue to trend - avoid hepatotoxic medications - u/s without gallstones, no ductal dilation, hepatocellular disease with fatty liver - portal vein patent - Hepatitis B core pending #Chest tightness -Will check EKG and CXR #Right thigh pain -Will order duplex to r/o DVT #constipation - miralax bid #asthma - continue flovent #FEN/GI -no ivf -wnl -regular diet #ppx -heparin drip Visit type - Emergency Visit Emergency Visit: Yes ED Registration Date: 06/17/17 Care time: The patient presented to the Emergency Department on the above date and was hospitalized for further evaluation of their emergent condition. - New Patient This patient is new to me today: No - Critical Care Critical Care patient: No
[2017-06-23 07:55] LABS: HEMATOCRIT 35.5 % (32.4-45.2); HEMOGLOBIN 12.1 GM/dL (10.7-15.3); MCH 29.8 pg (25.7-33.7); MCHC 34.2 g/dl (32.0-36.0); MEAN CELL VOLUME 87.1 fl (80-96); MEAN PLT VOLUME 8.4 fl (7.5-11.1); PLATELET COUNT 190 K/MM3 (134-434); RBC 4.08 M/mm3 (3.60-5.2); RDW 14.2 % (11.6-15.6); WHITE BLOOD COUNT 8.5 K/mm3 (4.0-10.0)
[2017-06-23 08:04] LABS: INR 1.23 (0.82-1.09); PROTHROMBIN TIME (PATIENT) 13.9 SEC (9.7-13.0)
[2017-06-23 08:51] LABS: ALBUMIN 2.7 g/dl (3.4-5.0); ANION GAP 7 (8-16); BILIRUBIN,TOTAL 0.4 mg/dL (0.2-1.0); BLOOD UREA NITROGEN 5 mg/dL (7-18); CALCIUM 7.8 mg/dL (8.5-10.1); CHLORIDE 105 mmol/L (98-107); CO2 27 mmol/L (21-32); CREATININE 0.5 mg/dL (0.55-1.02); GLUCOSE,RANDOM 93 mg/dL (74-106); POTASSIUM 3.6 mmol/L (3.5-5.1); SGOT/AST 105 U/L (15-37); SGPT/ALT 270 U/L (12-78); SODIUM 139 mmol/L (136-145)
[2017-06-23 08:52] LABS: ALK PHOS 270 U/L (45-117); TOT PROT 6.6 g/dl (6.4-8.2)
[2017-06-23] MEDS ORDERED: SODIUM CHLORIDE NASAL SPRAY 44 ML BOTTLE NS PRN (08:59)
[2017-06-23] MEDS: DOCUSATE SODIUM 100 MG CAPSULE (FP) PO SCH (09:14)
[2017-06-23] MEDS: POLYETHYLENE GLYCOL 3350 119 GM BTL PO SCH ×3 (09:14→21:44)
[2017-06-23] MEDS: NYSTATIN 100,000 UNIT/GM TOPICAL CREAM 15 GM TUBE TP SCH (09:15)
[2017-06-23] MEDS: SODIUM CHLORIDE 0.45% 1,000 ML IV SCH (09:15)
[2017-06-23 09:25] LABS: PLATELET ESTIMATE NORMAL
[2017-06-23] MEDS ORDERED: MAGNESIUM CITRATE 300 ML BOTTLE PO ONE (10:15)
--- NOTE | 2017-06-23 10:34 | PN ---
Progress Note, Physician History of Present Illness: LUQ pain improving. Tolerating diet. - Current Medication List Current Medications: Active Medications Docusate Sodium (Colace -) 100 mg PO DAILY [facility] Last Admin: 06/23/17 09:14 Dose: 100 mg Heparin Sodium (Porcine) (Heparin -) 1,000 unit IVPUSH PRN PRN PRN Reason: Heparin Last Admin: 06/18/17 11:46 Dose: 1,000 unit Heparin Sodium (Porcine) (Heparin -) 5,000 unit IVPUSH PRN PRN PRN Reason: Heparin Heparin Sodium/Dextrose (Heparin Infusion -) 25,000 units in 500 mls @ 20 mls/ hr IVPB TITR DAKSHA; 1,000 UNITS/HR PRN Reason: Protocol Last Admin: 06/23/17 05:01 Dose: 1,100 units/hr, 22 mls/hr Mometasone Furoate (Asmanex 220mcg -) 1 puff IH HS [facility] Last Admin: 06/22/17 21:55 Dose: Not Given Nystatin (Mycostatin Cream -) 1 applic TP DAILY [facility] Last Admin: 06/23/17 09:15 Dose: 1 applic Ondansetron HCl (Zofran Injection) 4 mg IVPB Q6H PRN PRN Reason: NAUSEA AND/OR VOMITING Last Admin: 06/21/17 10:52 Dose: 4 mg Oxycodone HCl (Roxicodone -) 10 mg PO Q6H PRN PRN Reason: PAIN LEVEL 4 - 6 Last Admin: 06/22/17 21:55 Dose: 10 mg Polyethylene Glycol (Miralax (For Daily Use) -) 17 gm PO BID [facility] Last Admin: 06/23/17 09:14 Dose: Not Given Sodium Chloride ([place] Nasal [place] -) 2 spray NS TID PRN PRN Reason: NASAL CONGESTION - Objective Vital Signs: Vital Signs Temperature 99 F 06/23/17 09:20 Pulse Rate 112 H 06/23/17 09:20 Respiratory Rate 20 06/23/17 09:20 Blood Pressure 136/73 06/23/17 09:20 O2 Sat by Pulse Oximetry (%) 92 L 06/22/17 21:00 Constitutional: Yes: No Distress, Calm Neck: Yes: Supple Cardiovascular: Yes: Regular Rate and Rhythm Respiratory: Yes: Regular, Diminished Gastrointestinal: Yes: Normal Bowel Sounds, Soft, Abdomen, Obese, Tenderness ( LUQ) Edema: No Labs: CBC, BMP 06/23/17 06:30 06/23/17 06:30 INR, PTT INR 1.23 (0.82-1.09) H 06/23/17 07:15 Problem List - Problems (1) Abnormal liver enzymes Code(s): R74.8 - ABNORMAL LEVELS OF OTHER SERUM ENZYMES (2) Splenic infarction Code(s): D73.5 - INFARCTION OF SPLEEN Assessment/Plan 1. Splenic infarction r/o cardioembolic source 2. 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 Heparin->Coumadin per INR, LFTs declining 2. Hypercoagulable w/u ongoing, avoid OCPs 3. F/u holter monitor, then event recorder to r/o PAF if above unrevealing 4. ADRIEN as outpatient to exclude ENRIQUETA thrombus
[2017-06-23] MEDS ORDERED: LORazepam 0.5 MG TABLET PO ONE (11:14)
[2017-06-23] MEDS ORDERED: HEPARIN NA (PORCINE) 5,000 UNITS/ML 1ML VIAL IVPUSH PRN ×7 (11:44→12:40)
[2017-06-23] MEDS ORDERED: HEPARIN INFUSION - 25,000 UNITS/500 ML INFUS.BAG IVPB SCH ×2 (12:00→12:45)
--- NOTE | 2017-06-23 12:05 | PN ---
Progress Note, Physician History of Present Illness: No acute events overnight. Complaints of constipation. EBV, CMV positive - Current Medication List Current Medications: Active Medications Docusate Sodium (Colace -) 100 mg PO DAILY [facility] Last Admin: 06/23/17 09:14 Dose: 100 mg Heparin Sodium (Porcine) (Heparin -) 7,200 unit 80 unit/kg (7200 unit) IVPUSH ONCE ONE Stop: 06/23/17 12:16 Heparin Sodium (Porcine) (Heparin -) 3,600 unit 40 unit/kg (3600 unit) IVPUSH PRN PRN PRN Reason: For aPTT 35 to 45 seconds Heparin Sodium (Porcine) (Heparin -) 7,200 unit 80 unit/kg (7200 unit) IVPUSH PRN PRN PRN Reason: aPTT <35 seconds Heparin Sodium/Dextrose (Heparin Infusion -) 25,000 units in 500 mls @ 32.577 mls/hr IVPB TITR DAKSHA; 18 UNITS/KG/HR PRN Reason: Protocol Mometasone Furoate (Asmanex 220mcg -) 1 puff IH HS [facility] Last Admin: 06/22/17 21:55 Dose: Not Given Nystatin (Mycostatin Cream -) 1 applic TP DAILY [facility] Last Admin: 06/23/17 09:15 Dose: 1 applic Ondansetron HCl (Zofran Injection) 4 mg IVPB Q6H PRN PRN Reason: NAUSEA AND/OR VOMITING Last Admin: 06/21/17 10:52 Dose: 4 mg Oxycodone HCl (Roxicodone -) 10 mg PO Q6H PRN PRN Reason: PAIN LEVEL 4 - 6 Last Admin: 06/22/17 21:55 Dose: 10 mg Polyethylene Glycol (Miralax (For Daily Use) -) 17 gm PO BID [facility] Last Admin: 06/23/17 11:47 Dose: 17 gm Sodium Chloride ([place] Nasal [place] -) 2 spray NS TID PRN PRN Reason: NASAL CONGESTION Warfarin Sodium (Coumadin -) 5 mg PO DAILY@1800 [facility] - Objective Vital Signs: Vital Signs Temperature 99 F 06/23/17 09:20 Pulse Rate 112 H 06/23/17 09:20 Respiratory Rate 20 06/23/17 09:20 Blood Pressure 136/73 06/23/17 09:20 O2 Sat by Pulse Oximetry (%) 92 L 06/22/17 21:00 Constitutional: Yes: Well Nourished, No Distress, Calm Eyes: No: Sclera Icterus Gastrointestinal: Yes: Normal Bowel Sounds, Soft. No: Melena, Tenderness, Vomiting Labs: CBC, BMP 06/23/17 06:30 06/23/17 06:30 INR, PTT INR 1.23 (0.82-1.09) H 06/23/17 07:15 Laboratory Last Values WBC 8.5 K/mm3 (4.0-10.0) 06/23/17 06:30 RBC 4.08 M/mm3 (3.60-5.2) 06/23/17 06:30 Hgb 12.1 GM/dL (10.7-15.3) 06/23/17 06:30 Hct 35.5 % (32.4-45.2) 06/23/17 06:30 MCV 87.1 fl (80-96) 06/23/17 06:30 MCH 29.8 pg (25.7-33.7) 06/23/17 06:30 MCHC 34.2 g/dl (32.0-36.0) 06/23/17 06:30 RDW 14.2 % (11.6-15.6) 06/23/17 06:30 Plt Count 190 K/MM3 (134-434) 06/23/17 06:30 MPV 8.4 fl (7.5-11.1) 06/23/17 06:30 Total Counted 100 06/22/17 06:49 Neutrophils % No Result Required. 06/23/17 06:30 Neutrophils % (Manual) 34.0 % (42.8-82.8) L D 06/23/17 06:30 Band Neutrophils % 2.0 % 06/23/17 06:30 Lymphocytes % No Result Required. 06/23/17 06:30 Lymphocytes % (Manual) 41.0 % (8-40) H 06/23/17 06:30 Monocytes % 9.3 % (3.8-10.2) 06/19/17 07:24 Monocytes % (Manual) 3 % (3.8-10.2) L 06/23/17 06:30 Eosinophils % 0.5 % (0-4.5) 06/19/17 07:24 Eosinophils % (Manual) 2.0 % (0-4.5) D 06/23/17 06:30 Basophils % 0.4 % (0-2.0) 06/19/17 07:24 Basophils % (Manual) 0.0 % (0-2.0) 06/23/17 06:30 Myelocytes % (Man) 0 % (0-2) 06/23/17 06:30 Promyelocytes % (Man) 0 % (0-2) 06/23/17 06:30 Blast Cells % (Manual) 0 % (0-0) 06/23/17 06:30 Nucleated RBC % 0 % (0-0) 06/23/17 06:30 Metamyelocytes 0 % (0-2) D 06/23/17 06:30 Platelet Estimate Normal 06/23/17 06:30 ESR 64 mm/hr (0-20) H 06/22/17 06:49 Haptoglobin 137 mg/dL (34-200) 06/19/17 07:24 PT with INR 13.90 SEC (9.7-13.0) H 06/23/17 07:15 INR 1.23 (0.82-1.09) H 06/23/17 07:15 PTT (Actin FS) 57.2 SECONDS (26.9-34.4) H 06/23/17 06:30 Protein C Activity 95 % (73-180) 06/19/17 07:24 Protein S Activity 60 % (63-140) L 06/19/17 07:24 Sodium 139 mmol/L (136-145) 06/23/17 06:30 Potassium 3.6 mmol/L (3.5-5.1) 06/23/17 06:30 Chloride 105 mmol/L (98-107) 06/23/17 06:30 Carbon Dioxide 27 mmol/L (21-32) 06/23/17 06:30 Anion Gap 7 (8-16) L 06/23/17 06:30 BUN 5 mg/dL (7-18) L 06/23/17 06:30 Creatinine 0.5 mg/dL (0.55-1.02) L 06/23/17 06:30 Creat Clearance w eGFR > 60 (>60) 06/23/17 06:30 Glucose 97 mg/dL (65-99) 06/19/17 07:24 Random Glucose 93 mg/dL (74-106) 06/23/17 06:30 Calcium 7.8 mg/dL (8.5-10.1) L 06/23/17 06:30 Iron 95 ug/dL (27-159) 06/19/17 07:24 TIBC 328 ug/dL (250-450) 06/19/17 07:24 Iron Saturation 29 % (15-55) 06/19/17 07:24 Ferritin 474.841 ng/ml (6.9-282.5) H 06/19/17 07:24 Total Bilirubin 0.4 mg/dL (0.2-1.0) D 06/23/17 06:30 Direct Bilirubin 0.3 mg/dL (0.0-0.2) H 06/21/17 06:15 GGT 780 IU/L (0-60) H 06/19/17 07:24 AST 105 U/L (15-37) H 06/23/17 06:30 ALT 270 U/L (12-78) H 06/23/17 06:30 Alkaline Phosphatase 270 U/L (45-117) H 06/23/17 06:30 Liver Fibrosis Score 0.47 (0.00-0.21) H 06/19/17 07:24 Liver Fibrosis Stage F1-f2 (.) 06/19/17 07:24 Troponin I < 0.02 ng/ml (0.00-0.05) 06/18/17 07:05 C-Reactive Protein 1.6 MG/DL (0.00-0.3) H 06/22/17 06:49 Total Protein 6.6 g/dl (6.4-8.2) 06/23/17 06:30 Total Protein (PEP) Cancelled 06/21/17 06:15 Albumin 2.7 g/dl (3.4-5.0) L 06/23/17 06:30 Albumin (PEP) Cancelled 06/21/17 06:15 Globulin Cancelled 06/21/17 06:15 Albumin/Globulin Ratio Cancelled 06/21/17 06:15 Rppgz-8-Epjdwqprt (%) Cancelled 06/21/17 06:15 Rfagc-8-Npsagqvmw (%) Cancelled 06/21/17 06:15 Qrcpx-1-Waltsfncunqyb 197 mg/dL (110-276) 06/19/17 07:24 Beta Globulins Cancelled 06/21/17 06:15 Beta Globulins (%) Cancelled 06/21/17 06:15 Gamma Globulins (%) Cancelled 06/21/17 06:15 M-Micheal % Cancelled 06/21/17 06:15 Triglycerides 231 mg/dL (0-149) H 06/19/17 07:24 Cholesterol 152 mg/dL (100-199) 06/19/17 07:24 Apolipoprotein A-1 100 mg/dL (116-209) L 06/19/17 07:24 Total Amylase 31 U/L (25-115) 06/18/17 07:05 Lipase 74 U/L (73-393) 06/18/17 07:05 TSH 3.30 uIU/ml (0.358-3.74) 06/21/17 06:15 Patient Height (cm) 64 in (.) 06/19/17 07:24 Patient Weight (kg) 199 LBS (.) 06/19/17 07:24 Urine Color Yellow 06/17/17 16:13 Urine Appearance Slcloudy 06/17/17 16:13 Urine pH 5.0 (5.0-8.0) 06/17/17 16:13 Ur Specific [place] 1.013 (1.001-1.035) 06/17/17 16:13 Urine Protein Negative (NEGATIVE) 06/17/17 16:13 Urine Glucose (UA) Negative (NEGATIVE) 06/17/17 16:13 Urine Ketones Negative (NEGATIVE) 06/17/17 16:13 Urine Blood 1+ (NEGATIVE) H 06/17/17 16:13 Urine Nitrite Negative (NEGATIVE) 06/17/17 16:13 Urine Bilirubin Negative (<2.0 mg/dL) 06/17/17 16:13 Urine Urobilinogen 2.0 mg/dL (0.2-1.0) H 06/17/17 16:13 Ur Leukocyte Esterase Negative (NEGATIVE) 06/17/17 16:13 Urine WBC (Auto) 3 /hpf (3-5) 06/17/17 16:13 Urine RBC (Auto) 4 /hpf (0-3) 06/17/17 16:13 Ur Epithelial Cells Moderate /HPF (FEW) 06/17/17 16:13 Urine Bacteria Rare /hpf (NONE SEEN) 06/17/17 16:13 Urine Mucus Rare 06/17/17 16:13 Urine HCG, Qual Negative 06/17/17 16:13 CSF IgG Interpretation (.) 06/19/17 07:24 CLARISSA M-Micheal Cancelled 06/21/17 06:15 Rheumatoid Factor 22.3 IU/mL (0-15) H 06/21/17 06:15 DARLEEN Screen Negative (.) 06/19/17 07:24 Smooth Musc &PASTRY DECORATOR Intrp 17 Units (0-19) 06/19/17 07:24 CMV IgM Ab 215.0 AU/mL (0.0-29.9) H 06/19/17 07:24 CMV DNA Qual PCR Positive (Negative) H 06/19/17 07:24 EBV Nuclear Antigen >600.0 U/mL (0.0-17.9) H 06/19/17 07:24 Hep A IgM Ab Confirm Negative (Negative) 06/18/17 07:05 Hepatitis A Ab Total Positive (Negative) H 06/18/17 07:05 Hep Bs Antigen Negative (Negative) 06/18/17 07:05 Hep Bs Antibody Reactive (.) 06/18/17 07:05 Hep B Core Total Ab Negative (Negative) 06/18/17 07:05 Hep C Ab Diagnostic <0.1 s/co ratio (0.0-0.9) 06/18/17 09:35 Liver Fibrosis Interp (.) 06/18/17 09:35 HIV 1&2 Antibody Screen Negative 06/22/17 06:49 HIV P24 Antigen Negative 06/22/17 06:49 Ref Test Comments Cancelled 06/21/17 06:15 Blood Type O NEGATIVE 06/17/17 23:39 Antibody Screen Negative 06/17/17 23:39 Problem List - Problems (1) Abnormal liver enzymes Code(s): R74.8 - ABNORMAL LEVELS OF OTHER SERUM ENZYMES Assessment/Plan 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 Workup so far is positive EBV and CMV. Given the recent infection and antibiotic use, drug- induced liver injury may also play a role. Consider ID consult to comment on EBV and CMV findings.
[2017-06-23] MEDS ORDERED: HEPARIN NA (PORCINE) 5,000 UNITS/ML 1ML VIAL IVPUSH ONE ×2 (12:15→12:40)
[2017-06-23] MEDS ORDERED: HEPARIN - 25,000 UNIT in SODIUM CHLORIDE 495 ML IV SCH (12:30)
--- NOTE | 2017-06-23 13:01 | EKG ---
Test Reason : Blood Pressure : / mmHG Vent. Rate : 101 BPM Atrial Rate : 101 BPM P-R Int : 134 ms QRS Dur : 082 ms QT Int : 344 ms P-R-T Axes : 033 013 013 degrees QTc Int : 446 ms SINUS TACHYCARDIA OTHERWISE NORMAL ECG WHEN COMPARED WITH ECG OF 19-JUN-2017 14:03, NO SIGNIFICANT CHANGE WAS FOUND Confirmed by LIVE GARCIA MD ([id number]) on 06/23/2017 1:00:46 PM Referred By: NGHIA LAWSON Confirmed By:LIVE GARCIA MD
--- NOTE | 2017-06-23 13:06 | PN ---
Teaching Attending Note Name of Resident: Soren Wyatt ATTENDING PHYSICIAN STATEMENT I saw and evaluated the patient. I reviewed the resident's note and discussed the case with the resident. I agree with the resident's findings and plan as documented. SUBJECTIVE: Abd pain is better today. felt a little SOb and tight in her chest this am. has R thigh pain. OBJECTIVE: NAD CV: RRR, no MRG . no JVD. Lungs: CTAB . Abd: soft, TTP in suprapubic area and LUQ. no rebound tenderness or guarding . nl BS Ext: no edema or erythema . Tenderness over R lateral thigh ASSESSMENT AND PLAN: 46 y/o lady with h/o Asthma and migraine who presented with LUQ pain and was found to have splenic infarct . 1- Acute splenic infarct. unknown etiology yet but can't r/o thrombosis. - cont heparin gtt. bridge to coumadin - duration of AC to be determined - holter and ADRIEN as out pt - doubt RA although RF +. CCP pending - hypercoagulability w/u pending 2- Transaminitis : improved - EBV nuclear Ag + . check [place] spot as it indicates disease in first few weeks . unfortunately we don't have EBV capsid Ag - CMV PCr and IgM +. - await ID input 3- SOB. probabaly fluid overload. - check cxray - stop IVF - due to pain and tenderness over the R thigh , will get US . already on AC - check EKG 4- 2 cm L ovarian cyst: f/u as out pt dispo : HLOC pending w/u and bridging to coumadin
--- NOTE | 2017-06-23 13:16 | PN ---
Progress Note, Physician History of Present Illness: Awake, alert OOB in chair Still with L abdominal pain but improved Low grade temp + EBV and CMV serologies noted - Current Medication List Current Medications: Active Medications Docusate Sodium (Colace -) 100 mg PO DAILY [facility] Last Admin: 06/23/17 09:14 Dose: 100 mg Heparin Sodium (Porcine) (Heparin -) 3,600 unit 40 unit/kg (3600 unit) IVPUSH PRN PRN PRN Reason: For aPTT 35 to 45 seconds Heparin Sodium (Porcine) (Heparin -) 7,200 unit 80 unit/kg (7200 unit) IVPUSH PRN PRN PRN Reason: aPTT <35 seconds Heparin Sodium/Dextrose (Heparin Infusion -) 25,000 units in 500 mls @ 32.495 mls/hr IVPB TITR DAKSHA; 18 UNITS/KG/HR PRN Reason: Protocol Mometasone Furoate (Asmanex 220mcg -) 1 puff IH HS [facility] Last Admin: 06/22/17 21:55 Dose: Not Given Nystatin (Mycostatin Cream -) 1 applic TP DAILY [facility] Last Admin: 06/23/17 09:15 Dose: 1 applic Ondansetron HCl (Zofran Injection) 4 mg IVPB Q6H PRN PRN Reason: NAUSEA AND/OR VOMITING Last Admin: 06/21/17 10:52 Dose: 4 mg Oxycodone HCl (Roxicodone -) 10 mg PO Q6H PRN PRN Reason: PAIN LEVEL 4 - 6 Last Admin: 06/22/17 21:55 Dose: 10 mg Polyethylene Glycol (Miralax (For Daily Use) -) 17 gm PO BID [facility] Last Admin: 06/23/17 11:47 Dose: 17 gm Sodium Chloride ([place] Nasal [place] -) 2 spray NS TID PRN PRN Reason: NASAL CONGESTION Warfarin Sodium (Coumadin -) 5 mg PO DAILY@1800 [facility] - Objective Vital Signs: Vital Signs Temperature 99 F 06/23/17 09:20 Pulse Rate 112 H 06/23/17 09:20 Respiratory Rate 20 06/23/17 09:20 Blood Pressure 136/73 06/23/17 09:20 O2 Sat by Pulse Oximetry (%) 93 L 06/23/17 09:00 Constitutional: Yes: No Distress Eyes: Yes: Conjunctiva Clear Cardiovascular: Yes: Regular Rate and Rhythm, S1, S2 Respiratory: Yes: CTA Bilaterally Gastrointestinal: Yes: Normal Bowel Sounds, Soft, Tenderness (+ L paraumbilical tenderness) Labs: CBC, BMP 06/23/17 06:30 06/23/17 06:30 INR, PTT INR 1.23 (0.82-1.09) H 06/23/17 07:15 Assessment/Plan 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 HACEK) No antibiotic therapy
[2017-06-23 14:16] LABS: DRVVT - 40.8 sec (0.0-47.0)
[2017-06-23] MEDS: WARFARIN NA 5 MG TABLET (UD) PO SCH (17:51)
[2017-06-23] MEDS ORDERED: PT OWN MED DRAWER 7, Y5N ONE (18:13)
[2017-06-23] MEDS: oxyCODONE HCL 5 MG TABLET PO PRN (18:16)
[2017-06-23] MEDS ORDERED: FLUTICASONE PROP 0.05% 16 GM NASAL SPRAY NS PRN (20:30)
[2017-06-23] MEDS: MOMETASONE FUROATE 220 MCG/IH INHALER IH SCH (21:44)
[2017-06-24 00:12] LABS: FREE KAPPA,SERUM 23.2 mg/L (3.3-19.4)
[2017-06-24 00:12] LABS: PARV B19 IGG 2.5 index (0.0-0.8); PARV B19 IGM 0.2 index (0.0-0.8)
[2017-06-24] MEDS: oxyCODONE HCL 5 MG TABLET PO PRN ×2 (00:32→09:18)
[2017-06-24] MEDS: ONDANSETRON 4 MG/2 ML VIAL IVPB PRN ×2 (00:33→12:49)
[2017-06-24] MEDS: HEPARIN INFUSION - 25,000 UNITS/500 ML INFUS.BAG IVPB SCH (06:56)
[2017-06-24 07:22] LABS: MCH 29.7 pg (25.7-33.7); MCHC 34.2 g/dl (32.0-36.0); MEAN CELL VOLUME 86.9 fl (80-96); MEAN PLT VOLUME 8.7 fl (7.5-11.1); PLATELET COUNT 198 K/MM3 (134-434); RBC 4.03 M/mm3 (3.60-5.2); RDW 14.4 % (11.6-15.6); WHITE BLOOD COUNT 10.2 K/mm3 (4.0-10.0)
[2017-06-24 07:32] LABS: INR 1.35 (0.82-1.09); PROTHROMBIN TIME (PATIENT) 15.3 SEC (9.7-13.0)
[2017-06-24 07:38] LABS: CHLORIDE 105 mmol/L (98-107); SODIUM 138 mmol/L (136-145)
[2017-06-24 07:46] LABS: ALBUMIN 2.8 g/dl (3.4-5.0); ALK PHOS 274 U/L (45-117); ANION GAP 6 (8-16); BILIRUBIN,TOTAL 0.4 mg/dL (0.2-1.0); BLOOD UREA NITROGEN 7 mg/dL (7-18); CO2 27 mmol/L (21-32); CREATININE 0.5 mg/dL (0.55-1.02); GLUCOSE,RANDOM 95 mg/dL (74-106); SGOT/AST 98 U/L (15-37); SGPT/ALT 235 U/L (12-78)
[2017-06-24 08:57] LABS: PLATELET ESTIMATE NORMAL
[2017-06-24] MEDS: DOCUSATE SODIUM 100 MG CAPSULE (FP) PO SCH (09:19)
[2017-06-24] MEDS: POLYETHYLENE GLYCOL 3350 119 GM BTL PO SCH ×2 (09:19→21:44)
[2017-06-24] MEDS: NYSTATIN 100,000 UNIT/GM TOPICAL CREAM 15 GM TUBE TP SCH (09:20)
--- NOTE | 2017-06-24 13:52 | PN ---
Physical Exam: SUBJECTIVE: Patient seen and examined No acute events overnight. Patient continues to have abdominal pain but has improved. Denies SOB OBJECTIVE: Vital Signs Period Temp Pulse Resp BP Sys/Gauthier Pulse Ox Last 24 Hr 98 F-99.4 F 78-111 18-20 100-131/60-95 97 GENERAL: The patient is awake, alert, in no acute distress. HEAD: Normal with no signs of trauma. EYES: Extraocular movements intact, sclera anicteric, conjunctiva clear. No ptosis. ENT: Oropharynx clear without exudates, moist mucous membranes. no thrush. + left upper molar impacted tooth NECK: Trachea midline, full range of motion, supple. no lad, no thyromegaly LUNGS: Breath sounds equal, clear to auscultation bilaterally, no wheezes, no crackles, no accessory muscle use. HEART: Regular rate and rhythm, S1, S2 without murmur, rub or gallop. ABDOMEN: Soft, LLQ/suprapubic tenderness, nondistended, normoactive bowel sounds , no guarding, no rebound, no masses. EXTREMITIES: 2+ dp and radial b/l pulses, warm, well-perfused, no edema. NEUROLOGICAL: Cranial nerves II through XII grossly intact. Normal speech. facial symmetry PSYCH: Normal mood, normal affect. SKIN: Warm, dry, normal turgor, no rashes or lesions noted Laboratory Results - last 24 hr 06/19/17 06/21/17 06/21/17 07:24 06:15 06:15 WBC RBC Hgb Hct MCV MCH MCHC RDW Plt Count MPV Neutrophils % Neutrophils % (Manual) Band Neutrophils % Lymphocytes % Lymphocytes % (Manual) Monocytes % (Manual) Eosinophils % (Manual) Basophils % (Manual) Myelocytes % (Man) Promyelocytes % (Man) Blast Cells % (Manual) Nucleated RBC % Metamyelocytes Platelet Estimate PT with INR INR PTT (Actin FS) LA PTT Baseline dRVVT Confirm Interp Sodium Potassium Chloride Carbon Dioxide Anion Gap BUN Creatinine Creat Clearance w eGFR Random Glucose Calcium Total Bilirubin AST ALT Alkaline Phosphatase Total Protein Total Protein (PEP) Cancelled Albumin Albumin (PEP) Cancelled Globulin Cancelled Albumin/Globulin Ratio Cancelled [place]sc[place]-5-Keczzmqvq (%) Cancelled Bikzu-1-Teszeekot (%) Cancelled Beta Globulins Cancelled 1.0 Beta Globulins (%) Cancelled Gamma Globulins (%) Cancelled M-Micheal % Cancelled Stool Occult Blood CLARISSA & SPEP Interp Total Protein (CLARSISA) 7.1 Albumin (CLARISSA) 3.1 Albumin/Globulin (CLARISSA) 0.8 Imakc-5-Lfdbmztxr CLARISSA 0.3 Fqihp-1-Uutnfirvt CLARISSA 0.8 Gamma Globulins (CLARISSA) 1.8 CLARISSA M-Micheal Cancelled 0.9 H CLARISSA Comments IEP IgG 1153 IEP IgA 448 H IEP IgM 458 H Anti-Cardiolipin IgG Ab Anti-Cardiolipin IgA Ab Anti-Cardiolipin IgM Ab Free [place] LC, Quant 23.2 H Free Lambda LC, Quant 66.6 H Free [place]/Lambda Ratio 0.35 Hep B Core IgM Ab Parvovirus B19 IgG Ab 2.5 H Parvovirus B19 IgM Ab 0.2 Ref Test Comments Cancelled 06/21/17 06/23/17 06/23/17 09:05 06:30 17:00 WBC RBC Hgb Hct MCV MCH MCHC RDW Plt Count MPV Neutrophils % Neutrophils % (Manual) Band Neutrophils % Lymphocytes % Lymphocytes % (Manual) Monocytes % (Manual) Eosinophils % (Manual) Basophils % (Manual) Myelocytes % (Man) Promyelocytes % (Man) Blast Cells % (Manual) Nucleated RBC % Metamyelocytes Platelet Estimate PT with INR INR PTT (Actin FS) 45.6 H LA PTT Baseline 45.2 dRVVT Confirm Interp 40.8 Sodium Potassium Chloride Carbon Dioxide Anion Gap BUN Creatinine Creat Clearance w eGFR Random Glucose Calcium Total Bilirubin AST ALT Alkaline Phosphatase Total Protein Total Protein (PEP) Albumin Albumin (PEP) Globulin Albumin/Globulin Ratio Ahhzq-8-Riwqmrspw (%) Kyxey-0-Sujrpamvk (%) Beta Globulins Beta Globulins (%) Gamma Globulins (%) M-Micheal % Stool Occult Blood CLARISSA & SPEP Interp Total Protein (CLARISSA) Albumin (CLARISSA) Albumin/Globulin (CLARISSA) Xjsxw-5-Haivfnzsc CLARISSA Yyyve-9-Oaufltyvk CLARISSA Gamma Globulins (CLARISSA) CLARISSA M-Micheal CLARISSA Comments IEP IgG IEP IgA IEP IgM Anti-Cardiolipin IgG Ab <9 Anti-Cardiolipin IgA Ab 24 H Anti-Cardiolipin IgM Ab 20 H Free [place] LC, Quant Free Lambda LC, Quant [place]/Lambda Ratio Hep B Core IgM Ab Negative Parvovirus B19 IgG Ab Parvovirus B19 IgM Ab Ref Test Comments 06/23/17 06/23/17 06/24/17 20:05 23:10 05:35 WBC 10.2 H RBC 4.03 Hgb 12.0 Hct 35.0 MCV 86.9 MCH 29.7 MCHC 34.2 RDW 14.4 Plt Count 198 MPV 8.7 Neutrophils % No Result Required. Neutrophils % (Manual) 41.0 L D Band Neutrophils % 0.0 Lymphocytes % No Result Required. Lymphocytes % (Manual) 47.0 H Monocytes % (Manual) 3 L Eosinophils % (Manual) 1.0 Basophils % (Manual) 0.0 Myelocytes % (Man) 0 Promyelocytes % (Man) 0 Blast Cells % (Manual) 0 Nucleated RBC % 0 Metamyelocytes 0 Platelet Estimate Normal PT with INR INR PTT (Actin FS) 53.0 H LA PTT Baseline dRVVT Confirm Interp Sodium Potassium Chloride Carbon Dioxide Anion Gap BUN Creatinine Creat Clearance w eGFR Random Glucose Calcium Total Bilirubin AST ALT Alkaline Phosphatase Total Protein Total Protein (PEP) Albumin Albumin (PEP) Globulin Albumin/Globulin Ratio Crqwn-3-Jpycbvslh (%) Oertx-3-Iwkwfdhdn (%) Beta Globulins Beta Globulins (%) Gamma Globulins (%) M-Micheal % Stool Occult Blood Negative CLARISSA & SPEP Interp Total Protein (CLARISSA) Albumin (CLARISSA) Albumin/Globulin (CLARISSA) Arfgd-3-Jcqcmwabi CLARISSA Htgkx-7-Xgiyfhbaa CLARISSA Gamma Globulins (CLARISSA) CLARISSA M-Micheal CLARISSA Comments IEP IgG IEP IgA IEP IgM Anti-Cardiolipin IgG Ab Anti-Cardiolipin IgA Ab Anti-Cardiolipin IgM Ab Free [place] LC, Quant Free Lambda LC, Quant Free [place]/Lambda Ratio Hep B Core IgM Ab Parvovirus B19 IgG Ab Parvovirus B19 IgM Ab Ref Test Comments 06/24/17 06/24/17 06/24/17 05:35 05:35 05:35 WBC RBC Hgb Hct MCV MCH MCHC RDW Plt Count MPV Neutrophils % Neutrophils % (Manual) Band Neutrophils % Lymphocytes % Lymphocytes % (Manual) Monocytes % (Manual) Eosinophils % (Manual) Basophils % (Manual) Myelocytes % (Man) Promyelocytes % (Man) Blast Cells % (Manual) Nucleated RBC % Metamyelocytes Platelet Estimate PT with INR 15.30 H INR 1.35 H PTT (Actin FS) 50.2 H LA PTT Baseline dRVVT Confirm Interp Sodium 138 Potassium 4.0 Chloride 105 Carbon Dioxide 27 Anion Gap 6 L BUN 7 Creatinine 0.5 L Creat Clearance w eGFR > 60 Random Glucose 95 Calcium 8.0 L Total Bilirubin 0.4 AST 98 H ALT 235 H Alkaline Phosphatase 274 H Total Protein 7.0 Total Protein (PEP) Albumin 2.8 L Albumin (PEP) Globulin Albumin/Globulin Ratio Nlorv-5-Zuorxuvep (%) Swtel-2-Zlrlzzrnu (%) Beta Globulins Beta Globulins (%) Gamma Globulins (%) M-Micheal % Stool Occult Blood CLARISSA & SPEP Interp Total Protein (CLARISSA) Albumin (CLARISSA) Albumin/Globulin (CLARISSA) Tcwze-0-Cnyszrwdg CLARISSA Tcjae-4-Iuazhguzv CLARISSA Gamma Globulins (CLARISSA) CLARISSA M-Micheal CLARISSA Comments IEP IgG IEP IgA IEP IgM Anti-Cardiolipin IgG Ab Anti-Cardiolipin IgA Ab Anti-Cardiolipin IgM Ab Free [place] LC, Quant Free Lambda LC, Quant Free [place]/Lambda Ratio Hep B Core IgM Ab Parvovirus B19 IgG Ab Parvovirus B19 IgM Ab Ref Test Comments 06/24/17 12:05 WBC RBC Hgb Hct MCV MCH MCHC RDW Plt Count MPV Neutrophils % Neutrophils % (Manual) Band Neutrophils % Lymphocytes % Lymphocytes % (Manual) Monocytes % (Manual) Eosinophils % (Manual) Basophils % (Manual) Myelocytes % (Man) Promyelocytes % (Man) Blast Cells % (Manual) Nucleated RBC % Metamyelocytes Platelet Estimate PT with INR INR PTT (Actin FS) 60.3 H LA PTT Baseline dRVVT Confirm Interp Sodium Potassium Chloride Carbon Dioxide Anion Gap BUN Creatinine Creat Clearance w eGFR Random Glucose Calcium Total Bilirubin AST ALT Alkaline Phosphatase Total Protein Total Protein (PEP) Albumin Albumin (PEP) Globulin Albumin/Globulin Ratio Poyeq-6-Arfurcesk (%) Qcdzd-1-Zsrtceoap (%) Beta Globulins Beta Globulins (%) Gamma Globulins (%) M-Micheal % Stool Occult Blood CLARISSA & SPEP Interp Total Protein (CLARISSA) Albumin (CLARISSA) Albumin/Globulin (CLARISSA) Lxkgp-2-Vzrhetyup CLARISSA Ktdpm-4-Bhcemaccv CLARISSA Gamma Globulins (CLARISSA) CLARISSA M-Micheal CLARISSA Comments IEP IgG IEP IgA IEP IgM Anti-Cardiolipin IgG Ab Anti-Cardiolipin IgA Ab Anti-Cardiolipin IgM Ab Free [place] LC, Quant Free Lambda LC, Quant Free [place]/Lambda Ratio Hep B Core IgM Ab Parvovirus B19 IgG Ab Parvovirus B19 IgM Ab Ref Test Comments Active Medications Generic Name Dose Route Start Last Admin Trade Name Freq PRN Reason Stop Dose Admin Docusate Sodium 100 mg 06/19/17 10:00 06/24/17 09:19 Colace - PO 100 mg DAILY DAKSHA Administration Fluticasone Propionate 2 spray 06/23/17 20:30 Flonase - NS DAILY PRN Congestion Heparin Sodium (Porcine) 3,600 unit 06/23/17 12:40 Heparin - 40 unit/kg (3600 unit) IVPUSH PRN PRN For aPTT 35 to 45 seconds Heparin Sodium (Porcine) 7,200 unit 06/23/17 12:40 Heparin - 80 unit/kg (7200 unit) IVPUSH PRN PRN aPTT <35 seconds Heparin Sodium/Dextrose 25,000 units in 500 mls @ 32.495 mls/hr 06/23/17 20: 00 06/24/17 06:56 Heparin Infusion - IVPB 12.18 units/kg/hr TITR DAKSHA 22 mls/hr Protocol Administration 18 UNITS/KG/HR Mometasone Furoate 1 puff 06/19/17 22:00 06/23/17 21:44 Asmanex 220mcg - IH 1 puff HS DAKSHA Administration Nystatin 1 applic 06/18/17 10:00 06/24/17 09:20 Mycostatin Cream - TP 1 applic DAILY DAKSHA Administration Ondansetron HCl 4 mg 06/18/17 09:26 06/24/17 12:49 Zofran Injection IVPB 4 mg Q6H PRN Administration NAUSEA AND/OR VOMITING Oxycodone HCl 10 mg 06/20/17 21:00 06/24/17 09:18 Roxicodone - PO 10 mg Q6H PRN Administration PAIN LEVEL 4 - 6 Polyethylene Glycol 17 gm 06/22/17 22:00 06/24/17 09:19 Miralax (For Daily Use) - PO 17 gm BID DAKSHA Administration Sodium Chloride 2 spray 06/23/17 08:59 06/23/17 21:43 [place] Nasal [place] - NS 2 spray TID PRN Administration NASAL CONGESTION Warfarin Sodium 5 mg 06/23/17 18:00 06/23/17 17:51 Coumadin - PO 5 mg DAILY@1800 DAKSHA Administration ASSESSMENT/PLAN: 46 y.o. 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 multiple differentials including: SE of control, endocarditis s/p dental surgery for dental infection, EBV or other viral syndrome, coagulopathy, PFO - TTE-- PASP 37 mmHg, no vegetations. LV normal. EF normal - heparin drip as per protocol, goal PTT 50-60 - pain control; continue oxycodone 10mg q4hr - zofran 4mg ivpb q6hr prn -cardio consulted for cardiac causes -Holter monitor ordered per cardio -Hyperocagulable workup in progress -EBV +, CMV+ #Transaminitis - given hypolucent area on CT a hepatic thrombosis is possible - continue to trend - avoid hepatotoxic medications - u/s without gallstones, no ductal dilation, hepatocellular disease with fatty liver -portal vein patent #constipation - miralax qd #asthma - continue flovent #Migraine - defer foirocet due to acetominophen for now, if it worsens will explore options for pain control with patient #dvt - on heparin drip #diet - regular Visit type - Emergency Visit Emergency Visit: Yes ED Registration Date: 06/17/17 Care time: The patient presented to the Emergency Department on the above date and was hospitalized for further evaluation of their emergent condition. - New Patient This patient is new to me today: No - Critical Care Critical Care patient: No
[2017-06-24 14:14] LABS: HGB SOLUBILITY Negative (Negative); Hgb A 97.5 % (96.4-98.8); Hgb C 0 % (0.0); Hgb F 0 % (0.0-2.0); Hgb S 0 % (0.0)
--- NOTE | 2017-06-24 15:27 | PN ---
Progress Note (short form) - Note Progress Note: Patient seen and examined Complains of pain LUQ secondary to splenic infarcts Complains of constipation Bridging heparin to coumadin Last Vital Signs Temp Pulse Resp BP Pulse Ox 99.4 F 91 H 20 102/80 93 L 06/24/17 09:12 06/24/17 09:12 06/24/17 09:12 06/24/17 09:12 06/24/17 09:00 HEENT: [place], EOM Intact Oropharynx: No thrush, No mucositis Cor: RSR, No murmurs, No gallops Lungs: Clear to P&A Abd: Soft, Normal bowel sounds, No organomegaly Ext:No significant edema Skin: No rashes, Integument intact CBC, BMP 06/24/17 05:35 06/24/17 05:35 Current Medications Generic Name Dose Route Start Last Admin Trade Name Freq PRN Reason Stop Dose Admin Docusate Sodium 100 mg 06/19/17 10:00 06/24/17 09:19 Colace - PO 100 mg DAILY DAKSHA Administration Fluticasone Propionate 2 spray 06/23/17 20:30 Flonase - NS DAILY PRN Congestion Heparin Sodium (Porcine) 3,600 unit 06/23/17 12:40 Heparin - 40 unit/kg (3600 unit) IVPUSH PRN PRN For aPTT 35 to 45 seconds Heparin Sodium (Porcine) 7,200 unit 06/23/17 12:40 Heparin - 80 unit/kg (7200 unit) IVPUSH PRN PRN aPTT <35 seconds Heparin Sodium/Dextrose 25,000 units in 500 mls @ 32.495 mls/hr 06/23/17 20: 00 06/24/17 06:56 Heparin Infusion - IVPB 12.18 units/kg/hr TITR DAKSHA 22 mls/hr Protocol Administration 18 UNITS/KG/HR Mometasone Furoate 1 puff 06/19/17 22:00 06/23/17 21:44 Asmanex 220mcg - IH 1 puff HS DAKSHA Administration Nystatin 1 applic 06/18/17 10:00 06/24/17 09:20 Mycostatin Cream - TP 1 applic DAILY DAKSHA Administration Ondansetron HCl 4 mg 06/18/17 09:26 06/24/17 12:49 Zofran Injection IVPB 4 mg Q6H PRN Administration NAUSEA AND/OR VOMITING Oxycodone HCl 10 mg 06/20/17 21:00 06/24/17 09:18 Roxicodone - PO 10 mg Q6H PRN Administration PAIN LEVEL 4 - 6 Polyethylene Glycol 17 gm 06/22/17 22:00 06/24/17 09:19 Miralax (For Daily Use) - PO 17 gm BID DAKSHA Administration Sodium Chloride 2 spray 06/23/17 08:59 06/23/17 21:43 [place] Nasal [place] - NS 2 spray TID PRN Administration NASAL CONGESTION Warfarin Sodium 5 mg 06/23/17 18:00 06/23/17 17:51 Coumadin - PO 5 mg DAILY@1800 DAKSHA Administration Impression : Splenic Infarcts Bridging heparin to coumadin + EBV nuclear antigen Abnormal LFT's "M" spike Hyperglobulinemia Mildly elevated anticardiolipin IgA and IgM Low normal Protein S Plan: Bridging hepain to coumadin Await thrombophilia work up Low Protein S can be seen with liver disease and on heparin therapy - so result is not helpful Mild elevation of IgM and IgA anticardiolipin_ these will have to be repeated in 12 weeks to demonstrate reproducibility . In addition, it is not clear that the IgA anticardiolipin is a risk factor. Free kappa/free lambda light chain ratio is normal in serum. Need to check urine immunofixaation and free kappa/free lambda light chains in urine Agree [place] spot test might be of value
[2017-06-24] MEDS: WARFARIN NA 5 MG TABLET (UD) PO SCH (17:30)
[2017-06-24] MEDS ORDERED: LORazepam 0.5 MG TABLET PO ONE (19:04)
--- NOTE | 2017-06-24 19:17 | PN ---
Teaching Attending Note Name of Resident: Andre Delcid ATTENDING PHYSICIAN STATEMENT I saw and evaluated the patient. I reviewed the resident's note and discussed the case with the resident. I agree with the resident's findings and plan as documented. SUBJECTIVE: No fever or chills. Abd pain is better. SOB resolved with ativan. OBJECTIVE: NAD CV: RRR, no MRG . no JVD. Lungs: CTAB . Abd: soft, TTP in suprapubic area and LUQ. NL BS Ext: no edema or erythema . ASSESSMENT AND PLAN: 46 y/o lady with h/o Asthma and migraine who presented with LUQ pain and was found to have splenic infarct . 1- Acute splenic infarct. 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 hypercoagulable state can't be r/o - cont heparin gtt. bridge to coumadin - duration of AC to be determined - holter and ADRIEN as out pt - CCP pending - Appreciate Dr. Villalobos input. will order free [place] and [place] in urine. IF in urine need authorization 2- Transaminitis : improved - EBV nuclear Ag + . [place] spot pending - follow LFTs 3- SOB. du eot anxity , resolved with ativan. off IVF 4- 2 cm L ovarian cyst: f/u as out pt dispo : HLOC
[2017-06-24] MEDS: MOMETASONE FUROATE 220 MCG/IH INHALER IH SCH (21:44)
[2017-06-25] MEDS: HEPARIN INFUSION - 25,000 UNITS/500 ML INFUS.BAG IVPB SCH ×4 (01:22→22:19)
[2017-06-25 07:44] LABS: HEMATOCRIT 35.8 % (32.4-45.2); HEMOGLOBIN 12.2 GM/dL (10.7-15.3); MCH 29.7 pg (25.7-33.7); MCHC 34.2 g/dl (32.0-36.0); MEAN CELL VOLUME 86.9 fl (80-96); MEAN PLT VOLUME 8.6 fl (7.5-11.1); PLATELET COUNT 208 K/MM3 (134-434); RBC 4.12 M/mm3 (3.60-5.2); RDW 14.8 % (11.6-15.6); WHITE BLOOD COUNT 9.9 K/mm3 (4.0-10.0)
[2017-06-25 07:51] LABS: INR 1.99 (0.82-1.09); PROTHROMBIN TIME (PATIENT) 22.5 SEC (9.7-13.0)
[2017-06-25 08:08] LABS: CHLORIDE 106 mmol/L (98-107); POTASSIUM 4.2 mmol/L (3.5-5.1); SODIUM 139 mmol/L (136-145)
[2017-06-25 08:28] LABS: ALBUMIN 2.9 g/dl (3.4-5.0); ALK PHOS 253 U/L (45-117); ANION GAP 5 (8-16); BILIRUBIN,TOTAL 0.4 mg/dL (0.2-1.0); BLOOD UREA NITROGEN 7 mg/dL (7-18); CALCIUM 8.3 mg/dL (8.5-10.1); CO2 28 mmol/L (21-32); CREATININE 0.6 mg/dL (0.55-1.02); GLUCOSE,RANDOM 96 mg/dL (74-106); SGOT/AST 97 U/L (15-37); SGPT/ALT 215 U/L (12-78); TOT PROT 7.2 g/dl (6.4-8.2)
[2017-06-25] MEDS ORDERED: PT OWN MED DRAWER 7, Y5N ONE ×3 (08:52→22:11)
[2017-06-25] MEDS: DOCUSATE SODIUM 100 MG CAPSULE (FP) PO SCH (09:19)
[2017-06-25] MEDS: POLYETHYLENE GLYCOL 3350 119 GM BTL PO SCH ×2 (09:19→22:16)
[2017-06-25] MEDS: oxyCODONE HCL 5 MG TABLET PO PRN (09:23)
[2017-06-25] MEDS: NYSTATIN 100,000 UNIT/GM TOPICAL CREAM 15 GM TUBE TP SCH (09:26)
[2017-06-25 10:40] LABS: PLATELET ESTIMATE ADEQUATE
[2017-06-25] MEDS ORDERED: LORazepam 0.5 MG TABLET PO PRN (11:02)
--- NOTE | 2017-06-25 13:04 | PN ---
Progress Note, Physician Chief Complaint: Events noted Complains of left upper quadrant discomfort Vague chest discomfort possibly referred History of Present Illness: Patient was seen and examined. Awake and alert. Chart was reviewed Denies SOB or palpitations - Current Medication List Current Medications: Active Medications Docusate Sodium (Colace -) 100 mg PO DAILY [facility] Last Admin: 06/25/17 09:19 Dose: 100 mg Fluticasone Propionate (Flonase -) 2 spray NS DAILY PRN PRN Reason: Congestion Heparin Sodium (Porcine) (Heparin -) 3,600 unit 40 unit/kg (3600 unit) IVPUSH PRN PRN PRN Reason: For aPTT 35 to 45 seconds Heparin Sodium (Porcine) (Heparin -) 7,200 unit 80 unit/kg (7200 unit) IVPUSH PRN PRN PRN Reason: aPTT <35 seconds Heparin Sodium/Dextrose (Heparin Infusion -) 25,000 units in 500 mls @ 32.495 mls/hr IVPB TITR DAKSHA; 18 UNITS/KG/HR PRN Reason: Protocol Last Admin: 06/25/17 09:19 Dose: 12.18 units/kg/hr, 22 mls/hr Lorazepam (Ativan -) 0.5 mg PO HS PRN PRN Reason: ANXIETY Mometasone Furoate (Asmanex 220mcg -) 1 puff IH HS [facility] Last Admin: 06/24/17 21:44 Dose: 1 puff Nystatin (Mycostatin Cream -) 1 applic TP DAILY [facility] Last Admin: 06/25/17 09:26 Dose: 1 applic Nystatin (Nystatin Oral Suspension -) 500,000 units PO BID [facility] Ondansetron HCl (Zofran Injection) 4 mg IVPB Q6H PRN PRN Reason: NAUSEA AND/OR VOMITING Last Admin: 06/24/17 12:49 Dose: 4 mg Oxycodone HCl (Roxicodone -) 10 mg PO Q6H PRN PRN Reason: PAIN LEVEL 4 - 6 Last Admin: 06/25/17 09:23 Dose: 10 mg Polyethylene Glycol (Miralax (For Daily Use) -) 17 gm PO BID [facility] Last Admin: 06/25/17 09:19 Dose: 17 gm Sodium Chloride ([place] Nasal [place] -) 2 spray NS TID PRN PRN Reason: NASAL CONGESTION Last Admin: 06/23/17 21:43 Dose: 2 spray Warfarin Sodium (Coumadin -) 4 mg PO DAILY@1800 [facility] - Objective Vital Signs: Vital Signs Temperature 98.4 F 06/25/17 10:00 Pulse Rate 98 H 06/25/17 10:00 Respiratory Rate 16 06/25/17 10:00 Blood Pressure 127/67 06/25/17 10:00 O2 Sat by Pulse Oximetry (%) 93 L 06/25/17 09:00 Eyes: Yes: PERRL HENT: Yes: Atraumatic Neck: Yes: Supple Cardiovascular: Yes: Regular Rate and Rhythm, S1, S2 Respiratory: Yes: CTA Bilaterally Gastrointestinal: Yes: Normal Bowel Sounds, Soft, Tenderness Edema: No Labs: CBC, BMP 06/25/17 06:00 06/25/17 06:00 INR, PTT INR 1.99 (0.82-1.09) H D 06/25/17 06:00 Problem List - Problems (1) Abnormal liver enzymes Code(s): R74.8 - ABNORMAL LEVELS OF OTHER SERUM ENZYMES (2) Left sided abdominal pain Code(s): R10.9 - UNSPECIFIED ABDOMINAL PAIN (3) Splenic infarction Code(s): D73.5 - INFARCTION OF SPLEEN Assessment/Plan 1. Splenic infarction r/o cardioembolic source 2. 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 Heparin and Coumadin per INR. Monitor LFTs 2. Hypercoagulable work up to determine duration of anticoagulation therapy 3. Follow up holter monitor, then event recorder to r/o PAF if above unrevealing 4. ADRIEN as outpatient to exclude ENRIQUETA thrombus Further plans are to follow El Dempsey MD
[2017-06-25] MEDS: NYSTATIN 500,000 UNITS/5 ML SUSPENSION PO SCH ×2 (13:19→22:16)
--- NOTE | 2017-06-25 13:21 | PN ---
Physical Exam: SUBJECTIVE: Patient seen and examined at bed side this morning. Complaining of abdominal pain. No nausea or vomiting. Overnight, she became anxious and was given Ativan 0.5 mg two doses and was better. OBJECTIVE: Vital Signs Period Temp Pulse Resp BP Sys/Gauthier Pulse Ox Last 24 Hr 98.3 F-99.3 F 94-114 16-20 105-138/52-83 93-93 GENERAL: The patient is awake, alert, in no acute distress. HEAD: Normal with no signs of trauma. EYES: Extraocular movements intact, sclera anicteric, conjunctiva clear. No ptosis. ENT: Oral thrush +. +left upper molar impacted tooth NECK: Trachea midline, full range of motion, supple. no lad, no thyromegaly LUNGS: Breath sounds equal, clear to auscultation bilaterally, no wheezes, no crackles, no accessory muscle use. HEART: Regular rate and rhythm, S1, S2 without murmur, rub or gallop. ABDOMEN: Soft, LLQ/suprapubic tenderness, nondistended, normoactive bowel sounds , no guarding, no rebound, no masses. EXTREMITIES: 2+ dp and radial b/l pulses, warm, well-perfused, no edema. NEUROLOGICAL:No facial droop, Normal speech. PSYCH: Normal mood, normal affect. SKIN: Warm, dry, normal turgor, no rashes or lesions noted Laboratory Results - last 24 hr 06/21/17 06/21/17 06/23/17 06:15 09:05 06:30 WBC RBC Hgb Hct MCV MCH MCHC RDW Plt Count MPV Total Counted Neutrophils % Neutrophils % (Manual) Band Neutrophils % Lymphocytes % Lymphocytes % (Manual) Monocytes % (Manual) Eosinophils % (Manual) Platelet Estimate Hemoglobin A 97.5 Hemoglobin A2 2.5 Hemoglobin C 0 Hemoglobin S 0 Variant Hemoglobin TNP Hemoglobin Interpret Maternal Rh 0 Hemoglobin Solubility Negative PT with INR INR PTT (Actin FS) Sodium Potassium Chloride Carbon Dioxide Anion Gap BUN Creatinine Creat Clearance w eGFR Random Glucose Calcium Total Bilirubin AST ALT Alkaline Phosphatase Total Protein Albumin Gutm-9-Yetsvhnlevqb <9 Cycl Citrul Peptide IgG 10 Ihbp-5-Dplqvuvwjsnw Ab <9 Beta-2-GPI IgM Ab <9 06/24/17 06/25/17 06/25/17 17:00 00:30 06:00 WBC RBC Hgb Hct MCV MCH MCHC RDW Plt Count MPV Total Counted Neutrophils % Neutrophils % (Manual) Band Neutrophils % Lymphocytes % Lymphocytes % (Manual) Monocytes % (Manual) Eosinophils % (Manual) Platelet Estimate Hemoglobin A Hemoglobin A2 Hemoglobin C Hemoglobin S Variant Hemoglobin Hemoglobin Interpret Maternal Rh Hemoglobin Solubility PT with INR INR PTT (Actin FS) 52.1 H 57.3 H 59.4 H Sodium Potassium Chloride Carbon Dioxide Anion Gap BUN Creatinine Creat Clearance w eGFR Random Glucose Calcium Total Bilirubin AST ALT Alkaline Phosphatase Total Protein Albumin Klhm-7-Kaicteralxsi Cycl Citrul Peptide IgG Ywmo-7-Zdzlajhleloj Ab Beta-2-GPI IgM Ab 06/25/17 06/25/17 06/25/17 06:00 06:00 06:00 WBC 9.9 RBC 4.12 Hgb 12.2 Hct 35.8 MCV 86.9 MCH 29.7 MCHC 34.2 RDW 14.8 Plt Count 208 MPV 8.6 Total Counted 100 Neutrophils % No Result Required. Neutrophils % (Manual) 33.0 L Band Neutrophils % 1.0 Lymphocytes % No Result Required. Lymphocytes % (Manual) 50.0 H Monocytes % (Manual) 7 D Eosinophils % (Manual) 1.0 Platelet Estimate Adequate Hemoglobin A Hemoglobin A2 Hemoglobin C Hemoglobin S Variant Hemoglobin Hemoglobin Interpret Maternal Rh Hemoglobin Solubility PT with INR 22.50 H INR 1.99 H D PTT (Actin FS) Sodium 139 Potassium 4.2 Chloride 106 Carbon Dioxide 28 Anion Gap 5 L BUN 7 Creatinine 0.6 Creat Clearance w eGFR > 60 Random Glucose 96 Calcium 8.3 L Total Bilirubin 0.4 AST 97 H ALT 215 H Alkaline Phosphatase 253 H Total Protein 7.2 Albumin 2.9 L Gmjx-4-Ipouesbnohnh Cycl Citrul Peptide IgG Jotv-2-Hdsjppojajej Ab Beta-2-GPI IgM Ab 06/25/17 06/25/17 06:00 11:50 WBC RBC Hgb Hct MCV MCH MCHC RDW Plt Count MPV Total Counted Neutrophils % Neutrophils % (Manual) Band Neutrophils % Lymphocytes % Lymphocytes % (Manual) Monocytes % (Manual) Eosinophils % (Manual) Platelet Estimate Hemoglobin A Hemoglobin A2 Hemoglobin C Hemoglobin S Variant Hemoglobin Hemoglobin Interpret Maternal Rh Hemoglobin Solubility PT with INR INR PTT (Actin FS) Cancelled 67.6 H Sodium Potassium Chloride Carbon Dioxide Anion Gap BUN Creatinine Creat Clearance w eGFR Random Glucose Calcium Total Bilirubin AST ALT Alkaline Phosphatase Total Protein Albumin Flgx-1-Tkmowcxygdrv Cycl Citrul Peptide IgG Qlli-8-Hrleqskiqljr Ab Beta-2-GPI IgM Ab Active Medications Generic Name Dose Route Start Last Admin Trade Name Freq PRN Reason Stop Dose Admin Docusate Sodium 100 mg 06/19/17 10:00 06/25/17 09:19 Colace - PO 100 mg DAILY DAKSHA Administration Fluticasone Propionate 2 spray 06/23/17 20:30 Flonase - NS DAILY PRN Congestion Heparin Sodium (Porcine) 3,600 unit 06/23/17 12:40 Heparin - 40 unit/kg (3600 unit) IVPUSH PRN PRN For aPTT 35 to 45 seconds Heparin Sodium (Porcine) 7,200 unit 06/23/17 12:40 Heparin - 80 unit/kg (7200 unit) IVPUSH PRN PRN aPTT <35 seconds Heparin Sodium/Dextrose 25,000 units in 500 mls @ 32.495 mls/hr 06/23/17 20: 00 06/25/17 09:19 Heparin Infusion - IVPB 12.18 units/kg/hr TITR DAKSHA 22 mls/hr Protocol Administration 18 UNITS/KG/HR Lorazepam 0.5 mg 06/25/17 11:02 Ativan - PO HS PRN ANXIETY Mometasone Furoate 1 puff 06/19/17 22:00 06/24/17 21:44 Asmanex 220mcg - IH 1 puff HS DAKSHA Administration Nystatin 1 applic 06/18/17 10:00 06/25/17 09:26 Mycostatin Cream - TP 1 applic DAILY DAKSHA Administration Nystatin 500,000 units 06/25/17 11:15 06/25/17 13:19 Nystatin Oral Suspension - PO 500,000 units BID DAKSHA Administration Ondansetron HCl 4 mg 06/18/17 09:26 06/24/17 12:49 Zofran Injection IVPB 4 mg Q6H PRN Administration NAUSEA AND/OR VOMITING Oxycodone HCl 10 mg 06/20/17 21:00 06/25/17 09:23 Roxicodone - PO 10 mg Q6H PRN Administration PAIN LEVEL 4 - 6 Polyethylene Glycol 17 gm 06/22/17 22:00 06/25/17 09:19 Miralax (For Daily Use) - PO 17 gm BID DAKSHA Administration Sodium Chloride 2 spray 06/23/17 08:59 06/23/17 21:43 [place] Nasal [place] - NS 2 spray TID PRN Administration NASAL CONGESTION Warfarin Sodium 4 mg 06/25/17 11:17 Coumadin - PO DAILY@1800 COUNTS INCLUDE 234 BEDS AT THE [facility] ASSESSMENT/PLAN: Patient is a 46 year old female with PMH of migraines, asthma, recent tooth infection tx with amoxicillin presented with abdominal pain found to have splenic infarction # Splenic infarction, unknown cause. Could be due hypercoagulable states-was on control, EBV On Heparin Drip, bridging to coumadin INR 1.9 today, Will decrease Warfarin 5mg ---> 4mg Dr. Villalobos consult appreciated Has M anish, pending urine free kappa and [place]da EBV +, CMV+ # Oral thrush likely secondary to Flovent Nystatin swish and swallow Rinse mouth after the use of Flovent # Transaminitis : Improving Avoid hepatotoxic drugs Trend LFT's # Constipation Miralax Daily # Asthma Not in exacerbation continue flovent # Migraine Hold Acetaminophen containing meds # Anxiety Ativan 0.5 mg PO HS PRN # Left ovarian cyst-2 cm Follow up as out patient. # FEN Not on IV fluids Electrolytes to be repeated Regular diet # Prophylaxis For DVT- On Heparin drip For GI: Not indicated # Code Status: Full Code # Dispo: Duration of stay unknown. Admitted in Med-Surg/Inpatient. Illness, Investigation and Plan of care explained to the patient. She verbalized understanding. Case discussed with Dr. Kearney. Visit type - Emergency Visit Emergency Visit: Yes ED Registration Date: 06/17/17 Care time: The patient presented to the Emergency Department on the above date and was hospitalized for further evaluation of their emergent condition. - New Patient This patient is new to me today: Yes Date on this admission: 06/25/17 - Critical Care Critical Care patient: No - Discharge Referral Referred to [facility] Med [facility].C[facility] No
--- NOTE | 2017-06-25 15:35 | PN ---
Teaching Attending Note Name of Resident: Caroline Lawson ATTENDING PHYSICIAN STATEMENT I saw and evaluated the patient. I reviewed the resident's note and discussed the case with the resident. I agree with the resident's findings and plan as documented. SUBJECTIVE: No fever or chills. Abd pain is better. No sob or CP . had anxiety last night and responded to ativan. still with minimal R thigh pain OBJECTIVE: NAD CV: RRR, no MRG . no JVD. Lungs: CTAB . Abd: soft, TTP in LUQ. NL BS Ext: no edema or erythema . TTP on Lateral R thigh ASSESSMENT AND PLAN: 46 y/o lady with h/o Asthma and migraine who presented with LUQ pain and was found to have splenic infarct . 1- Acute splenic infarct. 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 hypercoagulable state can't be r/o - cont heparin gtt while bridging to coumadin - INR 1.9. give 4 mg of coumadin tonight - duration of AC to be determined - holter and ADRIEN as out pt - CCP NL , no indication of RA - Appreciate Dr. Villalobos input. free [place] and [place] in urine pending. urine IF need authorization 2- Transaminitis: from EBV and CMV. improved - EBV nuclear Ag + . [place] spot pending 3- SOB. due to anxity , resolved with ativan. off IVF give PRN PO ativan HS if needed 4- 2 cm L ovarian cyst: f/u as out pt Dispo: [facility]LOC
[2017-06-25] MEDS: WARFARIN NA 2 MG TABLET (UD) PO SCH (17:30)
[2017-06-25] MEDS: MOMETASONE FUROATE 220 MCG/IH INHALER IH SCH (22:15)
[2017-06-26] MEDS: oxyCODONE HCL 5 MG TABLET PO PRN (06:26)
[2017-06-26] MEDS: ONDANSETRON 4 MG/2 ML VIAL IVPB PRN (06:26)
[2017-06-26 07:14] LABS: HEMATOCRIT 35.8 % (32.4-45.2); HEMOGLOBIN 12.2 GM/dL (10.7-15.3); MCH 29.7 pg (25.7-33.7); MCHC 34.2 g/dl (32.0-36.0); MEAN CELL VOLUME 87.1 fl (80-96); MEAN PLT VOLUME 8.9 fl (7.5-11.1); PLATELET COUNT 216 K/MM3 (134-434); RBC 4.12 M/mm3 (3.60-5.2); RDW 14.9 % (11.6-15.6); WHITE BLOOD COUNT 10.6 K/mm3 (4.0-10.0)
[2017-06-26 07:28] LABS: INR 2.58 (0.82-1.09); PROTHROMBIN TIME (PATIENT) 29.2 SEC (9.7-13.0)
[2017-06-26 07:42] LABS: ANION GAP 9 (8-16); BILIRUBIN,TOTAL 0.4 mg/dL (0.2-1.0); BLOOD UREA NITROGEN 8 mg/dL (7-18); CALCIUM 8.6 mg/dL (8.5-10.1); CHLORIDE 105 mmol/L (98-107); CO2 26 mmol/L (21-32); CREATININE 0.5 mg/dL (0.55-1.02); GLUCOSE,RANDOM 90 mg/dL (74-106); POTASSIUM 4.3 mmol/L (3.5-5.1); SGOT/AST 90 U/L (15-37); SGPT/ALT 195 U/L (12-78); SODIUM 140 mmol/L (136-145); TOT PROT 7.1 g/dl (6.4-8.2)
[2017-06-26 07:43] LABS: ALK PHOS 240 U/L (45-117)
[2017-06-26] MEDS: NYSTATIN 500,000 UNITS/5 ML SUSPENSION PO SCH ×2 (09:06→22:19)
[2017-06-26] MEDS: DOCUSATE SODIUM 100 MG CAPSULE (FP) PO SCH (09:06)
[2017-06-26] MEDS: NYSTATIN 100,000 UNIT/GM TOPICAL CREAM 15 GM TUBE TP SCH (09:08)
[2017-06-26] MEDS: POLYETHYLENE GLYCOL 3350 119 GM BTL PO SCH ×2 (09:09→22:20)
--- NOTE | 2017-06-26 15:02 | PN ---
Progress Note, Physician Chief Complaint: Events noted Complains of left upper quadrant discomfort, but better History of Present Illness: Patient was seen and examined. Awake and alert. Chart was reviewed Denies SOB or palpitations - Current Medication List Current Medications: Active Medications Docusate Sodium (Colace -) 100 mg PO DAILY [facility] Last Admin: 06/26/17 09:06 Dose: 100 mg Fluticasone Propionate (Flonase -) 2 spray NS DAILY PRN PRN Reason: Congestion Heparin Sodium (Porcine) (Heparin -) 3,600 unit 40 unit/kg (3600 unit) IVPUSH PRN PRN PRN Reason: For aPTT 35 to 45 seconds Heparin Sodium (Porcine) (Heparin -) 7,200 unit 80 unit/kg (7200 unit) IVPUSH PRN PRN PRN Reason: aPTT <35 seconds Heparin Sodium/Dextrose (Heparin Infusion -) 25,000 units in 500 mls @ 32.495 mls/hr IVPB TITR DAKSHA; 18 UNITS/KG/HR PRN Reason: Protocol Last Admin: 06/25/17 22:19 Dose: Not Given Lorazepam (Ativan -) 0.5 mg PO HS PRN PRN Reason: ANXIETY Mometasone Furoate (Asmanex 220mcg -) 1 puff IH HS [facility] Last Admin: 06/25/17 22:15 Dose: 1 puff Nystatin (Mycostatin Cream -) 1 applic TP DAILY [facility] Last Admin: 06/26/17 09:08 Dose: 1 applic Nystatin (Nystatin Oral Suspension -) 500,000 units PO BID [facility] Last Admin: 06/26/17 09:06 Dose: 500,000 units Ondansetron HCl (Zofran Injection) 4 mg IVPB Q6H PRN PRN Reason: NAUSEA AND/OR VOMITING Last Admin: 06/26/17 06:26 Dose: 4 mg Polyethylene Glycol (Miralax (For Daily Use) -) 17 gm PO BID [facility] Last Admin: 06/26/17 09:09 Dose: 17 gm Sodium Chloride ([place] Nasal [place] -) 2 spray NS TID PRN PRN Reason: NASAL CONGESTION Last Admin: 06/23/17 21:43 Dose: 2 spray Warfarin Sodium (Coumadin -) 4 mg PO DAILY@1800 DAKSHA Last Admin: 06/25/17 17:30 Dose: 4 mg - Objective Vital Signs: Vital Signs Temperature 98.4 F 06/26/17 10:00 Pulse Rate 99 H 06/26/17 10:00 Respiratory Rate 18 06/26/17 10:00 Blood Pressure 111/60 06/26/17 10:00 O2 Sat by Pulse Oximetry (%) 93 L 06/26/17 09:00 Constitutional: Yes: Well Nourished HENT: Yes: Atraumatic Neck: Yes: Supple Cardiovascular: Yes: Regular Rate and Rhythm, S1, S2 Respiratory: Yes: CTA Bilaterally Gastrointestinal: Yes: Normal Bowel Sounds, Soft. No: Tenderness Edema: No Labs: CBC, BMP 06/26/17 06:00 06/26/17 06:00 INR, PTT INR 2.58 (0.82-1.09) H 06/26/17 06:00 Problem List - Problems (1) Abnormal liver enzymes Code(s): R74.8 - ABNORMAL LEVELS OF OTHER SERUM ENZYMES (2) Left sided abdominal pain Code(s): R10.9 - UNSPECIFIED ABDOMINAL PAIN (3) Splenic infarction Code(s): D73.5 - INFARCTION OF SPLEEN Assessment/Plan 1. Splenic infarction r/o cardioembolic source 2. 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 Heparin and Coumadin per INR. Monitor LFTs 2. Hypercoagulable work up to determine duration of anticoagulation therapy 3. Follow up holter monitor, extended external monitoring can be done as outpatient 4. ADRIEN as outpatient to exclude ENRIQUETA thrombus Further plans are to follow El Dempsey MD
--- NOTE | 2017-06-26 16:29 | PN ---
Progress Note (short form) - Note Progress Note: Subjective: abd pain improve d. no N/V . no SOB. no anxiety Objective: Vital Signs: Last Vital Signs Temp Pulse Resp BP Pulse Ox 98.5 F 99 H 18 130/75 93 L 06/26/17 14:15 06/26/17 14:15 06/26/17 14:15 06/26/17 14:15 06/26/17 09:00 Laboratory Results - last 24 hr 06/25/17 06/26/17 06/26/17 18:00 06:00 06:00 WBC 10.6 H RBC 4.12 Hgb 12.2 Hct 35.8 MCV 87.1 MCH 29.7 MCHC 34.2 RDW 14.9 Plt Count 216 MPV 8.9 PT with INR INR PTT (Actin FS) 68.2 H 48.5 H Sodium Potassium Chloride Carbon Dioxide Anion Gap BUN Creatinine Creat Clearance w eGFR Random Glucose Calcium Total Bilirubin AST ALT Alkaline Phosphatase Total Protein Albumin 06/26/17 06/26/17 06/26/17 06:00 06:00 11:15 WBC RBC Hgb Hct MCV MCH MCHC RDW Plt Count MPV PT with INR 29.20 H INR 2.58 H PTT (Actin FS) 77.0 H D Sodium 140 Potassium 4.3 Chloride 105 Carbon Dioxide 26 Anion Gap 9 BUN 8 Creatinine 0.5 L Creat Clearance w eGFR > 60 Random Glucose 90 Calcium 8.6 Total Bilirubin 0.4 AST 90 H ALT 195 H Alkaline Phosphatase 240 H Total Protein 7.1 Albumin 3.0 L Physical Exam: NAD CV: RRR, no MRG . no JVD. Lungs: CTAB . Abd: soft, TTP in LUQ. NL BS Ext: no edema or erythema. TTP on Lateral R thigh ASSESSMENT AND PLAN: 46 y/o lady with h/o Asthma and migraine who presented with LUQ pain and was found to have splenic infarct . 1- Acute splenic infarct. 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 hypercoagulable state can't be r/o - INR 2.5. cont heparin gtt till am for 24 hr overlap -give 4 mg of coumadin tonight - duration of AC to be determined - holter and ADRIEN as out pt - Appreciate Dr. Villalobos input. free [place] and LAmda in urine were canceled by lab. urine IF need authorization 2- Transaminitis: from EBV and CMV. improved - EBV nuclear Ag + . [place] spot pending 3- 2 cm L ovarian cyst: f/u as out pt Dispo: dc tomorrow if INR cont to be therapeutic Visit type - Emergency Visit Emergency Visit: Yes ED Registration Date: 06/17/17 Care time: The patient presented to the Emergency Department on the above date and was hospitalized for further evaluation of their emergent condition. - New Patient This patient is new to me today: No - Critical Care Critical Care patient: No
[2017-06-26] MEDS: WARFARIN NA 2 MG TABLET (UD) PO SCH (18:10)
[2017-06-26] MEDS: HEPARIN INFUSION - 25,000 UNITS/500 ML INFUS.BAG IVPB SCH (20:34)
[2017-06-26] MEDS: MOMETASONE FUROATE 220 MCG/IH INHALER IH SCH (22:19)
--- NOTE | 2017-06-27 00:11 | PN ---
Progress Note (short form) - Note Progress Note: Seen in follow up. No new complaints, in good spirits. Abdominal pain much improved. Inpatient Meds reviewed. Current Medications Generic Name Dose Route Start Last Admin Trade Name Freq PRN Reason Stop Dose Admin Docusate Sodium 100 mg 06/19/17 10:00 06/26/17 09:06 Colace - PO 100 mg DAILY DAKSHA Administration Fluticasone Propionate 2 spray 06/23/17 20:30 Flonase - NS DAILY PRN Congestion Heparin Sodium (Porcine) 3,600 unit 06/23/17 12:40 Heparin - 40 unit/kg (3600 unit) IVPUSH PRN PRN For aPTT 35 to 45 seconds Heparin Sodium (Porcine) 7,200 unit 06/23/17 12:40 Heparin - 80 unit/kg (7200 unit) IVPUSH PRN PRN aPTT <35 seconds Heparin Sodium/Dextrose 25,000 units in 500 mls @ 32.495 mls/hr 06/23/17 20: 00 06/26/17 20:34 Heparin Infusion - IVPB Not Given TITR DAKSHA Protocol 18 UNITS/KG/HR Lorazepam 0.5 mg 06/25/17 11:02 Ativan - PO HS PRN ANXIETY Mometasone Furoate 1 puff 06/19/17 22:00 06/26/17 22:19 Asmanex 220mcg - IH 1 puff HS DAKSHA Administration Nystatin 1 applic 06/18/17 10:00 06/26/17 09:08 Mycostatin Cream - TP 1 applic DAILY DAKSHA Administration Nystatin 500,000 units 06/25/17 11:15 06/26/17 22:19 Nystatin Oral Suspension - PO 500,000 units BID DAKSHA Administration Ondansetron HCl 4 mg 06/18/17 09:26 06/26/17 06:26 Zofran Injection IVPB 4 mg Q6H PRN Administration NAUSEA AND/OR VOMITING Polyethylene Glycol 17 gm 06/22/17 22:00 06/26/17 22:20 Miralax (For Daily Use) - PO Not Given BID DAKSHA Sodium Chloride 2 spray 06/23/17 08:59 06/23/17 21:43 [place] Nasal [place] - NS 2 spray TID PRN Administration NASAL CONGESTION Warfarin Sodium 4 mg 06/25/17 11:17 06/26/17 18:10 Coumadin - PO 4 mg DAILY@1800 DAKSHA Administration On exam: Last Vital Signs Temp Pulse Resp BP Pulse Ox 98 F 92 H 18 125/72 93 L 06/26/17 22:00 06/26/17 22:00 06/26/17 22:00 06/26/17 22:00 06/26/17 21:00 General: In no acute distress. Extremities: No pallor or icterus. Chest:breathing comfortably Abdomen: Non-distended Neuro: Alert, oriented, non-focal. Labs CBC, BMP 06/26/17 06:00 06/26/17 06:00 Assessment. Unheralded, unprovoked, sudden onset abdominal pain, attributed to a splenic infarct. Empiric anticoagulation warranted for a period of time, typically at least 3 months. Etiology obscure. Concomitant 'coincidental' transaminitis, attributed to viral hepatitis, unusual. Appreciate input cardiology re workup for a cardiac source - workup thus far negative. Would recommend use of a NOAC, for patient convenience, as outpatient anticoagulation. (with monitoring of LFTs).
[2017-06-27 08:00] LABS: HEMATOCRIT 35.7 % (32.4-45.2); HEMOGLOBIN 12.3 GM/dL (10.7-15.3); MCH 30.2 pg (25.7-33.7); MCHC 34.6 g/dl (32.0-36.0); MEAN CELL VOLUME 87.4 fl (80-96); MEAN PLT VOLUME 9.1 fl (7.5-11.1); PLATELET COUNT 215 K/MM3 (134-434); RBC 4.08 M/mm3 (3.60-5.2); RDW 15.2 % (11.6-15.6); WHITE BLOOD COUNT 8.7 K/mm3 (4.0-10.0)
[2017-06-27 08:12] LABS: INR 2.86 (0.82-1.09); PROTHROMBIN TIME (PATIENT) 32.3 SEC (9.7-13.0)
[2017-06-27 08:47] LABS: BILIRUBIN,DIRECT 0.2 mg/dL (0.0-0.2); BILIRUBIN,TOTAL 0.3 mg/dL (0.2-1.0)
[2017-06-27] MEDS ORDERED: PT OWN MED DRAWER 7, Y5N ONE (09:16)
[2017-06-27] MEDS: DOCUSATE SODIUM 100 MG CAPSULE (FP) PO SCH (09:36)
[2017-06-27] MEDS: NYSTATIN 500,000 UNITS/5 ML SUSPENSION PO SCH (09:37)
[2017-06-27] MEDS: POLYETHYLENE GLYCOL 3350 119 GM BTL PO SCH (09:37)
[2017-06-27] MEDS: NYSTATIN 100,000 UNIT/GM TOPICAL CREAM 15 GM TUBE TP SCH (09:39)
--- NOTE | 2017-06-27 11:11 | PN ---
Progress Note, Physician History of Present Illness: LUQ pain improving. Tolerating diet. - Current Medication List Current Medications: Active Medications Docusate Sodium (Colace -) 100 mg PO DAILY [facility] Last Admin: 06/27/17 09:36 Dose: 100 mg Fluticasone Propionate (Flonase -) 2 spray NS DAILY PRN PRN Reason: Congestion Heparin Sodium (Porcine) (Heparin -) 3,600 unit 40 unit/kg (3600 unit) IVPUSH PRN PRN PRN Reason: For aPTT 35 to 45 seconds Heparin Sodium (Porcine) (Heparin -) 7,200 unit 80 unit/kg (7200 unit) IVPUSH PRN PRN PRN Reason: aPTT <35 seconds Heparin Sodium/Dextrose (Heparin Infusion -) 25,000 units in 500 mls @ 32.495 mls/hr IVPB TITR DAKSHA; 18 UNITS/KG/HR PRN Reason: Protocol Last Admin: 06/26/17 20:34 Dose: Not Given Lorazepam (Ativan -) 0.5 mg PO HS PRN PRN Reason: ANXIETY Mometasone Furoate (Asmanex 220mcg -) 1 puff IH HS [facility] Last Admin: 06/26/17 22:19 Dose: 1 puff Nystatin (Mycostatin Cream -) 1 applic TP DAILY [facility] Last Admin: 06/27/17 09:39 Dose: 1 applic Nystatin (Nystatin Oral Suspension -) 500,000 units PO BID [facility] Last Admin: 06/27/17 09:37 Dose: 500,000 units Ondansetron HCl (Zofran Injection) 4 mg IVPB Q6H PRN PRN Reason: NAUSEA AND/OR VOMITING Last Admin: 06/26/17 06:26 Dose: 4 mg Polyethylene Glycol (Miralax (For Daily Use) -) 17 gm PO BID [facility] Last Admin: 06/27/17 09:37 Dose: Not Given Sodium Chloride ([place] Nasal [place] -) 2 spray NS TID PRN PRN Reason: NASAL CONGESTION Last Admin: 06/23/17 21:43 Dose: 2 spray Warfarin Sodium (Coumadin -) 4 mg PO DAILY@1800 DAKSHA Last Admin: 06/26/17 18:10 Dose: 4 mg - Objective Vital Signs: Vital Signs Temperature 98.9 F 06/27/17 06:00 Pulse Rate 90 05/07/18 06:00 Respiratory Rate 18 06/27/18 06:00 Blood Pressure 110/59 06/27/17 06:00 O2 Sat by Pulse Oximetry (%) 93 L 06/26/17 21:00 Constitutional: Yes: No Distress, Calm Neck: Yes: Supple Cardiovascular: Yes: Regular Rate and Rhythm Respiratory: Yes: Regular, CTA Bilaterally Gastrointestinal: Yes: Normal Bowel Sounds, Soft Edema: No Labs: CBC, BMP 06/27/17 06:30 06/26/17 06:00 INR, PTT INR 2.86 (0.82-1.09) H 06/27/17 06:30 Problem List - Problems (1) Abnormal liver enzymes Code(s): R74.8 - ABNORMAL LEVELS OF OTHER SERUM ENZYMES (2) Splenic infarction Code(s): D73.5 - INFARCTION OF SPLEEN Assessment/Plan 1. Splenic infarction r/o cardioembolic source 2. 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 D/c Heparin gtt, continue Coumadin per INR with therapeutic INR, LFTs declining 2. Hypercoagulable w/u ongoing, avoid OCPs 3. F/u holter monitor, then event recorder to r/o PAF if above unrevealing 4. ADRIEN as outpatient to exclude ENRIQUETA thrombus
--- NOTE | 2017-06-27 12:21 | PN ---
Progress Note, Physician History of Present Illness: No acute events overnight. Transaminase is improving. - Current Medication List Current Medications: Active Medications Docusate Sodium (Colace -) 100 mg PO DAILY [facility] Last Admin: 06/27/17 09:36 Dose: 100 mg Fluticasone Propionate (Flonase -) 2 spray NS DAILY PRN PRN Reason: Congestion Lorazepam (Ativan -) 0.5 mg PO HS PRN PRN Reason: ANXIETY Mometasone Furoate (Asmanex 220mcg -) 1 puff IH HS [facility] Last Admin: 06/26/17 22:19 Dose: 1 puff Nystatin (Mycostatin Cream -) 1 applic TP DAILY [facility] Last Admin: 06/27/17 09:39 Dose: 1 applic Nystatin (Nystatin Oral Suspension -) 500,000 units PO BID [facility] Last Admin: 06/27/17 09:37 Dose: 500,000 units Ondansetron HCl (Zofran Injection) 4 mg IVPB Q6H PRN PRN Reason: NAUSEA AND/OR VOMITING Last Admin: 06/26/17 06:26 Dose: 4 mg Polyethylene Glycol (Miralax (For Daily Use) -) 17 gm PO BID [facility] Last Admin: 06/27/17 09:37 Dose: Not Given Sodium Chloride ([place] Nasal [place] -) 2 spray NS TID PRN PRN Reason: NASAL CONGESTION Last Admin: 06/23/17 21:43 Dose: 2 spray Warfarin Sodium (Coumadin -) 4 mg PO DAILY@1800 [facility] Last Admin: 06/26/17 18:10 Dose: 4 mg - Objective Vital Signs: Vital Signs Temperature 98.9 F 06/27/17 06:00 Pulse Rate 90 06/27/17 06:00 Respiratory Rate 18 06/27/17 06:00 Blood Pressure 110/59 06/27/17 06:00 O2 Sat by Pulse Oximetry (%) 93 L 06/26/17 21:00 Constitutional: Yes: Well Nourished, No Distress, Calm Eyes: Yes: Conjunctiva Clear HENT: Yes: Atraumatic Neck: Yes: Supple Cardiovascular: Yes: Regular Rate and Rhythm Respiratory: Yes: Regular Neurological: Yes: Alert Labs: CBC, BMP 06/27/17 06:30 06/26/17 06:00 INR, PTT INR 2.86 (0.82-1.09) H 06/27/17 06:30 Laboratory Last Values WBC 8.7 K/mm3 (4.0-10.0) 06/27/17 06:30 RBC 4.08 M/mm3 (3.60-5.2) 06/27/17 06:30 Hgb 12.3 GM/dL (10.7-15.3) 06/27/17 06:30 Hct 35.7 % (32.4-45.2) 06/27/17 06:30 MCV 87.4 fl (80-96) 06/27/17 06:30 MCH 30.2 pg (25.7-33.7) 06/27/17 06:30 MCHC 34.6 g/dl (32.0-36.0) 06/27/17 06:30 RDW 15.2 % (11.6-15.6) 06/27/17 06:30 Plt Count 215 K/MM3 (134-434) 06/27/17 06:30 MPV 9.1 fl (7.5-11.1) 06/27/17 06:30 Total Counted 100 06/25/17 06:00 Neutrophils % No Result Required. 06/25/17 06:00 Neutrophils % (Manual) 33.0 % (42.8-82.8) L 06/25/17 06:00 Band Neutrophils % 1.0 % 06/25/17 06:00 Lymphocytes % No Result Required. 06/25/17 06:00 Lymphocytes % (Manual) 50.0 % (8-40) H 06/25/17 06:00 Monocytes % 9.3 % (3.8-10.2) 06/19/17 07:24 Monocytes % (Manual) 7 % (3.8-10.2) D 06/25/17 06:00 Eosinophils % 0.5 % (0-4.5) 06/19/17 07:24 Eosinophils % (Manual) 1.0 % (0-4.5) 06/25/17 06:00 Basophils % 0.4 % (0-2.0) 06/19/17 07:24 Basophils % (Manual) 0.0 % (0-2.0) 06/24/17 05:35 Myelocytes % (Man) 0 % (0-2) 06/24/17 05:35 Promyelocytes % (Man) 0 % (0-2) 06/24/17 05:35 Blast Cells % (Manual) 0 % (0-0) 06/24/17 05:35 Nucleated RBC % 0 % (0-0) 06/24/17 05:35 Metamyelocytes 0 % (0-2) 06/24/17 05:35 Platelet Estimate Adequate 06/25/17 06:00 ESR 64 mm/hr (0-20) H 06/22/17 06:49 Hemoglobin A 97.5 % (96.4-98.8) 06/21/17 06:15 Hemoglobin A2 2.5 % (1.8-3.2) 06/21/17 06:15 Hemoglobin C 0 % (0.0) 06/21/17 06:15 Hemoglobin S 0 % (0.0) 06/21/17 06:15 Variant Hemoglobin TNP 06/21/17 06:15 Hemoglobin Interpret (.) 06/21/17 06:15 Maternal Rh 0 % (0.0-2.0) 06/21/17 06:15 Hemoglobin Solubility Negative (Negative) 06/21/17 06:15 Haptoglobin 137 mg/dL (34-200) 06/19/17 07:24 PT with INR 32.30 SEC (9.7-13.0) H 06/27/17 06:30 INR 2.86 (0.82-1.09) H 06/27/17 06:30 PTT (Actin FS) 47.4 SECONDS (26.9-34.4) H D 06/27/17 06:30 LA PTT Baseline 45.2 sec (0.0-51.9) 06/21/17 09:05 dRVVT Confirm Interp 40.8 sec (0.0-47.0) 06/21/17 09:05 Protein C Activity 95 % (73-180) 06/19/17 07:24 Protein S Activity 60 % (63-140) L 06/19/17 07:24 Sodium 140 mmol/L (136-145) 06/26/17 06:00 Potassium 4.3 mmol/L (3.5-5.1) 06/26/17 06:00 Chloride 105 mmol/L (98-107) 06/26/17 06:00 Carbon Dioxide 26 mmol/L (21-32) 06/26/17 06:00 Anion Gap 9 (8-16) 06/26/17 06:00 BUN 8 mg/dL (7-18) 06/26/17 06:00 Creatinine 0.5 mg/dL (0.55-1.02) L 06/26/17 06:00 Creat Clearance w eGFR > 60 (>60) 06/26/17 06:00 Glucose 97 mg/dL (65-99) 06/19/17 07:24 Random Glucose 90 mg/dL (74-106) 06/26/17 06:00 Calcium 8.6 mg/dL (8.5-10.1) 06/26/17 06:00 Iron 95 ug/dL (27-159) 06/19/17 07:24 TIBC 328 ug/dL (250-450) 06/19/17 07:24 Iron Saturation 29 % (15-55) 06/19/17 07:24 Ferritin 474.841 ng/ml (6.9-282.5) H 06/19/17 07:24 Total Bilirubin 0.3 mg/dL (0.2-1.0) D 06/27/17 06:30 Direct Bilirubin 0.2 mg/dL (0.0-0.2) 06/27/17 06:30 GGT 780 IU/L (0-60) H 06/19/17 07:24 AST 82 U/L (15-37) H 06/27/17 06:30 ALT 176 U/L (12-78) H 06/27/17 06:30 Alkaline Phosphatase 221 U/L (45-117) H 06/27/17 06:30 Liver Fibrosis Score 0.47 (0.00-0.21) H 06/19/17 07:24 Liver Fibrosis Stage F1-f2 (.) 06/19/17 07:24 Troponin I < 0.02 ng/ml (0.00-0.05) 06/18/17 07:05 C-Reactive Protein 1.6 MG/DL (0.00-0.3) H 06/22/17 06:49 Total Protein 7.0 g/dl (6.4-8.2) 06/27/17 06:30 Total Protein (PEP) Cancelled 06/21/17 06:15 Albumin 3.0 g/dl (3.4-5.0) L 06/27/17 06:30 Albumin (PEP) Cancelled 06/21/17 06:15 Globulin Cancelled 06/21/17 06:15 Albumin/Globulin Ratio Cancelled 06/21/17 06:15 Pxqxp-8-Solgkduum (%) Cancelled 06/21/17 06:15 Spcip-8-Jowvzosib (%) Cancelled 06/21/17 06:15 Suimv-0-Nooolwagxsgjo 197 mg/dL (110-276) 06/19/17 07:24 Beta Globulins 1.0 g/dL (0.7-1.3) 06/21/17 06:15 Beta Globulins (%) Cancelled 06/21/17 06:15 Gamma Globulins (%) Cancelled 06/21/17 06:15 M-Micheal % Cancelled 06/21/17 06:15 Triglycerides 231 mg/dL (0-149) H 06/19/17 07:24 Cholesterol 152 mg/dL (100-199) 06/19/17 07:24 Apolipoprotein A-1 100 mg/dL (116-209) L 06/19/17 07:24 Total Amylase 31 U/L (25-115) 06/18/17 07:05 Lipase 74 U/L (73-393) 06/18/17 07:05 Hawy-8-Kfxyxcumxwkk <9 (0-20) 06/21/17 09:05 TSH 3.30 uIU/ml (0.358-3.74) 06/21/17 06:15 Patient Height (cm) 64 in (.) 06/19/17 07:24 Patient Weight (kg) 199 LBS (.) 06/19/17 07:24 Urine Color Yellow 06/17/17 16:13 Urine Appearance Slcloudy 06/17/17 16:13 Urine pH 5.0 (5.0-8.0) 06/17/17 16:13 Ur Specific [place] 1.013 (1.001-1.035) 06/17/17 16:13 Urine Protein Negative (NEGATIVE) 06/17/17 16:13 Urine Glucose (UA) Negative (NEGATIVE) 06/17/17 16:13 Urine Ketones Negative (NEGATIVE) 06/17/17 16:13 Urine Blood 1+ (NEGATIVE) H 06/17/17 16:13 Urine Nitrite Negative (NEGATIVE) 06/17/17 16:13 Urine Bilirubin Negative (<2.0 mg/dL) 06/17/17 16:13 Urine Urobilinogen 2.0 mg/dL (0.2-1.0) H 06/17/17 16:13 Ur Leukocyte Esterase Negative (NEGATIVE) 06/17/17 16:13 Urine WBC (Auto) 3 /hpf (3-5) 06/17/17 16:13 Urine RBC (Auto) 4 /hpf (0-3) 06/17/17 16:13 Ur Epithelial Cells Moderate /HPF (FEW) 06/17/17 16:13 Urine Bacteria Rare /hpf (NONE SEEN) 06/17/17 16:13 Urine Mucus Rare 06/17/17 16:13 Urine HCG, Qual Negative 06/17/17 16:13 CSF IgG Interpretation (.) 06/19/17 07:24 Stool Occult Blood Negative (NEGATIVE) 06/23/17 20:05 CLARISSA & SPEP Interp (.) 06/21/17 06:15 Total Protein (CLARISSA) 7.1 g/dL (6.0-8.5) 06/21/17 06:15 Albumin (CLARISSA) 3.1 g/dL (2.9-4.4) 06/21/17 06:15 Albumin/Globulin (CLARISSA) 0.8 (0.7-1.7) 06/21/17 06:15 Yavhc-5-Tmrlfsobz CLARISSA 0.3 g/dL (0.0-0.4) 06/21/17 06:15 Psumf-8-Ufxsccgwj CLARISSA 0.8 g/dL (0.4-1.0) 06/21/17 06:15 Gamma Globulins (CLARISSA) 1.8 g/dL (0.4-1.8) 06/21/17 06:15 CLARISSA M-Micheal 0.9 g/dL (Not Observed) H 06/21/17 06:15 CLARISSA Comments (.) 06/21/17 06:15 IEP IgG 1153 mg/dL (700-1600) 06/21/17 06:15 IEP IgA 448 mg/dL (87-352) H 06/21/17 06:15 IEP IgM 458 mg/dL (26-217) H 05/01/18 06:15 Rheumatoid Factor 22.3 IU/mL (0-15) H 06/21/17 06:15 Cycl Citrul Peptide IgG 10 units (0-19) 06/23/17 06:30 DARLEEN Screen Negative (.) 06/19/17 07:24 Gbsf-5-Wpsgaervrkam Ab <9 (0-25) 06/21/17 09:05 Beta-2-GPI IgM Ab <9 (0-32) 06/21/17 09:05 Smooth [employer] Intrp 17 Units (0-19) 06/19/17 07:24 Anti-Cardiolipin IgG Ab <9 GPL U/mL (0-14) 06/21/17 09:05 Anti-Cardiolipin IgA Ab 24 APL U/mL (0-11) H 06/21/17 09:05 Anti-Cardiolipin IgM Ab 20 MPL U/mL (0-12) H 06/21/17 09:05 Free [place] LC, Quant 23.2 mg/L (3.3-19.4) H 06/21/17 06:15 Free Lambda LC, Quant 66.6 mg/L (5.7-26.3) H 06/21/17 06:15 Free [place]/Lambda Ratio 0.35 (0.26-1.65) 06/21/17 06:15 CMV IgM Ab 215.0 AU/mL (0.0-29.9) H 06/19/17 07:24 CMV DNA Qual PCR Positive (Negative) H 06/19/17 07:24 EBV Nuclear Antigen >600.0 U/mL (0.0-17.9) H 06/19/17 07:24 Hep A IgM Ab Confirm Negative (Negative) 06/18/17 07:05 Hepatitis A Ab Total Positive (Negative) H 06/18/17 07:05 Hep Bs Antigen Negative (Negative) 06/18/17 07:05 Hep Bs Antibody Reactive (.) 06/18/17 07:05 Hep B Core Total Ab Negative (Negative) 06/18/17 07:05 Hep B Core IgM Ab Negative (Negative) 06/23/17 06:30 Hep C Ab Diagnostic <0.1 s/co ratio (0.0-0.9) 06/18/17 09:35 Liver Fibrosis Interp (.) 06/18/17 09:35 HIV 1&2 Antibody Screen Negative 06/22/17 06:49 HIV P24 Antigen Negative 06/22/17 06:49 Parvovirus B19 IgG Ab 2.5 index (0.0-0.8) H 06/19/17 07:24 Parvovirus B19 IgM Ab 0.2 index (0.0-0.8) 06/19/17 07:24 Ref Test Comments Cancelled 06/21/17 06:15 Blood Type O NEGATIVE 06/17/17 23:39 Antibody Screen Negative 06/17/17 23:39 Problem List - Problems (1) Abnormal liver enzymes Code(s): R74.8 - ABNORMAL LEVELS OF OTHER SERUM ENZYMES Assessment/Plan Clinically better. Transaminases, Alk phos improving slowly. Continue current care.
--- NOTE | 2017-06-27 14:29 | PN ---
Teaching Attending Note Name of Resident: Bridgett Weiss ATTENDING PHYSICIAN STATEMENT I saw and evaluated the patient. I reviewed the resident's note and discussed the case with the resident. I agree with the resident's findings and plan as documented. SUBJECTIVE: No fever or chills. no abd pain today. OBJECTIVE: NAD CV: RRR, no MRG Lungs: CTAB . Abd: soft, TTP in suprapubic area. no TTP in LUQ . NL BS Ext: no edema or erythema. TTP on Lateral R thigh ASSESSMENT AND PLAN: 46 y/o lady with h/o Asthma and migraine who presented with LUQ pain and was found to have splenic infarct . 1- Acute splenic infarct. 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 hypercoagulable state can't be r/o - INR 2.8. stop heparin gtt after 24 hour overlap. - dc on 4 mg of coumadin and needs INR in 2 days - duration of AC to be determined - holter and ADRIEN as out pt 2- Transaminitis: from EBV and CMV. improved - EBV nuclear Ag + . Foard spot pending to be followed 3- 2 cm L ovarian cyst: f/u as out pt Dc home. f/u GI, heme , PCP and [employer]
[2017-06-27 15:17] VITALS: BP 108/56; PULSE 126; TEMP 98.4
--- NOTE | 2017-06-27 17:33 | PN ---
Physical Exam: SUBJECTIVE: Patient seen and examined at bedside. No acute events overnight. Pt states that her abdominal pain is currently a 5/10. Denies chest pain, SOB, or lower extremity edema. OBJECTIVE: Vital Signs Period Temp Pulse Resp BP Sys/Gauthier Pulse Ox Last 24 Hr 98 F-99 F 90-128 18-20 108-125/56-82 93-96 GENERAL: The patient is lying in bed, awake, alert, and fully oriented, in no acute distress. HEAD: Normal with no signs of trauma. EYES: PERRL, extraocular movements intact, sclera anicteric, conjunctiva clear. ENT: Ears normal, nares patent, oropharynx clear without exudates, moist mucous membranes. NECK: Trachea midline, supple. LUNGS: Breath sounds equal, clear to auscultation bilaterally, no wheezes, no crackles, no accessory muscle use. +decreased inspiratory effort HEART: Regular rate and rhythm, S1, S2 without murmur, rub or gallop. ABDOMEN: Soft, obese, +diffusely TTP in midepigastric region. Mild guarding. EXTREMITIES: 2+ posterior tibial pulses, warm, well-perfused, no edema. NEUROLOGICAL: Cranial nerves II through XII grossly intact. Normal speech, gait not observed. PSYCH: Normal mood, normal affect. SKIN: Warm, dry, normal turgor, no rashes or lesions noted Laboratory Results - last 24 hr 06/21/17 06/26/17 06/27/17 09:05 18:45 06:30 WBC 8.7 RBC 4.08 Hgb 12.3 Hct 35.7 MCV 87.4 MCH 30.2 MCHC 34.6 RDW 15.2 Plt Count 215 MPV 9.1 PT with INR INR PTT (Actin FS) 79.7 H Total Bilirubin 06/27/17 06/27/17 06/27/17 06:30 06:30 06:30 MPV PT with INR 32.30 H INR 2.86 H PTT (Actin FS) 47.4 H D Total Bilirubin 0.3 D Direct Bilirubin 0.2 AST 82 H ALT 176 H Alkaline Phosphatase 221 H Total Protein 7.0 Albumin 3.0 L ASSESSMENT/PLAN: 46 y/o F with PMH depression, anxiety, asthma, who presented to ED with LUQ pain x 3 days. Pt admitted for splenic infarction possibly 2/2 viral infection ( EBV, CMV), r/o hypercoaguable state. #Splenic infarction possibly 2/2 viral infection (EBV, CMV), r/o hypercoaguable state -Heparin drip has been d/c after bridging 24hr with coumadin 4mg PO. Continue coumadin 4mg -INR 2.86 (from 2.5) -Will need INR check in 2 days-given rx, f/u with Dr. Villalobos outpt -holter and ADRIEN as outpt to exclude ENRIQUETA thrombus -will need immunofixation, kappa/lambda outpt - r/o MM or infectious cause #Transaminitis from EBV, CMV - improved -AST 82, ALT 176 -follow with LFTs - rx given, 1 wk after d/c -recommended f/u with Dr. Cole #2 cm L ovarian cyst -will f/u with Dr. Olguin - 1 wk #Dispo -d/c with GI, heme, primary (Dr. Meyer) proposal rep f/u Visit type - Emergency Visit Emergency Visit: No - New Patient This patient is new to me today: Yes Date on this admission: 06/27/17 - Critical Care Critical Care patient: No
--- NOTE | 2017-06-27 19:50 | DS ---
Physical Exam: SUBJECTIVE: Patient seen and examined at bedside. No acute events overnight. Pt states that her abdominal pain is currently a 5/10. Denies chest pain, SOB, or lower extremity edema. OBJECTIVE: Vital Signs Period Temp Pulse Resp BP Sys/Gauthier Pulse Ox Last 24 Hr 98 F-99 F 90-126 18-18 108-125/56-72 93-96 PHYSICAL EXAM GENERAL: The patient is lying in bed, awake, alert, and fully oriented, in no acute distress. HEAD: Normal with no signs of trauma. EYES: PERRL, extraocular movements intact, sclera anicteric, conjunctiva clear. ENT: Ears normal, nares patent, oropharynx clear without exudates, moist mucous membranes. NECK: Trachea midline, supple. LUNGS: Breath sounds equal, clear to auscultation bilaterally, no wheezes, no crackles, no accessory muscle use. +decreased inspiratory effort HEART: Regular rate and rhythm, S1, S2 without murmur, rub or gallop. ABDOMEN: Soft, obese, +diffusely TTP in midepigastric region. Mild guarding. EXTREMITIES: 2+ posterior tibial pulses, warm, well-perfused, no edema. NEUROLOGICAL: Cranial nerves II through XII grossly intact. Normal speech, gait not observed. PSYCH: Normal mood, normal affect. SKIN: Warm, dry, normal turgor, no rashes or lesions noted LABS Laboratory Tests 06/17/17 06/18/17 06/18/17 14:55 06:55 07:05 AST 261 H 269 H ALT 457 H 457 H Alkaline Phosphatase 06/19/17 06/19/17 06/19/17 07:24 07:24 07:24 AST 228 H ALT 457 H Triglycerides 231 H Apolipoprotein A-1 100 L CMV IgM Ab 215.0 H CMV DNA Qual PCR Positive H EBV Nuclear Antigen >600.0 H Parvovirus B19 IgG Ab 2.5 H 06/20/17 06/21/17 06/21/17 06:35 06:15 06:15 INR PTT (Actin FS) AST 272 H 229 H ALT 454 H 459 H Alkaline Phosphatase 295 H 294 H Apolipoprotein A-1 Rheumatoid Factor 22.3 H 06/21/17 06/21/17 06/21/17 06:15 06:15 09:05 IEP IgA 448 H IEP IgM 458 H Free [place] LC, Quant 23.2 H Free Lambda LC, Quant 66.6 H Factor II DNA Comment Pending 06/22/17 06/23/17 06/23/17 06:49 06:30 07:15 INR 1.23 H AST 154 H 105 H ALT 365 H 270 H Alkaline Phosphatase 285 H 06/23/17 06/23/17 06/24/17 17:00 23:10 05:35 PTT (Actin FS) 45.6 H 53.0 H AST 98 H ALT 235 H 06/24/17 06/24/17 06/24/17 05:35 05:35 12:05 INR 1.35 H PTT (Actin FS) 50.2 H 60.3 H 06/24/17 06/25/17 06/25/17 17:00 00:30 06:00 INR 1.99 H D PTT (Actin FS) 52.1 H 57.3 H IEP IgM 06/25/17 06/25/17 06/26/17 06:00 18:00 06:00 PTT (Actin FS) 68.2 H 48.5 H AST 97 H ALT 215 H 06/26/17 06/26/17 06/26/17 06:00 11:15 18:45 PTT (Actin FS) 77.0 H D 79.7 H AST 90 H ALT 195 H Radiology -06/17/17: CTAP: 4.3 x 2.7cm splenic focus -strongly suggestive of infarction, probably acute or subacute. Correlate clinically or with follow up CT. Mild splenomegaly 14.3cm in length. 2 cm involuting L ovarian cyst is noted. 1 cm L hepatic lobe hypodense focus probably representing cyst. Correlate with three month follow up MRI or CT. -06/17/17: b/l doppler: (-) DVT -06/18/17: CXR: (-) acute pathology -06/19/17: Abdomen sono: fatty liver vs hepatocellular dz. please correlate with liver enzymes. no gallstones identified. -06/20/17: ECHO: EF 65-70%. trace to mild MR. mild TR. no pericardial effusion. no clear evidence of vegetations. recommend ADRIEN, clinically correlate. -06/21/17: Liver sono: patent portal and hepatic venous systems. No evidence of splenic or b/l renal vein thrombosis. -06/22/17: CXR: No acute pathology -06/23/17: Sono - RLE: (-) DVT -06/24/17: CXR: no evidence CHF, pleural effusion or pneumothorax. no evidence pulm consolidations. atelectatic changes in L mid lung zone, L retrocardiac region. Micro -06/17/17: UCx: no growth -06/18/17: Blood cx: no growth -06/22/17: Blood cx: no growth HOSPITAL COURSE: Date of Admission:06/17/17 Date of Discharge: 06/27/17 Admit diagnosis: splenic infarction, possibly 2/2 EBV, CMV, cannot r/o hypercoaguable state 46 y/o F with PMH depression, anxiety and asthma, who presented to the ED with LLQ abdominal pain for 3 days with no improvement and chest tightness. On evaluation found to have splenic infarct on CTAP and was +EBV, CMV. Patient was started on heparin drip and bridged to coumadin. Once her INR was theraputic for 24 hrs (with readings of 2.5, 2.86), her heparin drip was discontinued. Upon d/c, she was sent home on coumadin 4mg PO qd, with recommended INR check within two days and heme follow up. During her follow-up, results from a hypercoaguable workup are also to be discussed, as well as possibility of multiple myeloma as pt with M spike and further evaluation of kappa and lambda urine chains are to be done. During her admission, pt also with transaminitis likely from EBV, CMV, and recommended GI and primary care follow up as an outpatient to check hepatic fnc. Her incidental finding of a 2cm L ovarian cyst will also be discussed with jail guard within one week. Minutes to complete discharge: 32 Discharge Summary Reason For Visit: INFARCTION OF SPLEEN Condition: Improved - Instructions Diet, Activity, Other Instructions: You were recently in the hospital due to an occlusion in the blood supply to part of your spleen, which likely caused the abdominal pain that you experienced. While you were on the floor, you were on a combination of blood thinners. We are sending you home on the blood thinner, Coumadin 4mg. Please take one pill every day in evening . You will need to have your blood checked ( INR) in two days with your primary care doctor. We are giving you a prescription for this. This result will be faxed by the lab to the precast molder , Dr. Villalobos. His fax number is provided on the prescription. We would also like you to follow up with Dr. Villalobos in 2 days. He will discuss the results of your hypercoaguability workup that was done in the hospital. We would also like you to have another blood test done in a week (liver panel). We are giving you a prescription for this. You may do this at any lab. The results will be faxed to the GI doctor, Dr. Cole. His fax number is provided on the prescription. We would also like you to follow up with him in 1 week. Please also follow-up with Dr. Meyer (Primary care) in one week to discuss your hospital visit and establish care, and Dr. Olguin, a beaver trapper to follow up the L sided ovarian cyst you have. some test results need to be followed after discharge like the hematology work up and Monospot In the meanwhile, you may resume your home medications. do not take control pills any more use nystatin for 5 days after your thrush disappears To summarize, please follow up with: -Dr. Villalobos, precast molder: 2 days - after getting INR check -Dr. Cole, GI: 1 week - 1 week - after liver panel done -Dr. Meyer- Primary care - to establish care - 1 week -Dr. Olguin - gynecology- 1 wk to discuss 2cm L ovarian cyst - Dr. Santiago . fro need for transesophageal echo and a holter monitor . If you develop severe abdominal pain, chest pain, or shortness of breath, please go to the hospital immediately. We hope you feel better soon. Referrals: Richard Meyer MD [Staff Physician] - 1 Week Estrada Cole MD [Staff Physician] - 1 Week Souleymane Cifuentes MD [Staff Physician] - 1 Week Rachid Villalobos MD [Staff Physician] - 06/29/17 Cornel Santiago MD [Staff Physician] - 1 Week Disposition: HOME - Home Medications Comprehensive Discharge Medication List: Ambulatory Orders Butalb/Acetaminophen/Caffeine [Uboeis-Hivmnkne-Vzip 50-325-40] 1 each PO DAILY 06/17/17 Cholecalciferol (Vitamin D3) [Vitamin D3 -] 1,000 unit PO DAILY 06/17/17 Fluticasone Propionate [Flovent Diskus] 250 mcg IH DAILY 06/17/17 Nystatin Cream [Mycostatin Cream -] 1 applic TP DAILY 06/17/17 Ranitidine [Zantac -] 150 mg PO BID 06/17/17 Miscellaneous Drug Not In Syst [Outpatient Lab Test] 1 each [facility] [place] 09/07 Miscellaneous Drug Not In Syst [Outpatient Lab Test] 1 each [facility] [place] 09/07 Warfarin Na [Coumadin -] 4 mg PO DAILY@1800 #15 tablet 06/27/17 This patient is new to me today: Yes Date on this admission: 06/27/17 Emergency Visit: No Critical Care patient: No - Discharge Referral Referred to [facility] Med [facility] No
== END 2017-06-27 15:39 | disposition home or self-care (01) | DRG 663 ==
LOC: JER 14:29 → JERBED 22:53 → J8W 06-18 01:36
PROVIDERS: ADMIT Internal Medicine; ATTEND Internal Medicine
DX: D73.5 Infarction of spleen (principal); N20.0 Calculus of kidney; B37.0 Candidal stomatitis; F32.9 Major depressive disorder, single episode, unspecified; F41.9 Anxiety disorder, unspecified; J45.909 Unspecified asthma, uncomplicated; E66.9 Obesity, unspecified; R74.0 Nonspecific elevation of levels of transaminase and lactic acid dehydrogenase [LDH]; K59.00 Constipation, unspecified; R74.8 Abnormal levels of other serum enzymes; G43.909 Migraine, unspecified, not intractable, without status migrainosus; K76.0 Fatty (change of) liver, not elsewhere classified; N83.202 Unspecified ovarian cyst, left side; M79.651 Pain in right thigh; Z68.34 Body mass index [BMI] 34.0-34.9, adult
CPT/HCPCS: 36415; 71045-TC-FY; 71046-TC-FY; 74177-TC; 76700-TC; 76705-TC; 80048; 80053; 80076; 81003; 81015; 81240; 81241; 82150; 82172; 82247; 82272; 82465; 82728; 82784; 82947; 82977; 83010; 83021; 83516; 83540; 83550; 83690; 83883; 84155; 84165; 84443; 84450; 84460; 84478; 84484; 84703; 85025; 85027; 85303; 85306; 85610; 85613; 85651; 85660; 85730; 85732; 86038; 86140; 86146; 86200; 86308; 86334; 86431; 86645; 86664; 86704; 86705; 86706; 86708; 86747; 86850; 86900; 86901; 87040; 87086; 87340; 87389; 87496; 88300-TC; 93005; 93010; 93225; 93226; 93306-TC; 93970-TC; 93971-TC; 97116-GP; 97161-GP; 99283-25; J0131; J1644; J7030